=== PATIENT | female | born 1945 | race Caucasian/White ===

== ENCOUNTER → 2017-01-17 | Outpatient (CLI) | payer OTHER ==
[~2017-01-17] MED LIST: ANTICRE6 PO; CEFU500T16 PO; CEPH500C PO; CHOL100040 PO; DILT-115 PO; GLUCTAB7 PO; HYDR-5688 PO; HYDR25TA4 PO; IPRASOL4 INH; MOME200A INH; MONT1TAB3 PO; MULT-506 PO; PREMARIN CREAM PV; PRLSR20 PO; TRMCR515 TOP; VNTHFA/IN INH
--- NOTE | 2017-01-17 14:30 | MAMMOGRAPHY REPORT ---
BILATERAL DIGITAL SCREENING MAMMOGRAM WITH CAD: 01/17/2017 CLINICAL HISTORY: Routine screening examination. TECHNIQUE: Bilateral CC, MLO and repeat right MLO views were obtained. Current study was also evalu ated with a Computer Aided Detection (CAD) system. COMPARISON: Comparison is made to exams dated: 01/15/2016 mammogram, 01/10/2014 mammogram, 01/12/2015 mammogram, 01/07/2013 mammogram, 01/07/2012 mammogram, and 04/25/2011 mammogram - [facility]. BREAST COMPOSITION: There are scattered areas of fibroglandular density in both breasts. FINDINGS: There are multiple bilateral circumscribed masses scattered throughout the breasts, some o f which are fluctuating in size compared to prior exams, most compatible with benign fibrocystic ivanna nges and fluctuating cysts. There are a few scattered benign-appearing microcalcifications bilatera lly. No suspicious spiculated or irregular mass, architectural distortion or cluster of suspicious microcalcifications is seen. IMPRESSION: ACR BI-RADS CATEGORY 1: NEGATIVE There is no mammographic evidence of malignancy. A 1 year screening mammogram is recommended. The p atient will receive written notification of the results. Approximately 10% of breast cancers are not detected with mammography. A negative mammographic repor t should not delay biopsy if a clinically suggestive mass is present. Myrtle Kent M.D. ay/:01/17/2017 10:30:59 [employer]ingle Roofer: Keira VERDUGO(Rodríguez)(Toya), [facility] letter sent: Normal 1/2 BI-RADS Code: ACR BI-RADS Category 1: Negative
== END | disposition home or self-care (01) ==
LOC: C.MAMM 10:06
PROVIDERS: ATTEND Family Medicine
DX: Z12.31 Encounter for screening mammogram for malignant neoplasm of breast (principal)

== ENCOUNTER → 2017-02-03 | Outpatient (CLI) | payer OTHER ==
[2017-02-03 17:15] LABS: BASO % 0.7 %; BASO ABS # 0.04 K/uL (0-0.2); COMPLETE YES; EOS % 2.4 %; HEMATOCRIT 36.7 % (37-47); LYMPH % 28.5 %; LYMPH ABS # 1.57 K/uL (1.2-3.4); MEAN CELL VOLUME 96.1 fL (80-100); MEAN CORPUSCULAR HEMOGLOBIN 31.2 pg (25-34); MEAN CORPUSCULAR HGB CONC 32.4 g/dl (32-36); MEAN PLATELET VOLUME 9.6 fL (7.4-10.4); MONO % 13.1 %; NEUT % 55.3 %; PLATELET COUNT 345 K/uL (130-400); RED BLOOD COUNT 3.82 M/uL (4.2-5.4); WHITE BLOOD COUNT 5.51 K/uL (4.8-10.8)
[2017-02-03 17:17] LABS: URINE APPEARANCE CLEAR (CLEAR); URINE BILIRUBIN NEG (NEG); URINE COLOR YELLOW; URINE NITRITE NEG (NEG); URINE SPECIFIC GRAVITY 1.014 (1.000-1.030); UROBILINOGEN NEG (NEG)
[2017-02-03 17:18] LABS: REVIEW REQ? NO
[2017-02-03 17:19] LABS: MANUAL MICROSCOPIC REQUIRED? NO
[2017-02-03 17:27] LABS: BLOOD UREA NITROGEN 25 mg/dl (7-18); BUN/CREATININE RATIO 20.6 (10-20); CALCIUM 10.5 mg/dl (8.5-10.1); CARBON DIOXIDE 28 mmol/L (21-32); CHLORIDE 101 mmol/L (98-107); GLUCOSE 96 mg/dl (70-99); POTASSIUM 4.1 mmol/L (3.5-5.1); SODIUM 138 mmol/L (136-145)
[2017-02-03 18:01] LABS: RATIO 171.2 mcg/mg (0-30.0)
== END | disposition home or self-care (01) ==
LOC: C.LABPVFM 11:38
PROVIDERS: ATTEND Internal Medicine
DX: I10 Essential (primary) hypertension (principal)

== ENCOUNTER → 2017-05-02 | Outpatient (CLI) | payer OTHER ==
[~2017-05-02] MED LIST changes: -CEPH500C PO
== END | disposition home or self-care (01) ==
LOC: C.LABPVFM 08:40
PROVIDERS: ATTEND Nurse Practitioner
DX: N18.9 Chronic kidney disease, unspecified (principal); N39.0 Urinary tract infection, site not specified

== ENCOUNTER 2017-05-04 21:03 | Emergency (ER) | payer OTHER ==
[~2017-05-04] VITALS: Ht 160 cm; Wt 94.0 kg
[~2017-05-04 21:03] MED LIST changes: -ANTICRE6 PO; -HYDR-5688 PO; -TRMCR515 TOP
[2017-05-04 21:05] VITALS: TEMP 36.5; Ht 160 cm; Wt 94.0 kg
[2017-05-04] MEDS ORDERED: HYDROCODONE/ACETAMOPHEN 5/325MG TAB PO STA (21:55)
[2017-05-04] MEDS ORDERED: NORCO 5/325MG HOME PACK PO ONE (22:00)
--- NOTE | 2017-05-04 22:09 | DIAGNOSTIC IMAGING REPORT ---
LEFT WRIST 6 VIEWS CLINICAL HISTORY: Fall with left wrist pain. FINDINGS: 6 views of the left wrist are obtained. No prior studies are available for comparison at the time of dictation. The skeletal structures are osteopenic. There is an avulsion fracture of the ulnar styloid. There is an impacted and comminuted fracture of the distal radial metaphysis with intra-articular extension, posteriorly distracted fragments, and apex volar angulation. Overlying soft tissue edema is noted. Suspect an age indeterminant and possibly chronic fracture through the distal scaphoid. This appears corticated on the frontal view. No additional fracture is identified. The radiocarpal articulation appears intact. Cystic degenerative change is seen within the lunate and the triquetrum. Arthritic change is noted at the first carpometacarpal articulation. A ring is present on the fourth finger. IMPRESSION: 1. There is an impacted, comminuted, and angulated fracture of the distal radial metaphysis as above with overlying soft tissue edema. 2. There is an avulsion fracture of the ulnar styloid. 3. Suspect an age indeterminant and possibly chronic fracture of the distal scaphoid. Correlate for point tenderness at this site. Consider a dedicated scaphoid view for further assessment. Electronically signed by: Tanmay Zuniga M.D. 05/04/2017 10:07 PM Dictated Date/Time: 05/04/2017 10:03 PM
[2017-05-04] MEDS ORDERED: ANTICRE6 PO (22:36)
[2017-05-05] MEDS ORDERED: HYDR-5688 PO (00:02)
[2017-05-05 00:14] VITALS: BP 125/67; PULSE 66; O2SAT 98
--- NOTE | 2017-05-05 04:03 | EMERGENCY ROOM VISIT NOTE ---
History Report prepared by Sergey: Carla Hall Under the Supervision of: Dr. Acosta Mays M.D. First contact with patient: 21:48 Chief Complaint: WRIST PAIN Stated Complaint: FELL, LT WRIST INJURY/PAIN History of Present Illness The patient is a 72 year old female who presents to the Emergency Room with complaints of an episode of wrist pain occurring a few hours ago. The patient states she was at a picnic and was walking up slanted stairs when she lost her balance and fell. She states that she went down on her hand in an attempt to catch herself. The patient currently rates her pain as a 7/10 in severity and an 8/10 in severity when it first occurred. The patient denies numbness or tingling in her hand. Pt denies LOC, headache, fevers, chills, diaphoresis, visual changes, neck pain, chest pain, breathing difficulties, nausea, vomiting , abdominal pain, back pain, melena, hematochezia, urinary symptoms, weakness, lymphadenopathy, rash, or other complaints. Source of History: patient Onset: few hours ago Position: wrist Symptom Intensity: 7/10 Timing: other (episode) Associated Symptoms: No numbness Note: The patient denies tingling. Review of Systems See HPI for pertinent positives and negatives. A total of ten systems were reviewed and were otherwise negative. Past Medical & Surgical Medical Problems: (1) Asthma (2) Hypertension (3) Kidney disease Family History Hypertension Kidney disease Kidney stones Lung disease Social History Smoking Status: Never Smoker Marital Status: Housing Status: lives with family Occupation Status: retired Current/Historical Medications Scheduled Cholecalciferol (Vitamin D-1000), 1 TAB PO DAILY Diltiazem Hcl Ext Rel (Tiazac), 240 MG PO DAILY Pidzklclbmh-Hskqtppjkre-Gmu C- (Glucosamine Chondroitin), 1 TAB PO DAILY Hydrochlorothiazide (Hctz), 25 MG PO DAILY Ipratropium-Albuterol (Duoneb), 1 TREATMENT INH QID Mometasone Furoate-Formoterol (Dulera 200/5 Mcg), 2 PUFFS INH BID Montelukast Sodium (Singulair), 10 MG PO DAILY Multivitamin (Multivitamin), 1 TAB PO DAILY Omeprazole (Prilosec), 40 MG PO DAILY [Antibiotic], 1 CAP PO BID [Premarin Cream], 1 APPLN PV UD Scheduled PRN Albuterol Hfa (Ventolin Hfa), 1-2 PUFFS INH Q6H PRN for SOB/Wheezing Hydrocodone/Acetaminophen 5MG/325MG (Adkins 5MG/325MG), 1-2 TABS PO Q6H PRN for Pain Allergies Coded Allergies: No Known Allergies (Verified , 05/04/17) Physical Exam Vital Signs Date Time Temp Pulse Resp B/P (MAP) Pulse Ox O2 Delivery O2 Flow Rate FiO2 05/05/17 00:14 66 16 125/67 98 05/04/17 22:46 96 20 185/133 98 Room Air 05/04/17 21:05 36.5 97 22 210/108 100 Room Air Physical Exam GENERAL: Awake, alert, uncomfortable appearing, in no distress HENT: Normocephalic, atraumatic. Oropharynx unremarkable. EYES: Normal conjunctiva. Sclera non-icteric. NECK: Supple. No nuchal rigidity. FROM. No JVD. RESPIRATORY: Clear to auscultation. CARDIAC: Regular rate, normal rhythm. Extremities warm and well perfused. Pulses equal. ABDOMEN: Soft, non-distended. No tenderness to palpation. No rebound or guarding. No masses. RECTAL: Deferred. MUSCULOSKELETAL: Chest examination reveals no tenderness. The back is symmetrical on inspection without obvious abnormality. There is no CVA tenderness to palpation. No joint edema. RUE atraumatic. Left shoulder, left upper arm, and left elbow atraumatic. Swelling and tenderness of left wrist. LUE is NVI. LOWER EXTREMITIES: Atraumatic. NEURO: Normal sensorium. No sensory or motor deficits noted. SKIN: No rash or jaundice noted. Medical Decision & Procedures ER Provider Diagnostic Interpretation: Radiology results as stated below per my review and radiologist interpretation: LEFT WRIST 6 VIEWS CLINICAL HISTORY: Fall with left wrist pain. FINDINGS: 6 views of the left wrist are obtained. No prior studies are available for comparison at the time of dictation. The skeletal structures are osteopenic. There is an avulsion fracture of the ulnar styloid. There is an impacted and comminuted fracture of the distal radial metaphysis with intra-articular extension, posteriorly distracted fragments, and apex volar angulation. Overlying soft tissue edema is noted. Suspect an age indeterminant and possibly chronic fracture through the distal scaphoid. This appears corticated on the frontal view. No additional fracture is identified. The radiocarpal articulation appears intact. Cystic degenerative change is seen within the lunate and the triquetrum. Arthritic change is noted at the first carpometacarpal articulation. A ring is present on the fourth finger. IMPRESSION: 1. There is an impacted, comminuted, and angulated fracture of the distal radial metaphysis as above with overlying soft tissue edema. 2. There is an avulsion fracture of the ulnar styloid. 3. Suspect an age indeterminant and possibly chronic fracture of the distal scaphoid. Correlate for point tenderness at this site. Consider a dedicated scaphoid view for further assessment. Electronically signed by: Tanmay Zuniga M.D. 05/04/2017 10:07 PM Dictated Date/Time: 05/04/2017 10:03 PM Chest x-ray. Findings: A chest x-ray was performed and revealed no pneumothorax , effusion, infiltrate, pulmonary edema, free air under the diaphragm, or wide mediastinum. Medications Administered Medications (Trade) Dose Ordered Sig/Can Route Start Time Stop Time Status Last Admin Dose Admin Acetaminophen/ Hydrocodone Bitart (Adkins 5/325 Tab) 1 tab NOW STAT PO 05/04/17 21:55 05/04/17 21:58 DC 05/04/17 22:17 1 TAB Acetaminophen/ Hydrocodone Bitart (Adkins 5/325mg Home Pack) 1 homepack UD ONCE PO 05/04/17 22:00 05/04/17 22:02 DC 05/04/17 22:17 1 HOMEPACK ED Course 2149: The patient was evaluated in room B9. A complete history and physical exam was performed. 2154: Ordered Adkins 5/325 Tab 1 tab PO. 2199: Ordered Adkins 5/325mg Home Pack 1 homepack PO. 2203: Discussed the patient's case Dr. Quiñones. He agreed to splinting, pain medication, and RICE therapy. He will see the patient at 9 AM in the office tomorrow. 2250: I reevaluated the patient and she now has left rib pain that is tender to palpation. She will have a chest x-ray completed. 0008: I reevaluated the patient. Discussed results and discharge instructions: She verbalized understanding and agreement. The patient is ready for discharge. Medical Decision Medication Reconciliation: I attest that I have personally reviewed the patient' s current medication list Patient was found to have a slightly elevated blood pressure due to circumstances. I do not believe that the patient requires hypertension monitoring. Prior records reviewed and summarized above. Triage Nursing notes reviewed and agree them. Additional history obtained from the patient's . The patient's history was concerning for traumatic injury. Differential diagnosis: Etiologies such as fracture, dislocation, neurovascular compromise, compartment syndrome, soft tissue injury, as well as others were entertained. Physical examination: Left wrist injury noted initially. The patient then was complaining of some left rib tenderness, albeit mild. On examination she did have some left lateral rib tenderness. ER treatment provided: Splinting Adkins Sling Icepack On reassessment the patient felt better. Diagnostics interpreted by me: Imaging studies: Xrays as above. Consultation: A consultation was placed with the orthopedist, Dr Mark. The case was discussed and diagnostics were reviewed. The patient will be seen tomorrow at 9 AM in the office. The patient has a left wrist fracture. This will need orthopedic evaluation. I suspect that she bruised her left ribs as well. Clinically she is doing well and the circumstances and will follow-up with orthopedics tomorrow morning. By the evaluation outlined above emergent etiologies such as open fracture, dislocation, neurovascular compromise, compartment syndrome, infections, pneumothorax, hemothorax, as well as others were deemed relatively unlikely. The patient and were informed about the findings as listed above. All questions were answered and they were pleased with the treatment. Return instructions were outlined and the patient was discharged in stable condition. Prescription management: Adkins Referral: The patient was referred to Dr. Mark of Orthopedics for follow-up care for her fracture. The patient was referred back to her primary physician for blood pressure recheck Consults Time Called: 2201 Consulting Physician: Dr. Quiñones Returned Call: 2203 Discussed the patient's case Dr. Quiñones. He agreed to splinting, pain medication , and RICE therapy. He will see the patient at 9 AM in the office tomorrow. Impression Primary Impression: Left wrist fracture Additional Impression: Hypertension Scribe Attestation The scribe's documentation has been prepared under my direction and personally reviewed by me in its entirety. I confirm that the note above accurately reflects all work, treatment, procedures, and medical decision making performed by me. Departure Information Dispostion Home / Self-Care Prescriptions Hydrocodone/Acetaminophen 5MG/325MG (Adkins 5MG/325MG) Tab 1-2 TABS PO Q6H Y for Pain, #20 TAB Prov: Acosta Mays MD 05/05/17 Referrals Jax Lobo M.D. (PCP) Forms HOME CARE DOCUMENTATION FORM, IMPORTANT VISIT INFORMATION, WORK / SCHOOL INSTRUCTIONS Patient Instructions My [facility] Additional Instructions ORTHOPEDIC INSTRUCTIONS: DO NOT drive, drink alcohol, operate machinery, or perform dangerous activities today. You were given medications in the ER that can affect your ability to safely function or operate a vehicle. Hydrocodone/acetaminophen 5/325mg: Take 1-2 pills every 6 hours as needed for pain. Avoid additional Acetaminophen/Tylenol, alcohol, operating machinery or dangerous equipment, working on ladders or roofs, DRIVING, or situations where being under the influence may be dangerous. It is recommended to use a stool softener such as Colace, 100mg twice daily while taking this medication to avoid constipation. Ibuprofen(Motrin, Advil) may be used for fever or pain. Use 600mg every six hours as needed. Take with food. Avoid using more than 2400mg in a 24 hour period. Do not use 2400mg per day for more than three consecutive days without physician direction. Prolonged inappropriate use can lead to stomach upset or ulcers. Ice compresses for 20 minutes at a time four times daily for 2-3 days. Use the sling as instructed. Remove your arm from the sling 4-6 times a day and move all the joints around to keep them loose. Rest and elevate your injury. Do not get the splint wet. If your splint feels excessively tight, you have worsening pain, develop numbness or tingling, or your digits appear blue, loosen the ariana wrap. Then reapply the ariana wrap gently without removing the splint. If your symptoms are not quickly relieved return to the ER for re- evaluation. Return to the ER immediately for any numbness, tingling, severe pain, chest pain , difficulty breathing, extreme swelling in the extremity or as needed. Follow-up with Dr. Mark at Dr. Fritz's office tomorrow morning at 9 AM. If you have any problems Call [phone]. Follow-up with your primary care physician next week for a recheck of your current condition and blood pressure. Problem Qualifiers
--- NOTE | 2017-05-05 11:10 | DIAGNOSTIC IMAGING REPORT ---
CHEST ONE VIEW PORTABLE CLINICAL HISTORY: 72 years year-old Female presenting with left rib pain, fall. COMPARISON STUDY: 11/30/2015. TECHNIQUE: Single portable upright AP view of the chest was performed. FINDINGS: Cardiomediastinal silhouette with mildly prominent main pulmonary artery, unchanged from prior. Minimal atherosclerosis of the aortic arch. Lungs and pleural spaces are clear. No displaced rib fracture. Upper abdomen normal. IMPRESSION: No acute cardiopulmonary disease or displaced rib fracture. Electronically signed by: Jax Calvert 05/05/2017 7:24 AM Dictated Date/Time: 05/05/2017 7:19 AM
[2017-05-05] MEDS ORDERED: TRMCR515 TOP (14:27)
== END 2017-05-05 00:15 | disposition home or self-care (01) ==
LOC: C.EDB 21:04
DX: S62.102A Fracture of unspecified carpal bone, left wrist, initial encounter for closed fracture (principal); I10 Essential (primary) hypertension; W10.9XXA Fall (on) (from) unspecified stairs and steps, initial encounter; J45.909 Unspecified asthma, uncomplicated; N18.9 Chronic kidney disease, unspecified; Z82.49 Family history of ischemic heart disease and other diseases of the circulatory system

== ENCOUNTER → 2017-05-05 | Outpatient (CLI) | payer OTHER ==
[~2017-05-05] MED LIST changes: +ANTICRE6 PO; +HYDR-5688 PO; +TRMCR515 TOP
--- NOTE | 2017-05-05 13:18 | DIAGNOSTIC IMAGING REPORT ---
CHEST 2 VIEWS ROUTINE CLINICAL HISTORY: PRE OP PAGER [id number], PT TO X-RAY 2ND, PT TO CPL 3RD COMPARISON STUDY: No previous studies for comparison. FINDINGS: The bones soft tissues and hemidiaphragms are normal. The cardiomediastinal silhouette is normal. The lungs are clear. The pulmonary vasculature is normal. IMPRESSION: Negative chest. No change from the prior study. Electronically signed by: Mikhail Hernandez M.D. 05/05/2017 1:17 PM Dictated Date/Time: 05/05/2017 1:16 PM
[2017-05-05 14:36] LABS: BASO % 0.2 %; BASO ABS # 0.01 K/uL (0-0.2); COMPLETE YES; EOS % 0.6 %; HEMATOCRIT 35.2 % (37-47); IG% 0.3 %; LYMPH % 15.9 %; LYMPH ABS # 1.02 K/uL (1.2-3.4); MEAN CELL VOLUME 90.7 fL (80-100); MEAN CORPUSCULAR HEMOGLOBIN 30.7 pg (25-34); MEAN CORPUSCULAR HGB CONC 33.8 g/dl (32-36); MEAN PLATELET VOLUME 9.2 fL (7.4-10.4); MONO % 9.2 %; NEUT % 73.8 %; PLATELET COUNT 353 K/uL (130-400); RED BLOOD COUNT 3.88 M/uL (4.2-5.4); WHITE BLOOD COUNT 6.41 K/uL (4.8-10.8)
[2017-05-05 14:44] LABS: URINE APPEARANCE CLEAR (CLEAR); URINE BILIRUBIN NEG (NEG); URINE COLOR YELLOW; URINE EPITHELIAL CELL AUTO >30 /lpf (0-5); URINE NITRITE NEG (NEG); UROBILINOGEN NEG (NEG)
[2017-05-05 14:46] LABS: BLOOD UREA NITROGEN 29 mg/dl (7-18); BUN/CREATININE RATIO 19.1 (10-20); CALCIUM 10.4 mg/dl (8.5-10.1); CARBON DIOXIDE 24 mmol/L (21-32); CHLORIDE 99 mmol/L (98-107); GLUCOSE 106 mg/dl (70-99); SODIUM 132 mmol/L (136-145)
[2017-05-05 14:47] LABS: MANUAL MICROSCOPIC REQUIRED? NO; REVIEW REQ? NO
[2017-05-05 14:48] LABS: PARTIAL THROMBOPLASTIN RATIO 1.1; PROTHROMBIN TIME (PATIENT) 10.5 SECONDS (9.0-12.0)
== END | disposition home or self-care (01) ==
LOC: C.LAB 12:36
PROVIDERS: ATTEND Orthopaedic Surgery Orthopaedic Surgery of the Spine
DX: Z01.810 Encounter for preprocedural cardiovascular examination (principal); Z01.811 Encounter for preprocedural respiratory examination; Z01.812 Encounter for preprocedural laboratory examination; I44.4 Left anterior fascicular block; R94.31 Abnormal electrocardiogram [ECG] [EKG]

== ENCOUNTER 2017-05-15 13:18 | Day surgery (SDC) | payer OTHER ==
[2017-05-05 14:05] VITALS: BMI 36.0
[2017-05-05 14:30] VITALS: BMI 36.0
[~2017-05-15] VITALS: Ht 160 cm; Wt 94.1 kg
[~2017-05-15 13:18] MED LIST changes: -ANTICRE6 PO; +CEFAZOLIN 2000 MG/60 ML D5W 60 ML IV SCH; -CEFU500T16 PO; +LACTATED RINGER'S 1000ML 1,000 ML IV SCH
[2017-05-15 13:45] VITALS: BP 180/81; PULSE 72; TEMP 36.8; O2SAT 96; Ht 160 cm; Wt 94.1 kg
[2017-05-15 14:31] LABS: BUN/CREATININE RATIO 20.7 (10-20); CALCIUM 10.4 mg/dl (8.5-10.1); CREATININE 1.2 mg/dl (0.60-1.20); POTASSIUM 3.6 mmol/L (3.5-5.1)
[2017-05-15] MEDS ORDERED: LIDOCAINE HCL 2% 2 ML VIAL (20MG/ML) ONE (14:56)
[2017-05-15] MEDS ORDERED: PROPOFOL IV EMULSION 10 MG/ML 20 ML VIAL IV ONE (14:56)
[2017-05-15] MEDS ORDERED: FENTANYL CITRATE INJ 50 MCG/1 ML 2 ML VIAL ONE ×3 (14:56→16:36)
[2017-05-15] MEDS ORDERED: ONDANSETRON INJ 2 MG/ML 2 ML VIAL ONE (14:56)
[2017-05-15] MEDS ORDERED: DEXAMETHASONE SOD INJ 4 MG/ML VIAL ONE (14:56)
[2017-05-15] MEDS ORDERED: MIDAZOLAM HCL 1 MG/ML 2ML VIAL ONE (14:56)
[2017-05-15] MEDS ORDERED: BUPIVACAINE 0.5 % 5 MG/1 ML MPF 30ML VIAL ONE (15:08)
--- NOTE | 2017-05-15 15:10 | History and Physical ---
History & Physical Date May 15, 2017. Chief Complaint Left wrist pain and deformity History of Present Illness The patient is a 72 year old female with complaints of left wrist pain post trauma numbness and tingling paresthesias Past Medical/Surgical History Medical Problems: (1) Asthma (2) Hypertension (3) Kidney disease Additional History Hepatic Disease: No Hypertension: Yes Heart Disease: Yes Allergies Coded Allergies: No Known Allergies (Verified , 05/15/17) Home Medications Scheduled Cholecalciferol (Vitamin D-1000), 1 TAB PO QAM Diltiazem Hcl Ext Rel (Tiazac), 240 MG PO QAM Trgdsknmiyc-Nwwllvjvabo-Tgt C- (Glucosamine Chondroitin), 1 TAB PO BID Hydrochlorothiazide (Hctz), 25 MG PO QAM Mometasone Furoate-Formoterol (Dulera 200/5 Mcg), 2 PUFFS INH BID Montelukast Sodium (Singulair), 10 MG PO QAM Multivitamin (Multivitamin), 1 TAB PO QAM Omeprazole (Prilosec), 40 MG PO QAM Scheduled PRN Albuterol Hfa (Ventolin Hfa), 1-2 PUFFS INH Q6H PRN for SOB/Wheezing Hydrocodone/Acetaminophen 5MG/325MG (Brea 5MG/325MG), 1-2 TABS PO Q6H PRN for Pain Ipratropium-Albuterol (Duoneb), 1 TREATMENT INH QID PRN for Shortness of Breath Triamcinolone Acet (Triamcinolone Acetonide), 1 APPLN TOP BID PRN for Itching [Premarin Cream], 1 APPLN PV UD PRN for DRYNESS Physical Examination Skin: warm/dry, no rash Eyes: normal inspection ENT: normal ENT inspection Head: normocephalic, atraumatic Neck: supple, trachea midline Respiratory/Chest: lungs clear Cardiovascular: regular rate, rhythm Abdomen / GI: normal bowel sounds Back: normal inspection Extremities: + pertinent finding (deformity left wrist with shortening) Diagnosis Comminuted interarticular fracture left wrist ASA Classification: ASA Class III Plan of Treatment Patient be taken to the operating room for a general anesthetic reduction will be performed application of external fixator left wrist
[2017-05-15] MEDS ORDERED: BUPIVACAINE/EPINEPHRINE 0.5% MPF 1:200,000 10 ML VIAL ONE (15:31)
[2017-05-15] MEDS ORDERED: SODIUM CHLORIDE 0.9% 1000ML 1,000 ML IV SCH (16:21)
[2017-05-15] MEDS ORDERED: HYDR-5688 PO (16:23)
[2017-05-15] MEDS ORDERED: LABETALOL HCL IV 5 MG/ML 20ML IV ONE ×2 (16:25→16:45)
--- NOTE | 2017-05-15 16:26 | Discharge Instructions ---
Discharge Instructions Date of Service May 15, 2017. Admission Reason for Admission: Left Wrist Fracture Discharge Discharge Diagnosis / Problem: left wrist fracture Discharge Goals Goal(s): Improve function, Therapeutic intervention Activity Recommendations Activity Limitations: per Instructions/Follow-up section Limited use of left arm. May do gentle range of motion of fingers. Instructions / Follow-Up Instructions / Follow-Up MEDICATIONS: * Resume previous medications unless instructed otherwise by your surgeon. * Always take pain medication on a full stomach or with food to avoid upset stomach. * Do not drink alcohol or drive while taking narcotics. * Ibuprofen or Tylenol may be taken if narcotic not needed. SPECIAL CARE INSTRUCTIONS: __ None _x_ Keep extremity elevated and iced x 48 hours; apply ice 20-30 minutes 8-10 times/day. May remove at night. _x_ Sling __24 hrs/day __ Remove at night __ Shoulder Immobilizer __ 24 hrs/day __ Remove at night _x_ Dressing _x_ Maintain until seen in office, may shower with plastic over site __ Remove dressings in 24-48 hours and then may shower __ Cover incisions with band-aids after showering __ Do not remove steri-strips Call physician if chills or temperature rises above 102 degrees or pain unrelieved by prescribed pain medications at . . Follow up in office with Dr. Jas Richards. 05/21. Call to schedule appointment if needed. Current Hospital Diet Patient's current hospital diet: Discharge Diet Recommended Diet: Regular Diet Procedures Procedures Performed: Closed reduction and application of external fixator left wrist. Pending Studies Studies pending at discharge: no Medical Emergencies . Who to Call and When: Medical Emergencies: If at any time you feel your situation is an emergency, please call 911 immediately. . Non-Emergent Contact Non-Emergency issues call your: Surgeon . "Provider Documentation" section prepared by [place]. . VTE Core Measure Inpt VTE Proph given/why not?: Treatment not indicated
--- NOTE | 2017-05-15 16:27 | [facility] Operative Report ---
Operative Report Operative Date May 15, 2017. Pre-Operative Diagnosis Comminuted interarticular fracture, left wrist. Post-Operative Diagnosis Same as preop. Procedure(s) Performed Closed reduction and application of external fixator left wrist. Surgeon Dr. Mark Assembled [employer] Repairer Surgeon(s) Jose Manuel Bernard, PAC Estimated Blood Loss 2 ml Findings Comminuted left wrist fracture Specimens None. Complication(s) None Disposition Recovery Room / PACU Indications Comminuted displaced left wrist fracture Description of Procedure Patient was taken to the operating room where an LMA anesthetic provided to the patient. Tourniquet was applied to her left upper extremity scrubbed with Betadine prep with ChloraPrep. Draped her sterile. We then exsanguinated the upper extremity to 250 mmHg. Mention with the surgery. We made a skin incision over the index metacarpal and the distal midportion of the radius. Soft tissue was divided is able to engage the index metacarpal with 2 Steinmann pins along with the radius as well to reduce the distal left radius in near anatomic position. We restored length the volar tilt to the wrist. External fixator tightened down on the left wrist closed the wounds with 4-0 nylon suture. Dressings applied. Tourniquet was deflated. Margin needle count correct at the close of procedure there is no apparent interoperative complications patient was safely brought to recovery room satisfactory and stable. Thank you I attest to the content of the Intraoperative Record and any orders documented therein. Any exceptions are noted below.
[2017-05-15] MEDS ORDERED: HYDROmorphone INJ 1 MG/ML SYR IV PRN (16:30)
[2017-05-15] MEDS ORDERED: ATROPINE SULFATE 0.1 MG/ML 5ML SYR IV PRN (16:30)
[2017-05-15] MEDS ORDERED: EpHEDrine SULFATE INJ 50 MG/ML AMP IV PRN (16:30)
[2017-05-15] MEDS ORDERED: FENTANYL CITRATE INJ 50 MCG/1 ML 2 ML VIAL IV PRN (16:30)
[2017-05-15] MEDS ORDERED: LABETALOL HCL IV 5 MG/ML 20ML IV PRN (16:30)
[2017-05-15] MEDS ORDERED: MEPERIDINE HCL 25 MG/ML CARP IV PRN (16:30)
[2017-05-15] MEDS ORDERED: HYDROCODONE/ACETAMOPHEN 5/325MG TAB PO PRN ×2 (16:30)
[2017-05-15] MEDS ORDERED: ONDANSETRON INJ 2 MG/ML 2 ML VIAL IV PRN (16:30)
--- NOTE | 2017-05-15 16:31 | DIAGNOSTIC IMAGING REPORT ---
FLUOROSCOPIC IMAGES OF THE LEFT WRIST CLINICAL HISTORY: External fixation. COMPARISON STUDY: Left wrist radiograph May 04, 2017. Fluoroscopy time: 11 seconds. FINDINGS: 2 fluoroscopic images from external fixation are noted. These images demonstrate the distal left radial and ulnar fractures. Alignment of the distal left radial fracture appears improved since prior exam. IMPRESSION: Fluoroscopic images from left wrist external fixation. Improved alignment of distal left radial fracture since prior exam. Electronically signed by: Franky Luciano M.D. 05/15/2017 4:29 PM Dictated Date/Time: 05/15/2017 4:28 PM
--- NOTE | 2017-05-15 17:27 | Anesthesiology Progress Note ---
Anesthesia Post Op Note Date & Time May 15, 2017 at 17:27 Vital Signs Pain Intensity: 4 Vital Signs Past 12 Hours Date Time Temp Pulse Resp B/P (MAP) Pulse Ox O2 Delivery O2 Flow Rate FiO2 05/15/17 17:24 36.9 05/15/17 17:18 73 16 96 05/15/17 17:18 72 16 05/15/17 17:16 172/82 05/15/17 17:13 73 17 05/15/17 17:13 72 17 90 05/15/17 17:11 183/70 05/15/17 17:08 74 16 95 05/15/17 17:08 74 16 05/15/17 17:06 180/95 05/15/17 17:03 72 17 05/15/17 17:03 72 17 94 05/15/17 17:02 173/72 05/15/17 16:59 71 14 05/15/17 16:59 71 14 94 05/15/17 16:56 182/83 05/15/17 16:54 72 17 05/15/17 16:54 71 17 97 05/15/17 16:52 173/88 05/15/17 16:49 69 16 97 05/15/17 16:49 69 16 05/15/17 16:48 60 13 98 05/15/17 16:48 61 13 05/15/17 16:47 198/81 05/15/17 16:43 69 16 05/15/17 16:43 71 16 100 05/15/17 16:42 197/102 05/15/17 16:38 74 23 05/15/17 16:38 75 23 100 05/15/17 16:37 200/93 05/15/17 16:33 72 20 05/15/17 16:33 72 20 100 05/15/17 16:32 195/105 05/15/17 16:30 76 12 05/15/17 16:30 75 12 100 05/15/17 16:27 197/82 05/15/17 16:25 80 16 05/15/17 16:25 80 16 99 05/15/17 16:23 190/90 05/15/17 16:21 197/80 05/15/17 16:20 79 18 05/15/17 16:20 79 18 97 05/15/17 16:20 36.7 79 16 197/80 97 Mask 10 05/15/17 13:45 36.8 72 18 180/81 (114) 96 Room Air Notes Mental Status: alert / awake / arousable, participated in evaluation Pt Amnestic to Procedure: Yes Nausea / Vomiting: adequately controlled Pain: adequately controlled Airway Patency, RR, SpO2: stable & adequate BP & HR: stable & adequate Hydration State: stable & adequate Anesthetic Complications: no major complications apparent The patient is doing well. She is at her baseline.
[2017-05-15] MEDS ORDERED: NURSING VERBAL MED ORDER ONE (18:30)
[2017-05-15] MEDS ORDERED: NORCO 5/325MG HOME PACK PO PRN (18:30)
[2017-05-15 18:40] VITALS: BP 167/74; PULSE 85; TEMP 36.7; O2SAT 95
== END 2017-05-15 18:53 | disposition home or self-care (01) ==
LOC: C.ACU 13:18
PROVIDERS: ATTEND Orthopaedic Surgery Orthopaedic Surgery of the Spine
DX: S52.572A Other intraarticular fracture of lower end of left radius, initial encounter for closed fracture (principal); X58.XXXA Exposure to other specified factors, initial encounter; N18.9 Chronic kidney disease, unspecified; I12.9 Hypertensive chronic kidney disease with stage 1 through stage 4 chronic kidney disease, or unspecified chronic kidney disease

== ENCOUNTER → 2017-06-24 | Outpatient (CLI) | payer OTHER ==
[~2017-06-24] MED LIST changes: -CEFAZOLIN 2000 MG/60 ML D5W 60 ML IV SCH; -LACTATED RINGER'S 1000ML 1,000 ML IV SCH
[2017-06-24 12:35] LABS: BLOOD UREA NITROGEN 19 mg/dl (7-18); BUN/CREATININE RATIO 15.9 (10-20); CARBON DIOXIDE 28 mmol/L (21-32); CHLORIDE 99 mmol/L (98-107); GLUCOSE 93 mg/dl (70-99); POTASSIUM 3.9 mmol/L (3.5-5.1); SODIUM 135 mmol/L (136-145)
[2017-06-24 12:47] LABS: URINE APPEARANCE CLOUDY (CLEAR); URINE BILIRUBIN NEG (NEG); URINE COLOR YELLOW; URINE EPITHELIAL CELL AUTO >30 /lpf (0-5); URINE NITRITE NEG (NEG); URINE PH 6.5 (4.5-7.5); URINE PROTIEN/CREAT RATIO 0.2 (0-0.2); URINE SPECIFIC GRAVITY 1.015 (1.000-1.030); URINE TOTAL PROTEIN 17.1 mg/dl (0-11.9); UROBILINOGEN NEG (NEG)
[2017-06-24 12:55] LABS: MANUAL MICROSCOPIC REQUIRED? NO; REVIEW REQ? NO
== END | disposition home or self-care (01) ==
LOC: C.LABPVFM 09:17
PROVIDERS: ATTEND Internal Medicine
DX: I10 Essential (primary) hypertension (principal)

== ENCOUNTER → 2017-09-19 | Outpatient (CLI) | payer OTHER ==
[2017-09-19 12:54] LABS: ALT/SGPT 22 U/L (12-78); AST/SGOT 15 U/L (15-37); BLOOD UREA NITROGEN 26 mg/dl (7-18); BUN/CREATININE RATIO 19.1 (10-20); CALCIUM 10.3 mg/dl (8.5-10.1); CARBON DIOXIDE 27 mmol/L (21-32); CHLORIDE 102 mmol/L (98-107); CREATININE 1.35 mg/dl (0.60-1.20); GLUCOSE 88 mg/dl (70-99); SODIUM 137 mmol/L (136-145)
[2017-09-19 12:57] LABS: ALB/GLOB RATIO 0.8 (0.9-2); ALKALINE PHOSPHATASE 113 U/L (45-117); CHOLESTEROL 189 mg/dl (0-200); CHOLESTEROL/HDL RATIO 3.8; HDL CHOLESTEROL 50 mg/dl; LDL CHOLESTEROL CALCULATED 118 mg/dl; TRIGLYCERIDES 103 mg/dl (0-150); VERY LOW DENSITY LIPOPROT CALC 21 mg/dl
== END | disposition home or self-care (01) ==
LOC: C.LABPVFM 08:30
PROVIDERS: ATTEND Family Medicine
DX: I10 Essential (primary) hypertension (principal); N18.9 Chronic kidney disease, unspecified

== ENCOUNTER → 2017-11-15 | Outpatient (CLI) | payer OTHER | END | disposition home or self-care (01) | LOC: C.LABSPEC 10:48 | PROVIDERS: ATTEND Internal Medicine | DX: J47.9 Bronchiectasis, uncomplicated (principal) ==

== ENCOUNTER → 2018-01-16 | Outpatient (CLI) | payer OTHER | END | disposition home or self-care (01) | LOC: C.LABPVFM 11:53 | PROVIDERS: ATTEND Family Medicine | DX: R39.9 Unspecified symptoms and signs involving the genitourinary system (principal) ==

== ENCOUNTER → 2018-01-19 | Outpatient (CLI) | payer OTHER ==
--- NOTE | 2018-01-20 14:56 | MAMMOGRAPHY REPORT ---
BILATERAL DIGITAL SCREENING MAMMOGRAM TOMOSYNTHESIS WITH CAD: 01/19/2018 CLINICAL HISTORY: Routine screening. Patient has no complaints. TECHNIQUE: Breast tomosynthesis in addition to standard 2D mammography was performed. Current study was also evaluated with a Computer Aided Detection (CAD) system. COMPARISON: Comparison is made to exams dated: 01/17/2017 mammogram, 01/15/2016 mammogram, 01/12/2015 m ammogram, 01/10/2014 mammogram, 01/07/2013 mammogram, and 01/07/2012 mammogram - [facility]. BREAST COMPOSITION: There are scattered areas of fibroglandular density in both breasts. FINDINGS: No suspicious masses, calcifications, or areas of architectural distortion are noted in ei ther breast. There has been no significant interval change compared to prior exams. Again noted are circumscribed benign-appearing masses scattered in bilateral breasts, which are not significantly ivanna nged. IMPRESSION: ACR BI-RADS CATEGORY 2: BENIGN There is no mammographic evidence of malignancy. A 1 year screening mammogram is recommended. The pa tient will receive written notification of the results. Approximately 10% of breast cancers are not detected with mammography. A negative mammographic report should not delay biopsy if a clinically suggestive mass is present. Cecy Sidhu M.D. /:01/19/2018 13:46:13 Rip Tailer: Evita POWELL)(), [facility] letter sent: Normal 1/2 BI-RADS Code: ACR BI-RADS Category 2: Benign
== END | disposition home or self-care (01) ==
LOC: C.MAMM 10:33
PROVIDERS: ATTEND Family Medicine
DX: Z12.31 Encounter for screening mammogram for malignant neoplasm of breast (principal)

== ENCOUNTER → 2018-01-22 | Outpatient (CLI) | payer OTHER | END | disposition home or self-care (01) | LOC: C.MAMM 09:03 | PROVIDERS: ATTEND Family Medicine | DX: Z13.820 Encounter for screening for osteoporosis (principal); M85.89 Other specified disorders of bone density and structure, multiple sites ==

== ENCOUNTER → 2018-02-06 | Outpatient (CLI) | payer OTHER ==
--- NOTE | 2018-02-06 13:35 | DIAGNOSTIC IMAGING REPORT ---
RIGHT SHOULDER 3 VIEWS CLINICAL HISTORY: Right shoulder pain. FINDINGS: 3 views of the right shoulder are obtained. No prior studies are available for comparison at the time of dictation. The skeletal structures are osteopenic. No fracture or dislocation is identified. There is concavity along the medial aspect of the humeral head with associated bony sclerosis, likely resenting a reverse Hill-Sachs lesion. The glenohumeral articulation is preserved head. The acromioclavicular joint shows mild productive change. The overlying soft tissues are normal as visualized. Imaged right upper lobe lung parenchyma appears clear. There is atherosclerotic calcification of the thoracic aorta. IMPRESSION: 1. No acute fracture or dislocation is identified in the right shoulder. 2. Osteopenia with a chronic-appearing reverse Hill-Sachs lesion identified Electronically signed by: Tanmay Zuniga M.D. 02/06/2018 1:33 PM Dictated Date/Time: 02/06/2018 1:28 PM
== END | disposition home or self-care (01) ==
LOC: C.RADPV 13:13
PROVIDERS: ATTEND Nurse Practitioner Family
DX: M25.511 Pain in right shoulder (principal); S42.201A Unspecified fracture of upper end of right humerus, initial encounter for closed fracture; X58.XXXA Exposure to other specified factors, initial encounter; M85.811 Other specified disorders of bone density and structure, right shoulder

== ENCOUNTER 2019-01-08 10:40 | Inpatient (IN) ==
--- NOTE | 2018-12-07 13:12 | PAT Medication Instructions ---
Medication Instructions Date of Service December 07, 2018 Home Medications albuterol sulfate 2 puff INHALATION Q6H PRN calcium carbonate [Calcium 600] 600 mg PO QAM cholecalciferol (vitamin D3) 1,000 unit PO QAM diltiazem HCl 240 mg PO QAM jgxyfrucsei-usw-hoahyegqa-vitC 2 tab PO BID hydrochlorothiazide 25 mg PO QAM ipratropium-albuterol 3 ml INHALATION Q8H PRN mometasone-formoterol [Dulera] 2 puff INHALATION BID montelukast 10 mg PO QAM multivitamin 1 cap PO QAM omeprazole 40 mg PO QAM STOP taking 2 weeks before surgery (or as soon as possible if surgery is within 2 weeks) bjhlpxnqdpa-zre-nbxxndfrb-vitC 2 tab PO BID DO NOT take the morning of surgery calcium carbonate [Calcium 600] 600 mg PO QAM cholecalciferol (vitamin D3) 1,000 unit PO QAM hydrochlorothiazide 25 mg PO QAM montelukast 10 mg PO QAM multivitamin 1 cap PO QAM Take morning of surgery With a small sip of water, OTHERWISE NOTHING TO EAT OR DRINK AFTER MIDNIGHT: albuterol sulfate 2 puff INHALATION Q6H PRN (use if needed; please bring with you to hospital day of surgery if possible) diltiazem HCl 240 mg PO QAM ipratropium-albuterol 3 ml INHALATION Q8H PRN (if needed) mometasone-formoterol [Dulera] 2 puff INHALATION BID omeprazole 40 mg PO QAM Other Notes If you have any questions please call us at [phone] or [phone] or [phone] or [phone]
--- NOTE | 2018-12-08 10:52 | Anesthesiology Consultation ---
Date of Service December 08, 2018 Assessment & Plan (1) Encounter for pre-operative examination: Plan: Nephrology contacted re: Na of 129. "Would not be concerned." CHECK SODIUM STAT AM DOS. Chart Review Chart Review: Acceptable Risk for Surgery and Patient seen in Pre Admission Testing Teaching & Discussion Instructed NPO after midnight before surgery, except medications with 15 cc of water. Medication instructions provided according to the PAT guidelines. History Surgery Operation Date: 01/08/19 10:45 Proposed Procedures p Right Total Knee Replacement - Lev Tracey DO Height/Weight Height: 5 ft 3 in Weight: 92.4 kg Allergies Allergy/AdvReac Type Severity Reaction Status Date / Time oxycodone [From OxyContin] AdvReac Mild itchy Verified 12/01/18 10:30 Medications Home Medications Medication Instructions Recorded Confirmed Last Taken albuterol sulfate 2 puff INHALATION Q6H PRN 12/01/18 12/01/18 Unknown calcium carbonate [Calcium 600] 600 mg PO QAM 12/01/18 12/01/18 Unknown cholecalciferol (vitamin D3) 1,000 unit PO QAM 12/01/18 12/01/18 Unknown [Vitamin D3] diltiazem HCl 240 mg PO QAM 12/01/18 12/01/18 Unknown buhropvfvnm-hsi-bsgnqnubd-vitC 2 tab PO BID 12/01/18 12/01/18 Unknown [Glucosamine Complex-MSM] hydrochlorothiazide 25 mg PO QAM 12/01/18 12/01/18 Unknown ipratropium-albuterol 3 ml INHALATION Q8H PRN 12/01/18 12/01/18 Unknown mometasone-formoterol [Dulera] 2 puff INHALATION BID 12/01/18 12/01/18 Unknown montelukast 10 mg PO QAM 12/01/18 12/01/18 Unknown multivitamin 1 cap PO QAM 12/01/18 12/01/18 Unknown omeprazole 40 mg PO QAM 12/01/18 12/01/18 Unknown Past Medical History Medical History Hypertension Asthma Dulera, uses neb at least a few times per week. Rarely uses albuterol HFA. CKD (chronic kidney disease) Follows with Dr Mackenzie GERD (gastroesophageal reflux disease) Obesity Past Surgical History Surgical History H/O tubal ligation History of colonoscopy History of open reduction and internal fixation (ORIF) procedure LEFT WRIST History of total shoulder replacement RIGHT 05/2018 Past Anesthesia History No Hx of Anesthesia Complications and No Family Hx of Anesthesia Complications History of PONV No Motion Sickness Screening History of Motion Sickness: No Social History Smoking Status: Never smoker Do You Dip or Chew Tobacco: No Hx Alcohol Use: Yes Alcohol type: wine alcohol intake frequency: holidays/special occasions only Hx Substance Use: No substance use type: does not use Exercise / Class Metabolic Activity III < 4 Walking/Shop/Light housework (Occ SOB with ambulation, denies CP, most activity is grocery shopping) Review of Systems Pt denies any recent chest pain, shortness of breath abve baseline, palpitations , cough above baseline, fever or URI. Physical Exam Vital Signs BP: 138/79 P: 78bpm SPO2: 96% RA T: 97.8 F R: 18 ENMT Mouth: + dentures and + edentulous Thyromental Distance: < 3.5 Finger Breadths (3) Mallampati Class: II Neck normal visual inspection; neck extension not limited Respiratory Auscultation: lungs clear to auscultation bilaterally and + bronchovesicular breath sounds Cardiovascular Rate/Rhythm: regular rate and regular rhythm Heart Sounds: + murmur (I/ systolic RSB) Vessels: no carotid bruit Extremities: no edema Testing Electrocardiogram Date: 12/08/18 Findings: + NSR @ (67) left axis deviation. Chest X-Ray Date: 12/08/18 Findings: + NAD Laboratory Results 12/08/18 11:06 12/08/18 11:06 Blood Type A Positive 12/08/18 11:06 Antibody Screen NEGATIVE 12/08/18 11:06 PT 10.3 Seconds (9.0-12.0) 12/08/18 11:06 INR 1.0 (0.9-1.1) 12/08/18 11:06 APTT 30.1 Seconds (21.0-31.0) 12/08/18 11:06
--- NOTE | 2018-12-08 11:28 | XRay Report ---
XR chest Pre-admission PA/Lat CLINICAL HISTORY: Preoperative evaluation. COMPARISON STUDY: Chest radiograph May 04, 2017. FINDINGS: Right shoulder arthroplasty is incidentally noted. There is no pneumothorax or pleural effu libia. There is no consolidation or evidence for pulmonary edema. Cardiomediastinal silhouette is stab le. The appearance of the chest is unchanged. IMPRESSION: No acute cardiopulmonary findings. Electronically signed by: Franky Luciano M.D. 12/08/2018 11:27 AM
[2018-12-08 12:13] LABS: Basophils # (auto) 0.03 K/uL (0-0.2); Basophils % (auto) 0.6 %; Eosinophils # (auto) 0.03 K/uL (0-0.5); Eosinophils % (auto) 0.6 %; Hematocrit (blood only) 34.6 % (37-47); Hemoglobin 11.9 g/dL (12.0-16.0); Immature Granulocytes # (auto) 0.02 K/uL (0.00-0.02); Immature Granulocytes % (auto) 0.4 %; Lymphocytes # (auto) 1.18 K/uL (1.2-3.4); Mean Corpuscular Hgb Conc 34.4 g/dL (32-36); Mean Corpuscular Volume 91.3 fL (80-100); Mean Platelet Volume 9.4 fL (7.4-10.4); Monocytes # (auto) 0.63 K/uL (0.11-0.59); Monocytes % (auto) 11.8 %; Neutrophils # (auto) 3.47 K/uL (1.4-6.5); Neutrophils % (auto) 64.6 %; Platelet Count 384 K/uL (130-400); RDW Coefficient of Variation 13.5 % (11.5-14.5); RDW Standard Deviation 44.8 fL (36.4-46.3); Red Blood Count 3.79 M/uL (4.2-5.4); White Blood Count 5.36 K/uL (4.8-10.8)
[2018-12-08 12:21] LABS: BUN Creatinine Ratio 16.5 (10-20); Creatinine Clr Calc Pharmacy 49.8 ml/min; Est GFR (African American) 59.2; Est GFR (Non-African American) 51.1; Partial Thromboplastin Ratio 1.2; Partial Thromboplastin Time 30.1 Seconds (21.0-31.0); Potassium 4.3 mmol/L (3.5-5.1); Prothrombin Time 10.3 Seconds (9.0-12.0)
--- NOTE | 2019-01-06 20:27 | History & Physical Report ---
Date of Service January 06, 2019 Assessment & Plan (1) Osteoarthritis of right knee: We will proceed with a right total knee arthroplasty. Postoperatively she will be started on aspirin for DVT prophylaxis. She will be kept overnight in the hospital for postop medical management. She plans to use [employer] upon discharge. Present on Admission?: Yes History of Present Illness Chief Complaint: Primary osteoarthritis of the right knee Primary Care Provider: Sherley Jeffrey MD Brandee is a pleasant 73-year-old female who is been dealing with chronic increasing right knee pain. X-rays and clinical examination have been diagnostic for primary osteoarthritis of the right knee. After failing conservative treatment, she has elected proceed with a right total knee arthroplasty. Allergies Allergy/AdvReac Type Severity Reaction Status Date / Time oxycodone [From OxyContin] Allergy Mild itchy Verified 01/04/19 13:55 Home Medications Home Medications Medication Instructions Recorded Confirmed Type albuterol sulfate 2 puff INHALATION Q6H PRN 12/01/18 12/01/18 History calcium carbonate [Calcium 600] 600 mg PO QAM 12/01/18 12/01/18 History cholecalciferol (vitamin D3) 1,000 unit PO QAM 12/01/18 12/01/18 History [Vitamin D3] diltiazem HCl 240 mg PO QAM 12/01/18 12/01/18 History foxxxfewtbc-ose-podnzlfmt-vitC 2 tab PO BID 12/01/18 12/01/18 History [Glucosamine Complex-MSM] hydrochlorothiazide 25 mg PO QAM 12/01/18 12/01/18 History ipratropium-albuterol 3 ml INHALATION Q8H PRN 12/01/18 12/01/18 History mometasone-formoterol [Dulera] 2 puff INHALATION BID 12/01/18 12/01/18 History montelukast 10 mg PO QAM 12/01/18 12/01/18 History multivitamin 1 cap PO QAM 12/01/18 12/01/18 History omeprazole 40 mg PO QAM 12/01/18 12/01/18 History Past Med/Surg History Medical History Hypertension Asthma Dulera, uses neb at least a few times per week. Rarely uses albuterol HFA. CKD (chronic kidney disease) Follows with Dr Dranov GERD (gastroesophageal reflux disease) Obesity Surgical History H/O tubal ligation History of colonoscopy History of open reduction and internal fixation (ORIF) procedure LEFT WRIST History of total shoulder replacement RIGHT 05/2018 Social History Preferred Language: [place] Communication Ability: Effective Beliefs That Will Affect Care: None Current Living Situation: Spouse Feels Safe at Home: Yes Smoking Status: Never smoker Hx Alcohol Use: Yes Hx Substance Use: No Review of Systems All systems reviewed & are unremarkable except as noted in HPI & below Physical Exam Constitutional: WD/WN, vitals as above Eyes: PERRL, conjunctivae normal, anicteric sclerae ENMT: external ear and nose normal, oropharynx normal Neck: trachea midline, no thyromegaly Respiratory: normal respiratory effort Cardiovascular: RRR, no murmur, no edema Gastrointestinal (Abdomen): normal bowel sounds, soft, nontender, no hepatosplenomegaly Musculoskeletal: On physical examination of the right knee there is a trace effusion. There is near full range of motion and no evidence of instability. There is significant tenderness palpation along the medial and lateral joint lines and over the distal femoral condyles. Psychiatric: A+Ox3, euthymic affect Results & Data Diagnostic Findings Radiographs of the right knee demonstrate advanced osteoarthritis with joint space narrowing osteophyte formation and gnnf-yg-emhd articulation.
[~2019-01-08 10:40] MED LIST changes: +ACETAMINOPHEN 500 MG TAB PO SCH; +BUPIVACAINE 0.5 % 5 MG/1 ML PF 10ML VIAL ONE; +CEFAZOLIN 2000MG 2,000 MG/15 ML SYR IV SCH; -CHOL100040 PO; -DILT-115 PO; +FAMOTIDINE 20 MG TAB PO SCH; +GABAPENTIN 300 MG PO SCH; -GLUCTAB7 PO; -HYDR-5688 PO; -HYDR25TA4 PO; -IPRASOL4 INH; +LR 500ML BOLUS, THEN 15ML/HR IV SCH; +LR 60ML/HR IV SCH; -MOME200A INH; -MONT1TAB3 PO; -MULT-506 PO; -PREMARIN CREAM PV; -PRLSR20 PO; +ROPIVACAINE 0.5% 5 MG/ML 30 ML VIAL ONE; +ROPIVACAINE 0.5% HCL/PF 150 MG, BUPIVACAINE 0.5% MPF 30 ML, EPINEPHrine 30MG/30ML (OR U... INFIL SCH; +TRANEXAMIC ACID 1,000 MG **IV Intra-op IV SCH; +TRANEXAMIC ACID 1,000 MG **IV Pre-op IV SCH; -TRMCR515 TOP; -VNTHFA/IN INH
--- NOTE | 2019-01-08 11:23 | History & Physical Bridge Note ---
Date of Service January 08, 2019 History & Physical Bridge Note I have examined the patient, reviewed the History & Physical and in the interval since the performance of the History & Physical I have noted the following changes of clinical significance: no changes noted
[2019-01-08] MEDS ORDERED: ORTHO JOINT ANESTHETIC ONE (11:42)
[2019-01-08] MEDS ORDERED: POVIDONE-IODINE OP SOLN 30 ML BTL ONE (11:42)
[2019-01-08] MEDS ORDERED: PROPOFOL IV EMULSION 10 MG/ML 20 ML VIAL IV ONE (11:44)
[2019-01-08] MEDS ORDERED: MIDAZOLAM HCL 1 MG/ML 2ML VIAL ONE ×2 (11:44→13:18)
[2019-01-08] MEDS ORDERED: fentaNYL citrate 100 MCG/2 ML VIAL ONE (11:44)
[2019-01-08] MEDS ORDERED: ONDANSETRON INJ 2 MG/ML 2 ML VIAL ONE (11:44)
[2019-01-08] MEDS ORDERED: ONDANSETRON INJ 2 MG/ML 2 ML VIAL IV PRN ×2 (13:08→15:47)
[2019-01-08] MEDS ORDERED: HYDROmorphone INJ 1 MG/ML SYRINGE IV PRN (13:08)
[2019-01-08] MEDS ORDERED: PHENYLEPHRINE 100MCG/ML 5ML SYR IV PRN (13:08)
[2019-01-08] MEDS ORDERED: ATROPINE SULFATE 0.1 MG/ML 10ML SYR IV PRN (13:08)
[2019-01-08] MEDS ORDERED: ePHEDrine sulfate 50 MG/ML AMP IV PRN (13:08)
--- NOTE | 2019-01-08 14:25 | Operative Report ---
Post Operative Report Pre & Post Diagnosis Operation Date: 01/08/19 12:50 Pre-Op Diagnosis: Right Knee Degenerative Joint Disease Post-Op Diagnosis: Right Knee Degenerative Joint Disease Procedure Operation Date: 01/08/19 12:50 Actual Procedures p Right Total Knee Arthroplasty, Cemented(Right) - Lev Tracey DO Surgeon Lev Tracey DO Rockboard Lather Lev Ponce PAC Estimated Blood Loss 10 Findings Consistent with Post-Op Diagnosis Specimens Right femoral and tibial bone Complications none Disposition Disposition: Recovery Room Indications Brandee is a pleasant 73-year-old female who presented my office with chronic increasing right knee pain. X-rays and clinical examination were diagnostic for primary osteoarthritis of the right knee. After failing conservative treatment, she elected proceed with a right total knee arthroplasty. Description of Procedure Implants used: I used a [employer] Vanguard total knee arthroplasty system with a size 67.5 femur, 67 tibia, 28 patella, and a size 10 PS polyethylene bearing. All components were cemented in place with Palacos G cement. The patient arrived [facility] for the above procedure. There were seen in the preoperative holding area and the operative extremity was identified and signed. There were given a preoperative antibiotic, a spinal anesthetic and an adductor nerve block. There were taken back to the operating room and laid on the table in supine position. There were given basic sedation. The operative knee was then prepped and draped in sterile fashion. A timeout was done, and the patient and the operative extremity was properly identified. A midline incision was made directly over the patella. Dissection was taken down to the extensor mechanism. A subvastus arthrotomy was used. The medial retinaculum was released and the fat pad was mostly left intact. The knee was flexed and the ACL, PCL, and meniscus were removed. A drill was sent down the center of the femoral canal followed by an intramedullary cathy. Off that cathy a distal femoral cutting block was placed. 9 mm was resected off the distal femur at 5� of valgus. A posterior referencing AP sizing guide was then placed on the distal femur. The femur measured to be a size 67.5. 2 drill holes were placed in 3� of external rotation. A 4-in-1 cutting block was then impacted into place. Anterior posterior and chamfer cuts were then made. The posterior stabilizing box guide was then impacted into place and the box was resected for the posterior stabilizing component. The proximal tibia was then exposed. A drill was sent down the center of the tibial canal followed by an intramedullary cathy. Off that cathy a proximal tibial resection guide was placed. The proximal tibia was then resected. The tibia measured to be a size 67. The tibial plate was then placed in the appropriate rotation and the tibia was punched. The posterior aspect of the knee was then opened up and any additional meniscus fragments and osteophytes were removed. Trial components were then placed. I used a size 10 PS polyethylene insert. The knee was brought through a full range of motion and felt to be stable. The patella was then everted and 8 mm was resected off the posterior aspect of the patella. The patella measured to be a size 28. 3 peg holes were then drilled. A trial patella was placed. The knee was once again brought through a full ran ge of motion and felt to be stable. Trial components were then removed. The surrounding soft tissues were injected with 100 cc of an orthopedic pain control cocktail. All components were then cemented into place with Palacos G cement. The final polyethylene insert was then snapped into place and the anterior bar was locked. Once cement was dry the tourniquet was deflated. Hemostasis was obtained. A dilute betadyne lavage was then done for 3 minutes. The joint was then irrigated with normal saline solution. The subvastus arthrotomy was then closed with #1 Vicryl suture. The skin was closed with 2-0 Vicryl, 3-0V lock suture, and carolyn. A soft compressive dressing was placed. The patient was then transferred to a hospital bed and taken to the postanesthesia care unit in stable condition. They tolerated the procedure well. I attest to the content of the Intraoperative Record and any orders documented therein. Any exceptions are noted below.
--- NOTE | 2019-01-08 15:19 | XRay Report ---
RIGHT KNEE 2 VIEWS History: Right total knee arthroplasty. Degenerative arthritis. Postop. FINDINGS: The patient is status post a right total knee arthroplasty. The hardware is intact. No frac ture or dislocation. Skin carolyn are in place. IMPRESSION: Right total knee arthroplasty. No evidence for hardware complication. Electronically signed by: Juan Martinez M.D. 01/08/2019 3:17 PM
--- NOTE | 2019-01-08 15:27 | Anesthesiology Progress Note ---
Date of Service January 08, 2019 Anesthesia Post Procedure Vital Signs Vital Signs: Temp Pulse Pulse Resp BP BP Pulse Ox 01/08/19 15:15 61 15 144/67 H 100 01/08/19 15:05 63 20 154/66 H 100 01/08/19 14:55 65 20 151/69 H 100 01/08/19 14:47 36.4 C L 74 21 152/74 H 100 01/08/19 11:15 36.8 C 85 20 154/95 H 98 Pain Intensity Right Knee: Pain Intensity: 0 Notes Mental Status: alert / awake / arousable Patient Amnestic to Procedure: Yes Nausea / Vomiting: adequately controlled Pain: adequately controlled Airway Patency, RR, SpO2: stable & adequate BP & HR: stable & adequate Hydration State: stable & adequate Neuraxial Anesthesia: was administered and sensory block is resolving Anesthetic Complications: no major complications apparent
[2019-01-08] MEDS ORDERED: SODIUM CHLORIDE 0.9% 1000ML 1,000 ML IV SCH (15:47)
[2019-01-08] MEDS ORDERED: ALBUT/IPRATROP 3MG/0.5MG NEB 3 ML VIAL INH PRN (15:47)
[2019-01-08] MEDS ORDERED: NALOXONE HCL 0.4 MG/1 ML VIAL/CARP IV PRN (15:47)
[2019-01-08] MEDS ORDERED: MAGNESIUM HYDROXIDE SUSP 30 ML UDC PO PRN (15:47)
[2019-01-08] MEDS ORDERED: BISACODYL 10 MG SUPP PR PRN (15:47)
[2019-01-08] MEDS ORDERED: HYDROmorphone INJ 0.5 MG/0.5 ML SYR IV PRN (15:47)
[2019-01-08] MEDS ORDERED: METOCLOPRAMIDE HCL INJ 5 MG/ML 2 ML VIAL IV PRN (15:47)
[2019-01-08] MEDS ORDERED: ALBUTEROL HFA 8 GM INHALER INH PRN (15:47)
[2019-01-08] MEDS: KETOROLAC TROMETHAMINE 15 MG/ML VIAL IV SCH (17:13)
[2019-01-08] MEDS: DOCUSATE SODIUM 100 MG CAP PO SCH (20:56)
[2019-01-08] MEDS: ASPIRIN 81 MG ECTAB PO SCH (20:56)
[2019-01-08] MEDS ORDERED: SENNA 8.6 MG TAB PO SCH (21:00)
[2019-01-08] MEDS: CEFAZOLIN 2000MG 2,000 MG/15 ML SYR IV SCH (21:52)
[2019-01-08] MEDS: HYDROCODONE/ACETAMOPHEN 5/325MG TAB PO PRN (21:52)
[2019-01-09] MEDS: KETOROLAC TROMETHAMINE 15 MG/ML VIAL IV SCH ×3 (01:10→06:16)
[2019-01-09] MEDS: CEFAZOLIN 2000MG 2,000 MG/15 ML SYR IV SCH ×2 (05:54→06:15)
[2019-01-09 06:13] LABS: Hematocrit (blood only) 31.7 % (37-47); Hemoglobin 10.3 g/dL (12.0-16.0); Mean Corpuscular Hgb Conc 32.5 g/dL (32-36); Mean Corpuscular Volume 93.2 fL (80-100); Mean Platelet Volume 9.1 fL (7.4-10.4); Platelet Count 309 K/uL (130-400); RDW Coefficient of Variation 12.9 % (11.5-14.5); RDW Standard Deviation 43.6 fL (36.4-46.3); White Blood Count 9.99 K/uL (4.8-10.8)
[2019-01-09 06:45] LABS: BUN Creatinine Ratio 16.3 (10-20); Calcium 9.6 mg/dl (8.5-10.1); Creatinine Clr Calc Pharmacy 41.3 ml/min; Est GFR (African American) 48.1; Est GFR (Non-African American) 41.5; Potassium 4.4 mmol/L (3.5-5.1)
[2019-01-09] MEDS: HYDROCODONE/ACETAMOPHEN 5/325MG TAB PO PRN ×2 (08:04→10:57)
[2019-01-09] MEDS ORDERED: dilTIAZem HCL 240 MG CAPCR PO SCH (09:00)
[2019-01-09] MEDS ORDERED: hydroCHLOROthiazide 25 MG TAB PO SCH (09:00)
[2019-01-09] MEDS ORDERED: PANTOprazole 40 MG TAB PO SCH (09:00)
[2019-01-09] MEDS ORDERED: MULTIVITAMIN TAB PO SCH (09:00)
[2019-01-09] MEDS ORDERED: MONTELUKAST SODIUM 10 MG TABLET PO SCH (09:00)
--- NOTE | 2019-01-09 09:11 | Orthopedic Progress Note ---
Date of Service January 09, 2019 Assessment & Plan (1) Osteoarthritis of right knee: Overall she is doing fairly well. She is not having much pain in the right knee. She is happy with her progress. She will be seen by physical therapy this morning to do ambulation and range of motion exercises. She can be discharged home later today with [facility]. She will follow-up with orthopedics in 2 weeks. Present on Admission?: Yes Carli Irvin was seen and examined at bedside this morning. Overall she is doing very well. She is not having much pain in the right knee. She is been up and ambulating around her room. She has no complaints. Physical Exam Vital Signs (Past 24 Hours): Last Vital Signs Temp 36.6 C 01/09/19 07:20 Pulse 78 01/09/19 07:20 Resp 18 01/09/19 07:20 BP 163/78 H 01/09/19 07:20 Pulse Ox 96 01/09/19 07:20 Musculoskeletal: On physical examination of the right knee, the dressing is clean and dry. She is sitting in a chair comfortably. She is active dorsiflexion and plantarflexion of her right ankle. Sensation is intact. Results & Data Laboratory Results H & H 12/08/18 12/08/18 12/08/18 Range/Units 11:06 11:06 11:06 WBC 5.36 (4.8-10.8) K/uL RBC 3.79 L (4.2-5.4) M/uL Hgb 11.9 L (12.0-16.0) g/dL Hct 34.6 L (37-47) % MCV 91.3 (80-100) fL MCH 31.4 (25-34) pg MCHC 34.4 (32-36) g/dL RDW Std Deviation 44.8 (36.4-46.3) fL RDW Coeff of Giorgi 13.5 (11.5-14.5) % Plt Count 384 (130-400) K/uL MPV 9.4 (7.4-10.4) fL Immature Gran % (Auto) 0.4 % Neut % (Auto) 64.6 % Lymph % (Auto) 22.0 % [place] % (Auto) 11.8 % Eos % (Auto) 0.6 % Baso % (Auto) 0.6 % Immature Gran # (Auto) 0.02 (0.00-0.02) K/uL Neut # (Auto) 3.47 (1.4-6.5) K/uL Lymph # (Auto) 1.18 L (1.2-3.4) K/uL [place] # (Auto) 0.63 H (0.11-0.59) K/uL Eos # (Auto) 0.03 (0-0.5) K/uL Baso # (Auto) 0.03 (0-0.2) K/uL PT 10.3 (9.0-12.0) Seconds INR 1.0 (0.9-1.1) APTT 30.1 (21.0-31.0) Seconds PTT Ratio 1.2 Sodium 129 L (136-145) mmol/L Potassium 4.3 (3.5-5.1) mmol/L Chloride 94 L (98-107) mmol/L Carbon Dioxide 28 (21-32) mmol/L Anion Gap 7.0 (3-11) BUN 18 (7-18) mg/dl Creatinine 1.07 (0.6-1.2) mg/dl Est Cr Clr Drug Dosing 49.8 ml/min Est GFR ( Amer) 59.2 Est GFR (Non-Af Amer) 51.1 BUN/Creatinine Ratio 16.5 (10-20) Glucose 93 (70-99) mg/dl Calcium 10.0 (8.5-10.1) mg/dl Blood Type Antibody Screen 12/08/18 01/08/19 01/09/19 Range/Units 11:06 11:07 05:53 WBC 9.99 (4.8-10.8) K/uL RBC 3.40 L (4.2-5.4) M/uL Hgb 10.3 L (12.0-16.0) g/dL Hct 31.7 L (37-47) % MCV 93.2 (80-100) fL MCH 30.3 (25-34) pg MCHC 32.5 (32-36) g/dL RDW Std Deviation 43.6 (36.4-46.3) fL RDW Coeff of Giorgi 12.9 (11.5-14.5) % Plt Count 309 (130-400) K/uL MPV 9.1 (7.4-10.4) fL Immature Gran % (Auto) % Neut % (Auto) % Lymph % (Auto) % [place] % (Auto) % Eos % (Auto) % Baso % (Auto) % Immature Gran # (Auto) (0.00-0.02) K/uL Neut # (Auto) (1.4-6.5) K/uL Lymph # (Auto) (1.2-3.4) K/uL [place] # (Auto) (0.11-0.59) K/uL Eos # (Auto) (0-0.5) K/uL Baso # (Auto) (0-0.2) K/uL PT (9.0-12.0) Seconds INR (0.9-1.1) APTT (21.0-31.0) Seconds PTT Ratio Sodium 134 L (136-145) mmol/L Potassium (3.5-5.1) mmol/L Chloride (98-107) mmol/L Carbon Dioxide (21-32) mmol/L Anion Gap (3-11) BUN (7-18) mg/dl Creatinine (0.6-1.2) mg/dl Est Cr Clr Drug Dosing ml/min Est GFR ( Amer) Est GFR (Non-Af Amer) BUN/Creatinine Ratio (10-20) Glucose (70-99) mg/dl Calcium (8.5-10.1) mg/dl Blood Type A Positive Antibody Screen NEGATIVE 01/09/19 Range/Units 05:53 WBC (4.8-10.8) K/uL RBC (4.2-5.4) M/uL Hgb (12.0-16.0) g/dL Hct (37-47) % MCV (80-100) fL MCH (25-34) pg MCHC (32-36) g/dL RDW Std Deviation (36.4-46.3) fL RDW Coeff of Giorgi (11.5-14.5) % Plt Count (130-400) K/uL MPV (7.4-10.4) fL Immature Gran % (Auto) % Neut % (Auto) % Lymph % (Auto) % [place] % (Auto) % Eos % (Auto) % Baso % (Auto) % Immature Gran # (Auto) (0.00-0.02) K/uL Neut # (Auto) (1.4-6.5) K/uL Lymph # (Auto) (1.2-3.4) K/uL [place] # (Auto) (0.11-0.59) K/uL Eos # (Auto) (0-0.5) K/uL Baso # (Auto) (0-0.2) K/uL PT (9.0-12.0) Seconds INR (0.9-1.1) APTT (21.0-31.0) Seconds PTT Ratio Sodium 134 L (136-145) mmol/L Potassium 4.4 (3.5-5.1) mmol/L Chloride 102 (98-107) mmol/L Carbon Dioxide 25 (21-32) mmol/L Anion Gap 7.0 (3-11) BUN 21 H (7-18) mg/dl Creatinine 1.27 H (0.6-1.2) mg/dl Est Cr Clr Drug Dosing 41.3 ml/min Est GFR ( Amer) 48.1 Est GFR (Non-Af Amer) 41.5 BUN/Creatinine Ratio 16.3 (10-20) Glucose 107 H (70-99) mg/dl Calcium 9.6 (8.5-10.1) mg/dl Blood Type Antibody Screen Coagulation 12/08/18 Range/Units 11:06 INR 1.0 (0.9-1.1) Diagnostic Findings Postoperative x-rays of the right knee show the prosthesis to be in anatomic alignment without any evidence of fracture, dislocation, or loosening.
--- NOTE | 2019-01-09 09:13 | Discharge Summary ---
Date of Service January 09, 2019 Admission HPI Per Admitting Provider Brandee is a pleasant 73-year-old female who is been dealing with chronic increasing right knee pain. X-rays and clinical examination have been diagnostic for primary osteoarthritis of the right knee. After failing con servative treatment, she has elected proceed with a right total knee arthroplasty. Specialty Data Orthopedic H & H 12/08/18 01/09/19 Range/Units 11:06 05:53 Hgb 11.9 L 10.3 L (12.0-16.0) g/dL Hct 34.6 L 31.7 L (37-47) % Coagulation 12/08/18 Range/Units 11:06 INR 1.0 (0.9-1.1) Discharge Data Consultations 01/08/19 15:47 Consult Case Management - Discharge Planning Routine Procedures Performed Operation Date: 01/08/19 12:50 Actual Procedures p Right Total Knee Arthroplasty, Cemented(Right) - Lev Tracey DO Hospital Course (1) Osteoarthritis of right knee: On January 08, 2019 Brandee arrived at [facility] and underwent a right total knee arthritis without complication. She had a spinal anesthetic and a right adductor nerve block. Postoperatively she was started on aspirin for DVT prophylaxis and discharged to general orthopedic floors. Her hospital course was uneventful. On postop day #1 her H&H was stable and her pain was well controlled. Her creatinine was a little bit high and she has known renal disease but given the risk benefit ratio I still feel that an aspirin 81 mg twice a day is best for DVT prophylaxis. She was seen by physical therapy. She was able to ambulate well around the room and her pain was well controlled. She was then discharged to home with [facility]. She will follow-up with orthopedics in 2 weeks. Discharge Instructions Home Medications Medication Instructions Recorded Confirmed albuterol sulfate 2 puff INHALATION Q6H PRN 12/01/18 12/01/18 calcium carbonate [Calcium 600] 600 mg PO QAM 12/01/18 01/08/19 cholecalciferol (vitamin D3) 1,000 unit PO QAM 12/01/18 01/08/19 [Vitamin D3] diltiazem HCl 240 mg PO QAM 12/01/18 01/08/19 eqklbhwcnhy-fuo-nhepnrfno-vitC 2 tab PO BID 12/01/18 12/01/18 [Glucosamine Complex-MSM] hydrochlorothiazide 25 mg PO QAM 12/01/18 01/08/19 ipratropium-albuterol 3 ml INHALATION Q8H PRN 12/01/18 12/01/18 mometasone-formoterol [Dulera] 2 puff INHALATION BID 12/01/18 01/08/19 montelukast 10 mg PO QAM 12/01/18 01/08/19 multivitamin 1 cap PO QAM 12/01/18 01/08/19 omeprazole 40 mg PO QAM 12/01/18 01/08/19 Previous Rx's Medication Instructions Recorded aspirin [Ecotrin Low Strength] 81 mg PO BID #84 tab 01/09/19 hydrocodone-acetaminophen [[place]] 1 - 2 tab PO Q4H PRN #30 tab 01/09/19
[2019-01-09] MEDS: DOCUSATE SODIUM 100 MG CAP PO SCH (10:56)
[2019-01-09] MEDS: ASPIRIN 81 MG ECTAB PO SCH (10:56)
== END 2019-01-09 11:00 | disposition home health service (06) | DRG 470 ==
LOC: ASU 10:40 → 3E 14:28

== ENCOUNTER 2019-07-23 06:21 | Inpatient (IN) ==
--- NOTE | 2019-06-22 17:13 | PAT Medication Instructions ---
Medication Instructions Date of Service June 23, 2019 Home Medications Dulera 2 puff INHALATION BID Glucosamine Complex-MSM 2 tab PO BID albuterol sulfate 2 puff INHALATION Q6H NEEDED calcium carbonate [Calcium 600] 600 mg PO QAM diltiazem HCl 240 mg PO QAM hydrochlorothiazide 25 mg PO QAM ipratropium-albuterol 3 ml INHALATION Q8H NEEDED montelukast 10 mg PO QAM multivitamin 1 cap PO QAM omeprazole 40 mg PO QAM cholecalciferol (vitamin D3) [Vitamin D3] 2,000 unit PO QAM STOP taking 2 weeks before surgery Glucosamine Complex-MSM 2 tab PO BID DO NOT take the morning of surgery calcium carbonate [Calcium 600] 600 mg PO QAM hydrochlorothiazide 25 mg PO QAM montelukast 10 mg PO QAM multivitamin 1 cap PO QAM cholecalciferol (vitamin D3) [Vitamin D3] 2,000 unit PO QAM Take morning of surgery With a small sip of water, OTHERWISE NOTHING TO EAT OR DRINK AFTER MIDNIGHT: Dulera 2 puff INHALATION BID diltiazem HCl 240 mg PO QAM omeprazole 40 mg PO QAM ipratropium-albuterol 3 ml INHALATION Q8H NEEDED (if needed) albuterol sulfate 2 puff INHALATION Q6H NEEDED (if needed; bring to hospital) Take evening before surgery Dulera 2 puff INHALATION BID albuterol sulfate 2 puff INHALATION Q6H NEEDED (if needed) ipratropium-albuterol 3 ml INHALATION Q8H NEEDED (if needed) Other Notes If you have any questions please call us at [phone] or [phone] or [phone] or [phone]
--- NOTE | 2019-06-23 10:41 | Anesthesiology Consultation ---
Date of Service June 23, 2019 Assessment & Plan (1) Encounter for pre-operative examination: Chart Review Chart Review: Acceptable Risk for Surgery and Patient seen in Pre Admission Testing Consults Requested none Teaching & Discussion Pre-Anesthesia Teaching/Discussion Notes: Instructed NPO after midnight before surgery, except medications with 15 cc of water. Medication instructions provided according to the PAT guidelines. History Surgery Operation Date: 07/23/19 10:25 Proposed Procedures p Left Total Knee Arthroplasty - Lev Tracey DO Height/Weight Height: 5 ft 3 in Weight: 82.5 kg Allergies Allergy/AdvReac Type Severity Reaction Status Date / Time oxycodone [From OxyContin] Allergy Mild itchy Verified 06/18/19 10:43 Medications Home Medications Medication Instructions Recorded Confirmed Last Taken Dulera 2 puff INHALATION BID 12/01/18 06/18/19 05/25/19 Glucosamine Complex-MSM 2 tab PO BID 12/01/18 06/18/19 05/24/19 albuterol sulfate 2 puff INHALATION Q6H PRN 12/01/18 06/18/19 05/23/19 calcium carbonate [Calcium 600] 600 mg PO QAM 12/01/18 06/18/19 05/24/19 diltiazem HCl 240 mg PO QAM 12/01/18 06/18/19 05/25/19 hydrochlorothiazide 25 mg PO QAM 12/01/18 06/18/19 05/24/19 montelukast 10 mg PO QAM 12/01/18 06/18/19 05/24/19 multivitamin 1 cap PO QAM 12/01/18 06/18/19 05/24/19 omeprazole 40 mg PO QAM 12/01/18 06/18/19 05/24/19 cholecalciferol (vitamin D3) 2,000 unit PO QAM 05/11/19 06/18/19 05/24/19 [Vitamin D3] ipratropium-albuterol 0.5 mg-3 3 ml INHALATION QID ml 06/23/19 06/23/19 Unknown mg(2.5 mg base)/3 mL nebulization soln Past Medical History Medical History Interstitial nephritis Varicose veins of lower extremity with inflammation Osteoarthritis Lymphedema Lumbar radiculopathy Hypertension Asthma Dulera, uses neb at least a few times per week. Rarely uses albuterol HFA. Cellulitis of left lower leg (Resolved) CKD (chronic kidney disease) Follows with Dr Mackenzie Chronic cough Diverticular disease GERD (gastroesophageal reflux disease) Obesity Exercise / Class Metabolic Activity III < 4 Walking/Shop/Light housework (Limited due to knee pain. Did walk around [place] though. Able to climb stairs. Denies CP with activity. Does get some SOB on humid days, attributes to asthma. Relieved with inhaler/nebulizer. ) Past Family History Family History Other Family history not known due to adoption Past Surgical History Surgical History H/O tubal ligation History of colonoscopy History of esophagogastroduodenoscopy (EGD) History of open reduction and internal fixation (ORIF) procedure LEFT WRIST--hardware in place History of tooth extraction all teeth History of total right knee replacement (TKR) 01/2019 [facility] History of total shoulder replacement RIGHT 05/08/18: Gonzalez #2, ETT #7.5, Grade 1 View Past Anesthesia History No Hx of Anesthesia Complications and No Family Hx of Anesthesia Complications History of PONV No Hx of PONV and Hx of Motion Sickness Social History Smoking Status: Never smoker Do You Dip or Chew Tobacco: No Hx Alcohol Use: Yes Alcohol type: wine alcohol intake frequency: holidays/special occasions only Hx Substance Use: No substance use type: does not use Review of Systems Patient denies chest pain, dyspnea on exertion, palpitations. +Joint Pain (Knee, Back) +Acid Reflux (Controlled on current medications) +Chronic cough (has been worked up, suspect due to asthma?) +Wheeze/SOB (occasionally due to asthma, relieved with inhaler/nebulizer) Physical Exam Vital Signs BP: 143/81 P: 63 R: 18 T: 97.6 SPO2: 99% on RA Constitutional + obese ENMT Mouth: + dentures (Upper and lower dentures) and + edentulous Thyromental Distance: > or= 3.5 Finger Breadths (4) Mallampati Class: I Neck normal visual inspection; neck extension not limited Respiratory normal respiratory effort Auscultation: lungs clear to auscultation bilaterally Cardiovascular Rate/Rhythm: regular rate and regular rhythm Heart Sounds: + murmur (1/6 systolic) Vessels: no carotid bruit Neurologic moves all extremities Psychiatric Orientation: alert and oriented x 3 Testing Laboratory Results 06/23/19 10:51 06/23/19 10:51 PT 10.3 Seconds (9.0-12.0) 06/23/19 10:51 INR 1.0 (0.9-1.1) 06/23/19 10:51 APTT 25.9 Seconds (21.0-31.0) 06/23/19 10:51 Blood Type A Positive 06/23/19 10:51 Antibody Screen NEGATIVE 06/23/19 10:51 Electrocardiogram Date: 12/08/18 Findings: + NSR @ (67) and + no change from (04/01/18) Left axis deviation Chest X-Ray Date: 12/08/18 Findings: + NAD
[2019-06-23 11:15] LABS: Basophils # (auto) 0.02 K/uL (0-0.2); Basophils % (auto) 0.5 %; Eosinophils # (auto) 0.09 K/uL (0-0.5); Eosinophils % (auto) 2.2 %; Hematocrit (blood only) 34.1 % (37-47); Hemoglobin 11.5 g/dL (12.0-16.0); Lymphocytes # (auto) 1.23 K/uL (1.2-3.4); Lymphocytes % (auto) 30.1 %; Mean Corpuscular Hemoglobin 31.2 pg (25-34); Mean Corpuscular Hgb Conc 33.7 g/dL (32-36); Mean Corpuscular Volume 92.4 fL (80-100); Mean Platelet Volume 9.4 fL (7.4-10.4); Monocytes # (auto) 0.55 K/uL (0.11-0.59); Monocytes % (auto) 13.4 %; Neutrophils % (auto) 53.8 %; Platelet Count 276 K/uL (130-400); RDW Coefficient of Variation 12.7 % (11.5-14.5); RDW Standard Deviation 43.2 fL (36.4-46.3); Red Blood Count 3.69 M/uL (4.2-5.4); White Blood Count 4.09 K/uL (4.8-10.8)
[2019-06-23 11:26] LABS: Partial Thromboplastin Time 25.9 Seconds (21.0-31.0); Prothrombin Time 10.3 Seconds (9.0-12.0)
[2019-06-23 14:18] LABS: BUN Creatinine Ratio 22.6 (10-20); Calcium 10.1 mg/dl (8.5-10.1); Est GFR (African American) 56.9; Est GFR (Non-African American) 49.1; Potassium 3.7 mmol/L (3.5-5.1)
--- NOTE | 2019-07-22 15:05 | History & Physical Report ---
Date of Service July 22, 2019 Assessment & Plan (1) Osteoarthritis of left knee: We will proceed with a left total knee arthroplasty. Postoperatively she will be placed on aspirin for DVT prophylaxis and kept overnight for postoperative medical management. She plans to use [employer] upon discharge. Present on Admission?: Yes History of Present Illness Chief Complaint: Primary osteoarthritis of the left knee Primary Care Provider: Sherley Jeffrey MD Brandee is a pleasant 74-year-old female who underwent a right total knee arthroplasty in January 2019. She had done very well with that. Unfortunately she was still having a lot of pain in her left knee. X-rays and clinical examin ation have been diagnostic for primary osteoarthritis of the left knee. After failing conservative treatment, she has elected to proceed with a left total knee arthroplasty. Allergies Allergy/AdvReac Type Severity Reaction Status Date / Time oxycodone [From OxyContin] Allergy Mild itchy Verified 06/30/19 09:07 Home Medications Home Medications Medication Instructions Recorded Confirmed Type Dulera 2 puff INHALATION BID 12/01/18 06/30/19 History Glucosamine Complex-MSM 2 tab PO BID 12/01/18 06/30/19 History albuterol sulfate 2 puff INHALATION Q6H PRN 12/01/18 06/30/19 History calcium carbonate [Calcium 600] 600 mg PO QAM 12/01/18 06/30/19 History montelukast 10 mg PO QAM 12/01/18 06/30/19 History multivitamin 1 cap PO QAM 12/01/18 06/30/19 History omeprazole 40 mg PO QAM 12/01/18 06/30/19 History cholecalciferol (vitamin D3) 2,000 unit PO QAM 05/11/19 06/30/19 History [Vitamin D3] ipratropium-albuterol 0.5 mg-3 3 ml INHALATION QID ml 06/23/19 06/23/19 History mg(2.5 mg base)/3 mL nebulization soln ciprofloxacin 500 mg tablet 500 mg PO BID #14 tab 06/30/19 06/30/19 Rx diltiazem ER 240 mg capsule,24 See Rx Instructions .ROUTE 07/06/19 Rx hr,extended release .COMPLEX #90 capsule hydrochlorothiazide 25 mg tablet See Rx Instructions .ROUTE 07/19/19 Rx .COMPLEX #90 tablet Past Med/Surg History Medical History Interstitial nephritis Varicose veins of lower extremity with inflammation Osteoarthritis Lymphedema Lumbar radiculopathy Hypertension Asthma Dulera, uses neb at least a few times per week. Rarely uses albuterol HFA. Cellulitis of left lower leg (Resolved) CKD (chronic kidney disease) Follows with Dr Mackenzie Chronic cough Diverticular disease GERD (gastroesophageal reflux disease) Obesity Surgical History H/O tubal ligation History of colonoscopy History of esophagogastroduodenoscopy (EGD) History of open reduction and internal fixation (ORIF) procedure LEFT WRIST--hardware in place History of tooth extraction all teeth History of total right knee replacement (TKR) 01/2019 [facility] History of total shoulder replacement RIGHT 05/08/18: Gonzalez #2, ETT #7.5, Grade 1 View Family History Other Family history not known due to adoption Social History Preferred Language: Pashto Communication Ability: Effective 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 Required: No Beliefs That Will Affect Care: None marital status: Current Living Situation: Spouse Feels Safe at Home: Yes Smoking Status: Never smoker Second Hand Exposure: Yes (FATHER SMOKED) ; Hx Alcohol Use: Yes Alcohol type: wine Hx Substance Use: No Seatbelt Use: always Review of Systems All systems reviewed & are unremarkable except as noted in HPI & below Physical Exam Constitutional: WD/WN, vitals as above Eyes: PERRL, conjunctivae normal, anicteric sclerae ENMT: external ear and nose normal, oropharynx normal Neck: trachea midline, no thyromegaly Respiratory: normal respiratory effort Cardiovascular: RRR, no murmur, no edema Gastrointestinal (Abdomen): normal bowel sounds, soft, nontender, no hepatosplenomegaly Musculoskeletal: On physical examination of the left knee there is a trace effusion. There is near full range of motion and no evidence of instability. There is significant tenderness palpation along the medial and lateral joint lines and over the distal femoral condyles. Psychiatric: A+Ox3, euthymic affect Results & Data Diagnostic Findings Radiographs of the left knee demonstrate advanced osteoarthritis with joint space narrowing osteophyte formation and [id number] articulation.
[~2019-07-23 06:21] MED LIST changes: -BUPIVACAINE 0.5 % 5 MG/1 ML PF 10ML VIAL ONE; +GABAPENTIN 300 MG CAP PO SCH; -GABAPENTIN 300 MG PO SCH; -ROPIVACAINE 0.5% 5 MG/ML 30 ML VIAL ONE; -TRANEXAMIC ACID 1,000 MG **IV Intra-op IV SCH
[2019-07-23] MEDS ORDERED: BUPIVACAINE 0.5 % 5 MG/1 ML PF 10ML VIAL ONE (06:27)
[2019-07-23] MEDS ORDERED: TRANEXAMIC ACID 1,000 MG **IV Intra-op IV SCH (06:30)
[2019-07-23] MEDS ORDERED: DEXAMETHASONE SOD INJ 4 MG/ML VIAL ONE (06:32)
[2019-07-23] MEDS ORDERED: ONDANSETRON INJ 2 MG/ML 2 ML VIAL ONE (06:32)
[2019-07-23] MEDS ORDERED: PROPOFOL IV EMULSION 10 MG/ML 20 ML VIAL IV ONE (06:32)
[2019-07-23] MEDS ORDERED: LIDOCAINE HCL 2% 2 ML VIAL/AMP(20MG/ML) INFIL ONE (06:32)
[2019-07-23] MEDS ORDERED: GLYCOPYRROLATE 0.2 MG/ML VIAL ONE (06:32)
[2019-07-23] MEDS ORDERED: fentaNYL citrate 100 MCG/2 ML VIAL ONE (06:33)
[2019-07-23] MEDS ORDERED: MIDAZOLAM HCL 1 MG/ML 2ML VIAL ONE (06:33)
[2019-07-23] MEDS ORDERED: KETAMINE HCL INJ 50 MG/ML 10 ML VIAL ONE (06:33)
--- NOTE | 2019-07-23 06:50 | History & Physical Bridge Note ---
Date of Service July 23, 2019 History & Physical Bridge Note I have examined the patient, reviewed the History & Physical and in the interval since the performance of the History & Physical I have noted the following changes of clinical significance: no changes noted
[2019-07-23] MEDS ORDERED: ORTHO JOINT ANESTHETIC ONE ×2 (07:03→07:09)
[2019-07-23] MEDS ORDERED: fentaNYL citrate 100 MCG/2 ML VIAL IV PRN (07:56)
[2019-07-23] MEDS ORDERED: ONDANSETRON INJ 2 MG/ML 2 ML VIAL IV PRN ×2 (07:56→11:58)
[2019-07-23] MEDS ORDERED: ATROPINE SULFATE 0.1 MG/ML 10ML SYR IV PRN (07:56)
[2019-07-23] MEDS ORDERED: ePHEDrine sulfate 50 MG/ML AMP IV PRN (07:56)
--- NOTE | 2019-07-23 09:44 | Operative Report ---
Post Operative Report Pre & Post Diagnosis Operation Date: 07/23/19 08:50 Pre-Op Diagnosis: Left Knee Degenerative Joint Disease Post-Op Diagnosis: Left Knee Degenerative Joint Disease Procedure Operation Date: 07/23/19 08:50 Actual Procedures p Left Total Knee Arthroplasty(Left) - Lev Tracey DO Surgeon Lev Tracey DO Regulatory Law Specialist Lev Ponce PAC Estimated Blood Loss 150 Findings Consistent with Post-Op Diagnosis Specimens Left femoral and tibial bone Complications none Disposition Disposition: Recovery Room Indications Brandee is a pleasant 74-year-old female who presented my office with chronic increasing left knee pain. X-rays and clinical examination have been diagnostic for primary osteoarthritis of the left knee. She had a right total knee arthroplasty done in January and did well with that. She has elected to proceed with a left total knee arthroplasty. Description of Procedure Implants used: I used a [employer] Vanguard total knee arthroplasty system with a size 62.5 femur, 67 tibia, 28 patella, and a size 10 PS polyethylene bearing. All components were cemented in place with Palacos G cement. The patient arrived [facility] for the above procedure. There were seen in the preoperative holding area and the operative extremity was identified and signed. There were given a preoperative antibiotic, a spinal anesthetic and an adductor nerve block. There were taken back to the operating room and laid on the table in supine position. There were given basic sedation. The operative knee was then prepped and draped in sterile fashion. A timeout was done, and the patient and the operative extremity was properly identified. A midline incision was made directly over the patella. Dissection was taken down to the extensor mechanism. A subvastus arthrotomy was used. The medial retinaculum was released and the fat pad was mostly left intact. The knee was flexed and the ACL, PCL, and meniscus were removed. A drill was sent down the center of the femoral canal followed by an intramedullary cathy. Off that cathy a distal femoral cutting block was placed. 9 mm was resected off the distal femur at 5 of valgus. A posterior referencing AP sizing guide was then placed on the distal femur. The femur measured to be a size 62.5. 2 drill holes were placed in 3 of external rotation. A 4-in-1 cutting block was then impacted into place. Anterior posterior and chamfer cuts were then made. The posterior stabilizing box guide was then impacted into place and the box was resected for the posterior stabilizing component. The proximal tibia was then exposed. A drill was sent down the center of the tibial canal followed by an intramedullary cathy. Off that cathy a proximal tibial resection guide was placed. The proximal tibia was then resected. The tibia measured to be a size 67. The tibial plate was then placed in the appropriate rotation and the tibia was punched. The posterior aspect of the knee was then opened up and any additional meniscus fragments and osteophytes were removed. Trial components were then placed. I used a size 10 PS polyethylene insert. The knee was brought through a full range of motion and felt to be stable. The patella was then everted and 8 mm was resected off the posterior aspect of the patella. The patella measured to be a size 28. 3 peg holes were then drilled. A trial patella was placed. The knee was once again brought through a full range of motion and felt to be stable. Trial components were then removed. The surrounding soft tissues were injected with 100 cc of an orthopedic pain control cocktail. All components were then cemented into place with Palacos G cement. The final polyethylene insert was then snapped into place and the anterior bar was locked. Once cement was dry the tourniquet was deflated. Hemostasis was obtained. A dilute betadyne lavage was then done for 3 minutes. The joint was then irrigated with normal saline solution. The subvastus arthrotomy was then closed with #1 Vicryl suture. The skin was closed with 2-0 Vicryl, 3-0V lock suture, and carolyn. A soft compressive dressing was placed. The patient was then transferred to a hospital bed and taken to the postanesthesia care unit in stable condition. They tolerated the procedure well. I attest to the content of the Intraoperative Record and any orders documented therein. Any exceptions are noted below.
--- NOTE | 2019-07-23 10:31 | XRay Report ---
XR knee LT 2V routine CLINICAL HISTORY: Surgical Post Op COMPARISON: None. DISCUSSION: Anatomic alignment posttotal left knee arthroplasty. Could contact between prosthetic and underlying bone. Expected postoperative soft tissue changes IMPRESSION: Anatomic alignment posttotal left knee arthroplasty. The above report was generated using voice recognition software. It may contain grammatical, syntax or spelling errors. Electronically signed by: Mikhail Hernandez M.D. 07/23/2019 10:30 AM
--- NOTE | 2019-07-23 10:33 | Anesthesiology Progress Note ---
Date of Service July 23, 2019 Anesthesia Post Procedure Vital Signs Vital Signs: Temp Pulse Pulse Resp BP Pulse Ox 07/23/19 10:25 58 L 17 136/69 100 07/23/19 10:15 60 18 130/71 100 07/23/19 10:05 97.2 F L 70 23 130/59 L 100 07/23/19 07:03 97.7 F 75 20 179/75 H 98 Transfer of Care Handoff Completed per policy Notes Mental Status: alert / awake / arousable and participated in evaluation Patient Amnestic to Procedure: Yes Nausea / Vomiting: adequately controlled Pain: adequately controlled Airway Patency, RR, SpO2: stable & adequate BP & HR: stable & adequate Hydration State: stable & adequate Neuraxial Anesthesia: was administered and sensory block is resolving Anesthetic Complications: no major complications apparent and Pt Satisfied with anesthetic care
[2019-07-23] MEDS ORDERED: NALOXONE HCL 0.4 MG/1 ML VIAL/CARP IV PRN (11:58)
[2019-07-23] MEDS ORDERED: METOCLOPRAMIDE HCL INJ 5 MG/ML 2 ML VIAL IV PRN (11:58)
[2019-07-23] MEDS ORDERED: BISACODYL 10 MG SUPP PR PRN (11:58)
[2019-07-23] MEDS ORDERED: ALBUTEROL HFA 8 GM INHALER INH PRN (11:58)
[2019-07-23] MEDS ORDERED: HYDROmorphone INJ 0.5 MG/0.5 ML SYR IV PRN (11:58)
[2019-07-23] MEDS ORDERED: SODIUM CHLORIDE 0.9% 1000ML 1,000 ML IV SCH (11:58)
[2019-07-23] MEDS ORDERED: MAGNESIUM HYDROXIDE SUSP 30 ML UDC PO PRN (11:58)
[2019-07-23] MEDS ORDERED: hydroCHLOROthiazide 25 MG TAB PO SCH (13:00)
[2019-07-23] MEDS: CIPROFLOXACIN 500 MG TAB PO SCH ×2 (14:08→22:13)
[2019-07-23] MEDS: ACETAMINOPHEN 500 MG TAB PO SCH ×2 (14:08→21:08)
[2019-07-23] MEDS: ALBUT/IPRATROP 3MG/0.5MG NEB 3 ML VIAL INH SCH ×2 (15:09→19:39)
[2019-07-23] MEDS: CEFAZOLIN 2000MG 2,000 MG/15 ML SYR IV SCH ×2 (16:32→23:51)
[2019-07-23] MEDS ORDERED: SENNA 8.6 MG TAB PO SCH (21:00)
[2019-07-23] MEDS: ASPIRIN 81 MG ECTAB PO SCH (21:07)
[2019-07-23] MEDS: DOCUSATE SODIUM 100 MG CAP PO SCH (21:07)
[2019-07-24] MEDS: TRAMADOL HCL 50 MG TABLET PO PRN ×2 (05:03→09:28)
[2019-07-24] MEDS: ACETAMINOPHEN 500 MG TAB PO SCH (05:04)
[2019-07-24 05:56] LABS: Hematocrit (blood only) 28.4 % (37-47); Hemoglobin 9.4 g/dL (12.0-16.0); Mean Corpuscular Hemoglobin 31.3 pg (25-34); Mean Corpuscular Hgb Conc 33.1 g/dL (32-36); Mean Corpuscular Volume 94.7 fL (80-100); Mean Platelet Volume 9.4 fL (7.4-10.4); Platelet Count 264 K/uL (130-400); RDW Coefficient of Variation 13.1 % (11.5-14.5); RDW Standard Deviation 45.7 fL (36.4-46.3); White Blood Count 12.35 K/uL (4.8-10.8)
[2019-07-24 06:32] LABS: BUN Creatinine Ratio 15.6 (10-20); Calcium 9.5 mg/dl (8.5-10.1); Creatinine Clr Calc Pharmacy 33.6 ml/min; Est GFR (African American) 39.7; Est GFR (Non-African American) 34.3; Potassium 4.3 mmol/L (3.5-5.1)
[2019-07-24] MEDS: ALBUT/IPRATROP 3MG/0.5MG NEB 3 ML VIAL INH SCH ×2 (07:25→11:37)
--- NOTE | 2019-07-24 08:05 | Orthopedic Progress Note ---
Date of Service July 24, 2019 Assessment & Plan (1) Osteoarthritis of left knee: Overall she is doing very well. She is not having much pain in the left knee. She will be seen by physical therapy this morning for range of motion and ambulation exercises. She can be discharged home later today if she feels comfortable. She is on aspirin twice a day for DVT prophylaxis. She plans to use [employer] upon discharge. She will follow-up with orthopedics in 2 weeks. Present on Admission?: Yes Carli Irvin was seen and examined at bedside this morning. Overall she is doing very well. She is not having much pain in the left knee. She has already been up and ambulating. She has no complaints. Physical Exam Musculoskeletal: On physical examination of the left knee, the dressing is clean and dry. She was up and ambulating while was talking to her. She was going to the bathroom. Her leg lengths are equal. She is active dorsiflexion and plantarflexion of the left ankle. Results & Data Vital Signs (Past 12 Hours) Vital Signs Temp Pulse Pulse Resp BP Pulse Ox 07/24/19 07:27 65 18 97 07/24/19 07:00 36.8 C 87 18 172/75 H 97 07/24/19 04:03 36.7 C 77 16 158/83 H 94 07/23/19 23:20 36.6 C 67 18 152/84 H 96 07/23/19 20:20 36.5 C 68 16 136/71 98 Laboratory Results H & H 06/23/19 07/24/19 Range/Units 10:51 05:34 Hgb 11.5 L 9.4 L (12.0-16.0) g/dL Hct 34.1 L 28.4 L (37-47) % Coagulation 06/23/19 Range/Units 10:51 INR 1.0 (0.9-1.1) Diagnostic Findings Postoperative x-rays of the left knee show the prosthesis to be in anatomic alignment without any evidence of fracture, dislocation, or loosening. PG Care Time/CCT Total # of Minutes Spent Total Time Spent with Patient: Total time spent is greater than 50% in coordination of care (as documented) at patient's floor/unit and/or counseling patient:
--- NOTE | 2019-07-24 08:08 | Discharge Summary ---
Date of Service July 24, 2019 Admission HPI Per Admitting Provider Brandee is a pleasant 74-year-old female who underwent a right total knee arthroplasty in January 2019. She had done very well with that. Unfortunately she was still having a lot of pain in her left knee. X-rays and clinical examination have been diagnostic for primary osteoarthritis of the left knee. After failing conservative treatment, she has elected to proceed with a left total knee arthroplasty. Principal Diagnosis Left total knee arthroplasty Discharge Data Allergies Allergy/AdvReac Type Severity Reaction Status Date / Time oxycodone [From OxyContin] Allergy Mild itchy Verified 07/23/19 06:56 Consultations 07/23/19 11:58 Consult Case Management - Discharge Planning Routine Procedures Performed Operation Date: 07/23/19 08:50 Actual Procedures p Left Total Knee Arthroplasty(Left) - Lev Tracey DO Ordered Studies 07/23/19 05:00 US - OR guided needle placemen Routine Hospital Course (1) Osteoarthritis of left knee: On July 23, 2000 Derian arrived at [facility] and underwent a left total knee arthroplasty without complication. She had a spinal anesthetic and a left adductor nerve block. Postoperatively she was started on aspirin for DVT prophylaxis and discharged to general orthopedic floors. Her hospital course was uneventful. On postop day #1 her H&H was stable and her pain was well controlled. She was able to ambulate well with physical therapy. She was then discharged home with [employer]. She will follow-up with orthopedics in 2 weeks. Total Time Total Time Spent Total Time Spent (In Minutes): 20 Discharge Plan Discharge Items Patient Disposition: Home - Home Health Services Reason For Visit: Left Knee Degenerative Joint Disease Discharge Diagnosis: Left total knee arthroplasty Activity: As commented below Non-emergency contact: Surgeon Call non-emergency contact if: your wound has increased redness and your wound has increased drainage Follow-up/Referrals: Sherley Jeffrey MD [Primary Care Provider] - Diet: Regular Addtl Attending Provider Instructions: Activity and Therapy Recommendations: * If you are using [facility] then therapy will be provided at your home until they feel you have accomplished all of your goals. * If you are using [facility] then Physical Therapy will be provided until they feel you are ready to start Outpatient Physical Therapy. * If you are not using home therapy then Outpatient Physical Therapy should start about 3-5 days from your day of surgery. Therapy will last about 6-10 weeks * It is important not to put a pillow under your knee when you are relaxing or sleeping. It is just as important to make sure you are getting your knee perfectly straight as it is to regain your knee bend. * You were shown a series of exercises in the hospital. Do these exercises three times each day including the exercises you were shown in physical therapy. * Get up and walk several times each day. For the first four weeks, try not to stand or walk for more than one hour at a time. If you do stand or walk for more than one hour, you will not hurt anything, but your leg will likely swell. * As you feel comfortable, you may change from the walker or crutches to a cane and then to independent walking. Medications: * Narcotic You will likely be sent home from the hospital with a prescription for the narcotic pain medication that worked best throughout your stay. * Aspirin Most patients will be required to take Aspirin 81mg twice a day for 6 weeks after surgery. This is obtained [id number] and a prescription is not necessary. * Other medications may be prescribed for specific circumstances. If you have any questions, please call the office at . * Resume previous home medications unless otherwise instructed TEDs/Elastic Stockings: The white elastic stockings help limit swelling and prevent blood clots from forming in your legs.~ The more you wear them, the more they work. Wear them for six weeks. Dressing Care: If the incision is not draining then you may leave the carolyn open to air. If there is a little bit of drainage or if the carolyn are getting stuck on your clothing then cover the incision with a dry dressing. The carolyn will be removed at your 2 week follow-up appointment. Showering: You may shower 5 days from the day of surgery. Let the soapy shower water run over the carolyn and pat them dry. Do not scrub or soak the incision. Things To Watch For: * Drainage from the incision site that occurs more than one week after your surgery. * Increased redness at the incision site. * Fever above 102 degrees Fahrenheit. * Unusual chest pain or shortness of breath. * Call [facility] at with any of the above problems Follow-Up Visit: Follow-up with Dr. Tracey 2-3 weeks after your day of surgery. An appointment was probably scheduled when you signed-up for surgery in the office. If you have any questions call Office Instructions: More detailed instructions as well as Frequently Asked Questions were provided in a folder by our office when you signed-up for surgery. Please review these instructions when you get home. If you have any further questions or concerns, please feel free to call the off ice at [phone] Pending Studies at Discharge: No Stand-Alone Forms: My [facility] Medications and DC Order Prescriptions: New aspirin [Ecotrin Low Strength] 81 mg Tablet,Delayed Release (Dr/Ec) 81 mg PO BID Qty: 84 RF: 0 tramadol 50 mg Tablet 50 mg PO Q4H PRN (Reason: pain) Qty: 30 RF: 0 Continued diltiazem HCl 240 mg capsule,extended release 24 hr See Rx Instructions .ROUTE .COMPLEX Qty: 90 RF: 0 hydrochlorothiazide 25 mg tablet See Rx Instructions .ROUTE .COMPLEX Qty: 90 RF: 0 ciprofloxacin HCl [Cipro] 500 mg tablet 500 mg PO BID Qty: 14 RF: 0 calcium carbonate [Calcium 600] 600 mg calcium (1,500 mg) Tablet 600 mg PO QAM RF: 0 montelukast 10 mg Tablet 10 mg PO QAM RF: 0 albuterol sulfate 90 mcg/actuation Hfa Aerosol Inhaler 2 puff INHALATION Q6H PRN (Reason: sob) RF: 0 multivitamin Capsule 1 cap PO QAM RF: 0 Glucosamine Complex-MSM Capsule 2 tab PO BID RF: 0 omeprazole 20 mg Tablet,Delayed Release (Dr/Ec) 40 mg PO QAM RF: 0 Dulera 200-5 mcg/actuation Hfa Aerosol Inhaler 2 puff INHALATION BID RF: 0 ipratropium-albuterol 0.5 mg-3 mg(2.5 mg base)/3 mL solution for nebulization 3 ml INHALATION QID RF: 0 cholecalciferol (vitamin D3) [Vitamin D3] 2,000 unit Tablet 2,000 unit PO QAM RF: 0 Discharge Orders: Discharge Order (Routine); Ordered 07/24/19 Ordered By: Lev Tracey Admission Data Admit Date/Time: 07/23/19 10:10 Attending Provider: Lev Tracey Admit Provider: Lev Tracey Primary Care Provider: Sherley Jeffrey
[2019-07-24] MEDS: ASPIRIN 81 MG ECTAB PO SCH (08:45)
[2019-07-24] MEDS: CIPROFLOXACIN 500 MG TAB PO SCH (08:45)
[2019-07-24] MEDS: DOCUSATE SODIUM 100 MG CAP PO SCH (08:45)
[2019-07-24] MEDS ORDERED: hydroCHLOROthiazide 25 MG TAB PO SCH (09:00)
[2019-07-24] MEDS ORDERED: MULTIVITAMIN TAB PO SCH (09:00)
[2019-07-24] MEDS ORDERED: dilTIAZem HCL 240 MG CAPCR PO SCH (09:00)
[2019-07-24] MEDS ORDERED: PANTOprazole 40 MG TAB PO SCH (09:00)
[2019-07-24] MEDS ORDERED: MONTELUKAST SODIUM 10 MG TABLET PO SCH (09:00)
== END 2019-07-24 13:18 | disposition home health service (06) | DRG 470 ==
LOC: ASU 06:21 → 3E 10:10

== ENCOUNTER 2021-02-21 09:25 | Inpatient (IN) ==
[2021-02-21] MEDS ORDERED: methylPREDNISolone 125 MG/2 ML VIAL IV STA (09:39)
[2021-02-21] MEDS ORDERED: SODIUM CHLORIDE 0.9% 500 ML IV STA (09:39)
[2021-02-21] MEDS ORDERED: ALBUTEROL 0.083% NEBU SOLN 3 ML VIAL NEB STA (09:39)
--- NOTE | 2021-02-21 09:45 | Emergency Department Note ---
Impression & Plan CHF (congestive heart failure), Hypertension, A-fib ED Provider Note NAME: JADE MILLER AGE: 76 SEX: F : 1945 ARRIVES VIA: Walk-In INFORMANT: Patient ED PROVIDER(S): Charles Cervantes DO CHIEF COMPLAINT: Shortness of breath with cough HPI: Patient is a 76-year-old female with a past medical history asthma, anemia, hypercalcemia, cellulitis who presents to the ER for cough and shortness of breath. Symptoms started over the past 24 hours. She admits to persistent cough. Shortness of breath is present with exertion. She has had some mild swelling in her bilateral legs for the past week. No shortness of breath with lying flat. She gets short of breath with exertion or with bed coughing fits. She denies any chest pain. No belly pain, nausea vomiting or diarrhea. No dysuria urgency or frequency. She has used her inhaler with minimal relief. She received her second dose of Covid vaccine at the end of January. ROS: See above HPI for pertinent positives & negatives. A total of 10 systems reviewed and were otherwise negative. PAST MEDICAL HISTORY:See Below PAST SURGICAL HISTORY:See Below FAMILY HISTORY:See Below SOCIAL HISTORY:See Below HOME MEDICATIONS:See Below ALLERGIES:See Below VITALS:See Below PHYSICAL EXAMINATION: GENERAL: Sitting up in bed, alert, disheveled with a persistent cough EYE EXAM: normal conjunctiva. OROPHARYNX: no exudate, no erythema, lips, buccal mucosa, and tongue normal and mucous membranes are moist NECK: supple, no nuchal rigidity, no adenopathy, non-tender LUNGS: Poor air movement with mild wheeze at the bilateral bases. Normal chest wall mechanics HEART: no murmurs, S1 normal and S2 normal ABDOMEN: abdomen soft, non-tender, normo-active bowel sounds, no masses, no rebound or guarding. UPPER EXTREMITIES: upper extremities are grossly normal. LOWER EXTREMITIES: Mild edema bilaterally. Calves are equal bilateral. NEURO EXAM: Normal sensorium, cranial nerves II-XII grossly intact, normal speech, no gross weakness of arms, no gross weakness of legs. MEDICAL DECISION MAKING: Patient is a 76-year-old female who presents to the ER for shortness of breath and swelling in the legs which is been getting worse over the past week. IV was established blood work was obtained. Labs show no significant leukocytosis and mild anemia at 10.9 thousand. BMP with creatinine 1.2. Troponin was negative. proBNP was elevated at 2600. Lipase was normal. Covid was negative. Chest x- ray with congestive changes. She was given IV Lasix. She was significantly winded with any exertion. Discussed with hospitalist admitted for new onset A. fib with CHF. Triage Nursing notes reviewed. Limited review of prior medical records performed Vital Signs: reviewed and remarkable for HTN and tachypneic Differential diagnosis: Differential diagnoses includes but is not limited to pneumonia, bronchitis, COPD/Asthma exacerbation, pneumothorax, pulmonary embolism, congestive heart failure, acute coronary syndrome ER treatment provided: See below Diagnostics interpreted by me: ECG: A. fib rate 80 Left axis No PVCs Peak T waves V4 through V6 Cardiac Monitoring: An order was placed for continuous cardiac monitoring. The m onitor shows a rate of 78 with sinus rhythm. Laboratory studies: As stated above and show below. Imaging studies: Portable AP upright 1 view of the chest shows congestive changes Consultation(s): Discussed with the hospitalist for further evaluation Procedures: none Critical Care: None Past Med/Surg History Medical History Asthma Cellulitis of left lower leg Chronic cough CKD (chronic kidney disease) Diverticular disease GERD (gastroesophageal reflux disease) Hypertension Interstitial nephritis Lumbar radiculopathy Lymphedema Obesity Osteoarthritis Varicose veins of lower extremity with inflammation Surgical History H/O tubal ligation History of colonoscopy History of esophagogastroduodenoscopy (EGD) History of open reduction and internal fixation (ORIF) procedure History of tooth extraction History of total right knee replacement (TKR) History of total shoulder replacement S/P total knee arthroplasty Family History Sister Breast cancer Other Family history not known due to adoption Denies family history of Ovarian cancer Prostate cancer Myocardial infarction Colorectal cancer Social History Smoking Status: Never smoker Second Hand Exposure: Yes (FATHER SMOKED); Hx Alcohol Use: Yes Alcohol type: wine Alcohol Intake Frequency: Monthly or Less Hx Substance Use: No Preferred Language: Italian Communication Ability: Effective Visual Impairment: No Limitations Linking Machine 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 Required: No Beliefs That Will Affect Care: None marital status: Current Living Situation: Spouse current occupational status: retired Feels Safe at Home: Yes caffeine: Yes Dental Care, Regularly: No Physical Activity Frequency: Other Physical Activity Frequency Comment: Occasional exercise Seatbelt Use: always Sunscreen Use: Yes Assistive Devices: Denture - Upper, Denture - Lower, Glasses and Walker Allergies Allergies Allergy/AdvReac Type Severity Reaction Status Date / Time oxycodone [From OxyContin] Allergy Mild itchy Verified 02/21/21 11:30 Home Meds Home Medications Medication Instructions Recorded Confirmed Glucosamine Complex-MSM 2 tab PO BID 12/01/18 02/21/21 cholecalciferol (vitamin D3) 2,000 unit PO QAM 05/11/19 02/21/21 [Vitamin D3] diltiazem HCl 240 mg PO QAM 02/21/21 02/21/21 hydrochlorothiazide 25 mg PO QAM 02/21/21 02/21/21 montelukast 10 mg PO QAM 02/21/21 02/21/21 multivitamin 1 tab PO QAM 02/21/21 02/21/21 Previous Rx's Medication Instructions Recorded albuterol sulfate 90 mcg/actuation 2 puff INHALATION Q6H PRN #6.7 gm 01/03/20 aerosol inhaler diclofenac sodium 1 % topical gel 2 g TOPICAL QID #100 g 07/31/20 mometasone-formoterol HFA 200 2 puff INHALATION Q12H #13 gm 11/23/20 mcg-5 mcg/actuation aerosol inhaler ipratropium 0.5 mg-albuterol 3 mg See Rx Instructions .ROUTE 12/01/20 (2.5 mg base)/3 mL nebulization .COMPLEX #360 milliliter soln simvastatin 20 mg tablet 20 mg PO QPM #90 tab 01/04/21 omeprazole 20 mg capsule,delayed See Rx Instructions .ROUTE 02/12/21 release .COMPLEX #180 capsule Results & Data (ED) Vital Signs Vital Signs - 24 hr 02/21/21 09:28 02/21/21 09:32 02/21/21 10:00 Temperature 36.2 C L Temperature Source Temporal Artery Scan Pulse Rate 89 83 Pulse Rate [Left Finger] Pulse Rate from SpO2 Sensor 84 Pulse Rhythm Regular Pulse Rhythm [Left Finger] Pulse Strength Normal Pulse Strength [Left Finger] Respiratory Rate 26 H 19 Respiratory Effort / Characteristics Labored Short of Breath Non-Labored Respiratory Depth Normal Normal Respiratory Pattern Tachypnea Regular Blood Pressure 209/183 H 176/118 H Blood Pressure [Right Arm] Blood Pressure Mean 191 137 Blood Pressure Mean [Right Arm] Blood Pressure Position Sitting Pulse Oximetry 96 100 Oxygen Delivery Method Room Air Room Air Sepsis Recent Fever Within 48 Hours No Sepsis New/Unexplained Change in Mental Status No Sepsis Action Taken by Nursing No Action Required 02/21/21 10:03 02/21/21 10:09 02/21/21 10:14 Temperature Temperature Source Pulse Rate 80 Pulse Rate [Left Finger] 81 Pulse Rate from SpO2 Sensor 82 Pulse Rhythm Regular Pulse Rhythm [Left Finger] Pulse Strength Pulse Strength [Left Finger] Respiratory Rate 18 16 21 Respiratory Effort / Characteristics Non-Labored Spontaneous Respiratory Depth Respiratory Pattern Blood Pressure Blood Pressure [Right Arm] Blood Pressure Mean Blood Pressure Mean [Right Arm] Blood Pressure Position Pulse Oximetry 97 100 Oxygen Delivery Method Room Air Room Air Sepsis Recent Fever Within 48 Hours Sepsis New/Unexplained Change in Mental Status Sepsis Action Taken by Nursing 02/21/21 10:20 02/21/21 10:30 02/21/21 10:32 Temperature Temperature Source Pulse Rate 77 84 79 Pulse Rate [Left Finger] Pulse Rate from SpO2 Sensor 78 76 83 Pulse Rhythm Pulse Rhythm [Left Finger] Pulse Strength Pulse Strength [Left Finger] Respiratory Rate 24 20 19 Respiratory Effort / Characteristics Respiratory Depth Respiratory Pattern Blood Pressure 189/135 H Blood Pressure [Right Arm] Blood Pressure Mean 153 Blood Pressure Mean [Right Arm] Blood Pressure Position Pulse Oximetry 100 100 100 Oxygen Delivery Method Sepsis Recent Fever Within 48 Hours Sepsis New/Unexplained Change in Mental Status Sepsis Action Taken by Nursing 02/21/21 10:39 02/21/21 10:40 02/21/21 10:50 Temperature Temperature Source Pulse Rate 82 82 Pulse Rate [Left Finger] 85 Pulse Rate from SpO2 Sensor 80 82 Pulse Rhythm Pulse Rhythm [Left Finger] Regular Pulse Strength Pulse Strength [Left Finger] Normal Respiratory Rate 18 24 18 Respiratory Effort / Characteristics Non-Labored Respiratory Depth Normal Respiratory Pattern Blood Pressure Blood Pressure [Right Arm] 189/135 H Blood Pressure Mean Blood Pressure Mean [Right Arm] 153 Blood Pressure Position Pulse Oximetry 100 99 98 Oxygen Delivery Method Room Air Sepsis Recent Fever Within 48 Hours Sepsis New/Unexplained Change in Mental Status Sepsis Action Taken by Nursing 02/21/21 11:00 02/21/21 11:01 02/21/21 11:10 Temperature Temperature Source Pulse Rate 83 83 83 Pulse Rate [Left Finger] Pulse Rate from SpO2 Sensor 85 88 80 Pulse Rhythm Pulse Rhythm [Left Finger] Pulse Strength Pulse Strength [Left Finger] Respiratory Rate 27 H 26 H 24 Respiratory Effort / Characteristics Respiratory Depth Respiratory Pattern Blood Pressure Blood Pressure [Right Arm] Blood Pressure Mean 179 Blood Pressure Mean [Right Arm] Blood Pressure Position Pulse Oximetry 96 97 97 Oxygen Delivery Method Sepsis Recent Fever Within 48 Hours Sepsis New/Unexplained Change in Mental Status Sepsis Action Taken by Nursing 02/21/21 11:15 02/21/21 11:20 02/21/21 11:32 Temperature Temperature Source Pulse Rate 81 89 82 Pulse Rate [Left Finger] Pulse Rate from SpO2 Sensor 88 87 84 Pulse Rhythm Pulse Rhythm [Left Finger] Pulse Strength Pulse Strength [Left Finger] Respiratory Rate 22 24 33 H Respiratory Effort / Characteristics Respiratory Depth Respiratory Pattern Blood Pressure 169/99 H Blood Pressure [Right Arm] Blood Pressure Mean 238 122 Blood Pressure Mean [Right Arm] Blood Pressure Position Pulse Oximetry 93 96 97 Oxygen Delivery Method Sepsis Recent Fever Within 48 Hours Sepsis New/Unexplained Change in Mental Status Sepsis Action Taken by Nursing 02/21/21 12:00 Temperature Temperature Source Pulse Rate 83 Pulse Rate [Left Finger] Pulse Rate from SpO2 Sensor 82 Pulse Rhythm Pulse Rhythm [Left Finger] Pulse Strength Pulse Strength [Left Finger] Respiratory Rate 17 Respiratory Effort / Characteristics Respiratory Depth Respiratory Pattern Blood Pressure 172/93 H Blood Pressure [Right Arm] Blood Pressure Mean 119 Blood Pressure Mean [Right Arm] Blood Pressure Position Pulse Oximetry 95 Oxygen Delivery Method Sepsis Recent Fever Within 48 Hours Sepsis New/Unexplained Change in Mental Status Sepsis Action Taken by Nursing Laboratory Data Result diagrams: 02/21/21 09:55 02/21/21 09:55 Lab Results 02/21/21 02/21/21 02/21/21 Range/Units 09:55 09:55 09:55 WBC 5.04 (4.8-10.8) K/uL RBC 3.60 L (4.2-5.4) M/uL Hgb 10.9 L (12.0-16.0) g/dL Hct 33.1 L (37-47) % MCV 91.9 (80-100) fL MCH 30.3 (25-34) pg MCHC 32.9 (32-36) g/dL RDW Std Deviation 44.7 (36.4-46.3) fL RDW Coeff of Giorgi 13.2 (11.5-14.5) % Plt Count 285 (130-400) K/uL MPV 8.9 (7.4-10.4) fL Immature Gran % (Auto) 0.2 % Neut % (Auto) 64.3 % Lymph % (Auto) 19.6 % [place] % (Auto) 12.5 % Eos % (Auto) 3.0 % Baso % (Auto) 0.4 % Neut # (Auto) 3.24 (1.4-6.5) K/uL Lymph # (Auto) 0.99 L (1.2-3.4) K/uL [place] # (Auto) 0.63 H (0.11-0.59) K/uL Eos # (Auto) 0.15 (0-0.5) K/uL Baso # (Auto) 0.02 (0-0.2) K/uL Immature Gran # (Auto) 0.01 (0.00-0.02) K/uL Sodium 135 L (136-145) mmol/L Potassium 4.0 (3.5-5.1) mmol/L Chloride 103 (98-107) mmol/L Carbon Dioxide 26 (21-32) mmol/L Anion Gap 6.0 (3-11) BUN 21 H (7-18) mg/dl Creatinine 1.23 H (0.6-1.2) mg/dl Est Cr Clr Drug Dosing Not Reportable Est GFR ( Amer) 49.0 Est GFR (Non-Af Amer) 42.3 BUN/Creatinine Ratio 17.0 (10-20) Glucose 97 (70-99) mg/dl Calcium 9.9 (8.5-10.1) mg/dl Total Bilirubin 0.4 (0.2-1) mg/dl AST 14 L (15-37) U/L ALT 21 (12-78) U/L Alkaline Phosphatase 105 (45-117) U/L Troponin I < 0.015 (0-0.045) ng/ml NT-Pro-B Natriuret Pep (0-1800) pg/ml Total Protein 7.8 (6.4-8.2) gm/dl Albumin 3.4 (3.4-5.0) gm/dl Globulin 4.4 H (2.5-4.0) gm/dl Albumin/Globulin Ratio 0.8 L (0.9-2) Lipase 88 (73-393) U/L COVID-19 Eval Order CovFluRsv at [facility] SARS-CoV-2 (PCR) (Negative) Influenza Type A (PCR) (Neg) Influenza Type B (PCR) (Neg) RSV (RT-PCR) (Neg) 02/21/21 02/21/21 Range/Units 09:55 09:55 WBC (4.8-10.8) K/uL RBC (4.2-5.4) M/uL Hgb (12.0-16.0) g/dL Hct (37-47) % MCV (80-100) fL MCH (25-34) pg MCHC (32-36) g/dL RDW Std Deviation (36.4-46.3) fL RDW Coeff of Giorgi (11.5-14.5) % Plt Count (130-400) K/uL MPV (7.4-10.4) fL Immature Gran % (Auto) % Neut % (Auto) % Lymph % (Auto) % [place] % (Auto) % Eos % (Auto) % Baso % (Auto) % Neut # (Auto) (1.4-6.5) K/uL Lymph # (Auto) (1.2-3.4) K/uL [place] # (Auto) (0.11-0.59) K/uL Eos # (Auto) (0-0.5) K/uL Baso # (Auto) (0-0.2) K/uL Immature Gran # (Auto) (0.00-0.02) K/uL Sodium (136-145) mmol/L Potassium (3.5-5.1) mmol/L Chloride (98-107) mmol/L Carbon Dioxide (21-32) mmol/L Anion Gap (3-11) BUN (7-18) mg/dl Creatinine (0.6-1.2) mg/dl Est Cr Clr Drug Dosing Est GFR ( Amer) Est GFR (Non-Af Amer) BUN/Creatinine Ratio (10-20) Glucose (70-99) mg/dl Calcium (8.5-10.1) mg/dl Total Bilirubin (0.2-1) mg/dl AST (15-37) U/L ALT (12-78) U/L Alkaline Phosphatase (45-117) U/L Troponin I (0-0.045) ng/ml NT-Pro-B Natriuret Pep 2665 H (0-1800) pg/ml Total Protein (6.4-8.2) gm/dl Albumin (3.4-5.0) gm/dl Globulin (2.5-4.0) gm/dl Albumin/Globulin Ratio (0.9-2) Lipase (73-393) U/L COVID-19 Eval Order SARS-CoV-2 (PCR) NEGATIVE (Negative) Influenza Type A (PCR) Negative (Neg) Influenza Type B (PCR) Negative (Neg) RSV (RT-PCR) Negative (Neg) Administered Medications Discontinued Medications Albuterol (Albuterol 0.083% Nebu Soln 3 Ml Vial) 7.5 mg NEB NOW STA Stop: 02/21/21 09:40 Last Admin: 02/21/21 10:09 Dose: 7.5 mg Documented by: [id number] Furosemide (Furosemide 40 Mg/4 Ml Vial) 40 mg IV NOW STA Stop: 02/21/21 11:09 Last Admin: 02/21/21 11:17 Dose: 40 mg Documented by: [id number] Sodium Chloride (Nss) 500 mls @ 999 mls/hr IV .Q31M STA Stop: 02/21/21 10:09 Last Infusion: 02/21/21 10:41 Dose: 999 mls/hr Documented by: [id number] Admin: 02/21/21 09:56 Dose: 999 mls/hr Documented by: [id number] Methylprednisolone (Methylprednisolone 125 Mg/2 Ml Vial) 60 mg IV NOW STA Stop: 02/21/21 09:40 Last Admin: 02/21/21 09:55 Dose: 60 mg Documented by: [id number] Imaging Data Radiologist's Impression: Chest X-Ray 02/21/21 09:39 XR chest 1V portable HISTORY: Atypical chest pain. Cough. COMPARISON: Chest 2 cm 5 cm 19. FINDINGS: Cardiac silhouette is mildly enlarged. This has progressed. There is perihilar interstitial/vascular thickening suggestive of pulmonary edema. Hazy perihilar airspace opacities likely represent a component of congestive change. A superimposed pneumonia cannot be excluded. No pleural effusions. No pneumothorax. A right shoulder prosthesis is again noted. IMPRESSION: Cardiomegaly with mild to moderate interstitial pulmonary edema which has progressed in the interval. Hazy perihilar airspace opacities likely representing a component of the congestive change. A superimposed pneumonia cannot be excluded. ACT 112: Negative or not required by law. Electronically signed by: Juan Martinez M.D. 02/21/2021 10:34 AM Discharge Plan Visit Data Chief Complaint: Asthma Stated Complaint: ASTHMA EXACERBATION ED Provider: Charles Cervantes Discharge Problem: CHF (congestive heart failure), Hypertension, A-fib Patient Disposition: Admitted As Inpatient Discharge Instructions Interventions: ED Discharge Assessment Last Done: 02/21/21 14:04 Discharge Problem: CHF (congestive heart failure) Qualifiers: Heart failure type: unspecified Heart failure chronicity: unspecified Qualified Code(s): I50.9 - Heart failure, unspecified Hypertension Qualifiers: Hypertension type: unspecified Qualified Code(s): I10 - Essential (primary) hypertension A-fib Qualifiers: Atrial fibrillation type: unspecified Qualified Code(s): I48.91 - Unspecified atrial fibrillation
[2021-02-21 10:08] LABS: Basophils # (auto) 0.02 K/uL (0-0.2); Basophils % (auto) 0.4 %; Eosinophils # (auto) 0.15 K/uL (0-0.5); Hematocrit (blood only) 33.1 % (37-47); Hemoglobin 10.9 g/dL (12.0-16.0); Immature Granulocytes # (auto) 0.01 K/uL (0.00-0.02); Immature Granulocytes % (auto) 0.2 %; Lymphocytes # (auto) 0.99 K/uL (1.2-3.4); Lymphocytes % (auto) 19.6 %; Mean Corpuscular Hemoglobin 30.3 pg (25-34); Mean Corpuscular Hgb Conc 32.9 g/dL (32-36); Mean Corpuscular Volume 91.9 fL (80-100); Mean Platelet Volume 8.9 fL (7.4-10.4); Monocytes # (auto) 0.63 K/uL (0.11-0.59); Monocytes % (auto) 12.5 %; Neutrophils # (auto) 3.24 K/uL (1.4-6.5); Neutrophils % (auto) 64.3 %; Platelet Count 285 K/uL (130-400); RDW Coefficient of Variation 13.2 % (11.5-14.5); RDW Standard Deviation 44.7 fL (36.4-46.3); White Blood Count 5.04 K/uL (4.8-10.8)
[2021-02-21 10:27] LABS: Albumin Level 3.4 gm/dl (3.4-5.0); Aspartate Aminotransferase 14 U/L (15-37); Blood Urea Nitrogen 21 mg/dl (7-18); Calcium 9.9 mg/dl (8.5-10.1); Carbon Dioxide 26 mmol/L (21-32); Chloride 103 mmol/L (98-107); Est GFR (Non-African American) 42.3; Glucose 97 mg/dl (70-99); Lipase 88 U/L (73-393); Sodium 135 mmol/L (136-145)
[2021-02-21 10:31] LABS: Alanine Aminotransferase 21 U/L (12-78); Albumin Globulin Ratio 0.8 (0.9-2); Alkaline Phosphatase 105 U/L (45-117); Bilirubin,Total 0.4 mg/dl (0.2-1); Globulin 4.4 gm/dl (2.5-4.0); Total Protein 7.8 gm/dl (6.4-8.2); Troponin I < 0.015 ng/ml (0-0.045)
--- NOTE | 2021-02-21 10:35 | XRay Report ---
XR chest 1V portable HISTORY: Atypical chest pain. Cough. COMPARISON: Chest 2 cm 5 cm 19. FINDINGS: Cardiac silhouette is mildly enlarged. This has progressed. There is perihilar interstitial /vascular thickening suggestive of pulmonary edema. Hazy perihilar airspace opacities likely represen t a component of congestive change. A superimposed pneumonia cannot be excluded. No pleural effusions . No pneumothorax. A right shoulder prosthesis is again noted. IMPRESSION: Cardiomegaly with mild to moderate interstitial pulmonary edema which has progressed in the interval. Hazy perihilar airspace opacities likely representing a component of the congestive change. A superi mposed pneumonia cannot be excluded. ACT 112: Negative or not required by law. Electronically signed by: Juan Martinez M.D. 02/21/2021 10:34 AM
[2021-02-21 11:00] LABS: Influenza A virus by PCR Negative (Neg); Influenza B virus by PCR Negative (Neg); RSV by PCR Negative (Neg); SARS CoV2 RNA(COVID-19) InHosp NEGATIVE (Negative)
[2021-02-21] MEDS ORDERED: FUROSEMIDE 40 MG/4 ML VIAL IV STA (11:08)
[2021-02-21] MEDS ORDERED: POLYETHYLENE (MIRALAX) 17 GM PACK PO PRN (11:59)
[2021-02-21] MEDS ORDERED: ACETAMINOPHEN 325 MG TAB PO PRN (11:59)
--- NOTE | 2021-02-21 15:24 | Electrocardiogram Report ---
Test Reason : Blood Pressure : / mmHG Vent. Rate : 080 BPM Atrial Rate : 098 BPM P-R Int : 000 ms QRS Dur : 086 ms QT Int : 386 ms P-R-T Axes : 000 -49 014 degrees QTc Int : 445 ms Poor data quality, interpretation may be adversely affected Atrial fibrillation Left axis deviation Low voltage QRS Abnormal ECG When compared with ECG of 08-DEC-2018 11:03, Atrial fibrillation has replaced Sinus rhythm Confirmed by Clement Kellogg ([id number]) on 02/21/2021 3:24:12 PM Referred By: REFERRED SELF Confirmed By:Momo Kellogg
[2021-02-21] MEDS: FUROSEMIDE 40 MG in SYRINGE 0 ML IV SCH (17:05)
[2021-02-21] MEDS: POTASSIUM CHLORIDE CRTAB 20 MEQ TABCR PO SCH (17:05)
--- NOTE | 2021-02-21 17:18 | Cardiology Consultation ---
Date of Consultation February 21, 2021 Assessment & Plan (1) CHF (congestive heart failure): She appears to have an element of pulmonary vascular congestion. This could be multifactorial. She has an element of chronic renal insufficiency. Dyspnea could also be exacerbated by her chronic anemia. We do not have an assessment of her overall LV systolic function. However, it would be reasonable to attempt a diuresis. She was administered Lasix in the emergency room with CC of another dose here in the ICU. We can monitor her clinical response, electrolytes and renal function. Will obtain an echocardiogram tomorrow. She has been advised to follow a low-sodium diet. No evidence of recent infarct. She does have a sense of chest heaviness at times. However, this is common with pulmonary vascular congestion and a primary lung disease. (2) A-fib: Not previously documented. Unclear duration. However, since her symptoms of dyspnea seemed to worsen over the past few days the suspect she transition to atrial fibrillation around that time. This may be the precipitant for her sudden decline. Overall rate control appears adequate likely reflects some underlying conduction disease as well as baseline use of diltiazem. She has significant risk factors for stroke and will be advised to initiate systemic anticoagulation. I think she would be best suited to Eliquis 5 mg twice daily. (3) Anemia: (4) Hypertension: She reports controlled blood pressures at home. However, here in the hospital her blood pressure has been significantly elevated. It is possible that more elevated blood pressures recently have triggered some pulmonary congestion as well. Again, she does not seem to follow a low-sodium diet but will be advised to. She may be better served with a loop diuretic rather than hydrochlorothiazide given her presentation. Periodic administration of hydralazine our institution of alpha blockade if her blood pressures remain high may be required. History of Present Illness Reason for Consultation: Dyspnea, atrial fibrillation Requesting Physician: Ciera Attending Physician: Gaudencio Vang History of Present Illness Patient is a 76-year-old woman without a known history of cardiac disease who presented to the emergency room for symptoms of worsening dyspnea. Seems that the patient has an element of chronic lung disease and dyspnea. This appears to wax and wane in severity. However, since Friday she appears to have had progressive worsening in her typical dyspnea to the point that last night she had difficulty sleeping if she was awakening quite frequently with breathing trouble. She has used her inhalers more than usual. She states that this provides only transient relief from her breathing difficulty. At rest she seems relatively comfortable, but he states that with any activity she becomes severely short of breath. She does have a sense of chest heaviness. This appears to be relatively infrequent and fairly chronic in nature. Not worse recently. She denies dizziness or lightheadedness. She has not had any symptoms of palpitations. She does have a cough that seems to be worse when lying down at nighttime, but no associated fevers or chills. She seems to think that her legs legs are somewhat swollen. She did not notice edema at other sites. She takes her blood pressure at home fairly frequently. She has not been aware of any heart rate readings at home. She weighs herself infrequently but states that generally she is 200 lb. She does not follow low-sodium diet. Allergies Allergy/AdvReac Type Severity Reaction Status Date / Time oxycodone [From OxyContin] Allergy Mild itchy Verified 02/21/21 11:30 Home Medications Medication Instructions Recorded Confirmed Type Glucosamine Complex-MSM 2 tab PO BID 12/01/18 02/21/21 History cholecalciferol (vitamin D3) 2,000 unit PO QAM 05/11/19 02/21/21 History [Vitamin D3] albuterol sulfate 90 mcg/actuation 2 puff INHALATION Q6H PRN #6.7 gm 01/03/20 02/21/21 Rx aerosol inhaler diclofenac sodium 1 % topical gel 2 g TOPICAL QID #100 g 07/31/20 02/21/21 Rx mometasone-formoterol HFA 200 2 puff INHALATION Q12H #13 gm 11/23/20 02/21/21 Rx mcg-5 mcg/actuation aerosol inhaler ipratropium 0.5 mg-albuterol 3 mg See Rx Instructions .ROUTE 12/01/20 02/21/21 Rx (2.5 mg base)/3 mL nebulization .COMPLEX #360 milliliter soln simvastatin 20 mg tablet 20 mg PO QPM #90 tab 01/04/21 02/21/21 Rx omeprazole 20 mg capsule,delayed See Rx Instructions .ROUTE 02/12/21 02/21/21 Rx release .COMPLEX #180 capsule diltiazem HCl 240 mg PO QAM 02/21/21 02/21/21 History hydrochlorothiazide 25 mg PO QAM 02/21/21 02/21/21 History montelukast 10 mg PO QAM 02/21/21 02/21/21 History multivitamin 1 tab PO QAM 02/21/21 02/21/21 History Patient History Medical History Asthma Dulera, uses neb at least a few times per week. Rarely uses albuterol HFA. Cellulitis of left lower leg Chronic cough CKD (chronic kidney disease) Follows with Dr Mackenzie Diverticular disease GERD (gastroesophageal reflux disease) Hypertension Interstitial nephritis Lumbar radiculopathy Lymphedema Obesity Osteoarthritis Varicose veins of lower extremity with inflammation Surgical History H/O tubal ligation History of colonoscopy History of esophagogastroduodenoscopy (EGD) History of open reduction and internal fixation (ORIF) procedure LEFT WRIST--hardware in place History of tooth extraction all teeth History of total right knee replacement (TKR) 01/2019 [facility] History of total shoulder replacement RIGHT 05/08/18: Gonzalez #2, ETT #7.5, Grade 1 View S/P total knee arthroplasty Left- done 07/23/[address] Tracey Family History Sister Breast cancer Other Family history not known due to adoption Denies family history of Ovarian cancer Prostate cancer Myocardial infarction Colorectal cancer Social History Smoking Status: Never smoker Second Hand Exposure: Yes (FATHER SMOKED); Hx Alcohol Use: Yes Alcohol type: wine Alcohol Intake Frequency: Monthly or Less Hx Substance Use: No Preferred Language: Maori Communication Ability: Effective Visual Impairment: No Limitations Ship Purser Required: No Beliefs That Will Affect Care: None marital status: Current Living Situation: Spouse current occupational status: retired Other Information That Helps Us Care for You: No Feels Safe at Home: Yes caffeine: Yes Dental Care, Regularly: No Physical Activity Frequency: Other Physical Activity Frequency Comment: Occasional exercise Seatbelt Use: always Sunscreen Use: Yes Assistive Devices: Glasses Review of Systems Review of Systems: All systems reviewed & are unremarkable except as noted in HPI & below Physical Exam Physical Exam: She is alert and oriented x3. Mood affect appear normal. She answered all questions appropriately. Obese HEENT: Sclerae are anicteric. Pupils are equal and reactive to light and accommodation. Extraocular movements were intact. Neuro: Cranial nerves intact Neck: Examination of the submandibular region did not reveal any significant lymphadenopathy. Carotids are palpable bilaterally and free of bruits on auscultation. There was no evidence of jugular venous distention. The thyroid was not enlarged. Lungs: Some congestion bilaterally. No expiratory wheezing. Somewhat prolonged expiratory phase but normal respiratory effort. Cardiac: The rhythm was irregular. S1 and S2 were normal. There are no murmurs on examination. The PMI was not markedly displaced on palpation. Abdomen: The abdomen was soft and nontender. Extremities: Patient has bilateral radial pulses that are equal in intensity. There is no evidence cyanosis or clubbing. Mild lower extremity edema bilaterally. Skin: There are no rashes noted on examination today. Results & Data ([facility]) Vital Signs (Past 12 Hours) Vital Signs Temp Pulse Pulse Resp BP BP BP 02/21/21 16:20 36.6 C 76 22 182/69 H 02/21/21 16:00 02/21/21 15:11 36.6 C 80 24 172/78 H 02/21/21 14:00 73 25 H 176/88 H 02/21/21 13:30 72 25 H 156/78 H 02/21/21 13:00 171/65 H 02/21/21 12:30 83 26 H 178/77 H 02/21/21 12:00 83 17 172/93 H 02/21/21 11:32 82 33 H 169/99 H 02/21/21 11:20 89 24 02/21/21 11:15 81 22 02/21/21 11:10 83 24 02/21/21 11:01 83 26 H 02/21/21 11:00 83 27 H 02/21/21 10:50 82 18 02/21/21 10:40 82 24 02/21/21 10:39 85 18 189/135 H 02/21/21 10:32 79 19 189/135 H 02/21/21 10:30 84 20 02/21/21 10:20 77 24 02/21/21 10:14 80 21 02/21/21 10:09 81 16 02/21/21 10:03 18 02/21/21 10:00 83 19 176/118 H 02/21/21 09:28 36.2 C L 89 26 H 209/183 H Pulse Ox Pulse Ox 02/21/21 16:20 96 02/21/21 16:00 96 02/21/21 15:11 97 02/21/21 14:00 91 02/21/21 13:30 02/21/21 13:00 93 02/21/21 12:30 87 L 02/21/21 12:00 95 02/21/21 11:32 97 02/21/21 11:20 96 02/21/21 11:15 93 02/21/21 11:10 97 02/21/21 11:01 97 02/21/21 11:00 96 02/21/21 10:50 98 02/21/21 10:40 99 02/21/21 10:39 100 02/21/21 10:32 100 02/21/21 10:30 100 02/21/21 10:20 100 02/21/21 10:14 100 02/21/21 10:09 97 02/21/21 10:03 02/21/21 10:00 100 02/21/21 09:28 96 Laboratory Results Abnormal Lab Results 02/21/21 02/21/21 02/21/21 09:55 09:55 09:55 WBC 5.04 RBC 3.60 L Hgb 10.9 L Hct 33.1 L MCV 91.9 MCH 30.3 MCHC 32.9 RDW Std Deviation 44.7 RDW Coeff of Giorgi 13.2 Plt Count 285 MPV 8.9 Immature Gran % (Auto) 0.2 Neut % (Auto) 64.3 Lymph % (Auto) 19.6 Dickenson % (Auto) 12.5 Eos % (Auto) 3.0 Baso % (Auto) 0.4 Neut # (Auto) 3.24 Lymph # (Auto) 0.99 L Dickenson # (Auto) 0.63 H Eos # (Auto) 0.15 Baso # (Auto) 0.02 Immature Gran # (Auto) 0.01 Sodium 135 L Potassium 4.0 Chloride 103 Carbon Dioxide 26 Anion Gap 6.0 BUN 21 H Creatinine 1.23 H Est Cr Clr Drug Dosing Not Reportable Est GFR ( Amer) 49.0 Est GFR (Non-Af Amer) 42.3 BUN/Creatinine Ratio 17.0 Glucose 97 Calcium 9.9 Total Bilirubin 0.4 AST 14 L ALT 21 Alkaline Phosphatase 105 Troponin I < 0.015 NT-Pro-B Natriuret Pep Total Protein 7.8 Albumin 3.4 Globulin 4.4 H Albumin/Globulin Ratio 0.8 L Lipase 88 COVID-19 Eval Order CovFluRsv at [facility] SARS-CoV-2 (PCR) Influenza Type A (PCR) Influenza Type B (PCR) RSV (RT-PCR) 02/21/21 02/21/21 09:55 09:55 WBC RBC Hgb Hct MCV MCH MCHC RDW Std Deviation RDW Coeff of Giorgi Plt Count MPV Immature Gran % (Auto) Neut % (Auto) Lymph % (Auto) Dickenson % (Auto) Eos % (Auto) Baso % (Auto) Neut # (Auto) Lymph # (Auto) Dickenson # (Auto) Eos # (Auto) Baso # (Auto) Immature Gran # (Auto) Sodium Potassium Chloride Carbon Dioxide Anion Gap BUN Creatinine Est Cr Clr Drug Dosing Est GFR ( Amer) Est GFR (Non-Af Amer) BUN/Creatinine Ratio Glucose Calcium Total Bilirubin AST ALT Alkaline Phosphatase Troponin I NT-Pro-B Natriuret Pep 2665 H Total Protein Albumin Globulin Albumin/Globulin Ratio Lipase COVID-19 Eval Order SARS-CoV-2 (PCR) NEGATIVE Influenza Type A (PCR) Negative Influenza Type B (PCR) Negative RSV (RT-PCR) Negative Diagnostic Findings Chest x-ray obtained at the time of admission revealed pulmonary vascular congestion PG Care Time/CCT Total # of Minutes Spent Total Time Spent with Patient: Total time spent is greater than 50% in coordination of care (as documented) at patient's floor/unit and/or counseling patient: Coding Level of Care Code 86910 Initial Inpt Care Lvl 3 Diagnoses CHF (congestive heart failure) I50.9 Heart failure chronicity: unspecified Heart failure type: unspecified A-fib I48.91 Atrial fibrillation type: unspecified Anemia D64.9 Hypertension I10 Hypertension type: unspecified (1) CHF (congestive heart failure) Heart failure chronicity: unspecified Heart failure type: unspecified Qualified Code(s): I50.9 - Heart failure, unspecified (2) A-fib Atrial fibrillation type: unspecified Qualified Code(s): I48.91 - Unspecified atrial fibrillation (3) Hypertension Hypertension type: unspecified Qualified Code(s): I10 - Essential (primary) hypertension
[2021-02-21] MEDS: SIMVASTATIN 20 MG TAB PO SCH (20:27)
[2021-02-21] MEDS ORDERED: BENZONATATE 100 MG CAPSULE PO PRN (22:47)
[2021-02-22 05:38] LABS: BUN Creatinine Ratio 19.1 (10-20); Creatinine Clr Calc Pharmacy 40.5 ml/min; Est GFR (Non-African American) 38.8; Potassium 4.2 mmol/L (3.5-5.1)
[2021-02-22 05:49] LABS: Thyroid Stimulating Hormone 0.655 uIu/ml (0.300-4.500)
--- NOTE | 2021-02-22 06:24 | History & Physical Report ---
Date of Service February 21, 2021 Assessment & Plan (1) CHF (congestive heart failure): Will admit for possible CHF vs lung disease /CKD BNP is elevated will continue to diurese today , obtain ECHO and re-eval (2) A-fib: currently rate controlled. will monitor likely will need anticoagulation (3) Tremor: stable will monitor (4) Hypertension: B/P elevated, likely playing a role. continue to diurese. (5) Asthma: will continue home meds will monitor (6) CKD (chronic kidney disease): CKD stage III is 1.22 will monitor Admission and Anticipated Discharge Date Admission Date: February 21, 2021 History of Present Illness Chief Complaint: SOB on exertion Primary Care Provider: Sherley Jeffrey MD This is a pleasant 76 yo woman who comes into the hospital with worsening SOB on exertion. Patient reports feeling well Friday, but on Friday, patient was having difficulty ambulating. This SOB gradually worsened to the point where patient was SOB at rest. Difficult to evaluate if she has orthopnea as she has used multiple pillows to sleep prior to dyspnea. She denies dizziness or lightheadedness. She has not had any symptoms of palpitations. Her legs are more swollen. Allergies Allergy/AdvReac Type Severity Reaction Status Date / Time oxycodone [From OxyContin] Allergy Mild itchy Verified 02/21/21 11:30 Home Medications Medication Instructions Recorded Confirmed Type Glucosamine Complex-MSM 2 tab PO BID 12/01/18 02/21/21 History cholecalciferol (vitamin D3) 2,000 unit PO QAM 05/11/19 02/21/21 History [Vitamin D3] albuterol sulfate 90 mcg/actuation 2 puff INHALATION Q6H PRN #6.7 gm 01/03/20 02/21/21 Rx aerosol inhaler diclofenac sodium 1 % topical gel 2 g TOPICAL QID #100 g 07/31/20 02/21/21 Rx mometasone-formoterol HFA 200 2 puff INHALATION Q12H #13 gm 11/23/20 02/21/21 Rx mcg-5 mcg/actuation aerosol inhaler ipratropium 0.5 mg-albuterol 3 mg See Rx Instructions .ROUTE 12/01/20 02/21/21 Rx (2.5 mg base)/3 mL nebulization .COMPLEX #360 milliliter soln simvastatin 20 mg tablet 20 mg PO QPM #90 tab 01/04/21 02/21/21 Rx omeprazole 20 mg capsule,delayed See Rx Instructions .ROUTE 02/12/21 02/21/21 Rx release .COMPLEX #180 capsule diltiazem HCl 240 mg PO QAM 02/21/21 02/21/21 History hydrochlorothiazide 25 mg PO QAM 02/21/21 02/21/21 History montelukast 10 mg PO QAM 02/21/21 02/21/21 History multivitamin 1 tab PO QAM 02/21/21 02/21/21 History Past Med/Surg History Medical History Asthma Dulera, uses neb at least a few times per week. Rarely uses albuterol HFA. Cellulitis of left lower leg Chronic cough CKD (chronic kidney disease) Follows with Dr Mackenzie Diverticular disease GERD (gastroesophageal reflux disease) Hypertension Interstitial nephritis Lumbar radiculopathy Lymphedema Obesity Osteoarthritis Varicose veins of lower extremity with inflammation Surgical History H/O tubal ligation History of colonoscopy History of esophagogastroduodenoscopy (EGD) History of open reduction and internal fixation (ORIF) procedure LEFT WRIST--hardware in place History of tooth extraction all teeth History of total right knee replacement (TKR) 01/2019 [facility] History of total shoulder replacement RIGHT 05/08/18: Gonzalez #2, ETT #7.5, Grade 1 View S/P total knee arthroplasty Left- done 07/23/[address] Tracey Family History Sister Breast cancer Other Family history not known due to adoption Denies family history of Ovarian cancer Prostate cancer Myocardial infarction Colorectal cancer Social History Smoking Status: Never smoker Second Hand Exposure: Yes (FATHER SMOKED); Hx Alcohol Use: Yes Alcohol type: wine Alcohol Intake Frequency: Monthly or Less Hx Substance Use: No Preferred Language: Kinyarwanda Communication Ability: Effective Visual Impairment: No Limitations Collaborating Supervising Physician Required: No Beliefs That Will Affect Care: None marital status: Current Living Situation: Spouse current occupational status: retired Other Information That Helps Us Care for You: No Feels Safe at Home: Yes caffeine: Yes Dental Care, Regularly: No Physical Activity Frequency: Other Physical Activity Frequency Comment: Occasional exercise Seatbelt Use: always Sunscreen Use: Yes Assistive Devices: Glasses Review of Systems Review of Systems: All systems reviewed & are unremarkable except as noted in HPI & below Physical Exam Constitutional: WD/WN, vitals as above Eyes: PERRL, conjunctivae normal, anicteric sclerae ENMT: external ear and nose normal, oropharynx normal Neck: trachea midline, no thyromegaly due to obesity, unable to eval JVD Respiratory: bibasilar rales Cardiovascular: Rate/Rhythm: + irregularly irregular Extremities: + pedal edema Skin: no rashes, warm and dry Psychiatric: A+Ox3, euthymic affect Lymphatic: no cervical or axillary lymphadenopathy Results & Data Results & Data ([facility]) Vital Signs (Past 12 Hours) Vital Signs Temp Pulse Resp BP Pulse Ox Pulse Ox 02/22/21 03:38 36.7 C 02/22/21 03:37 78 15 138/79 94 02/21/21 23:24 73 21 153/82 H 96 02/21/21 23:20 93 02/21/21 23:16 36.7 C 02/21/21 20:00 36.5 C 02/21/21 19:13 73 20 139/94 95 PG Care Time/CCT Total # of Minutes Spent Total Time Spent with Patient: Total time spent is greater than 50% in coordination of care (as documented) at patient's floor/unit and/or counseling patient: Coding Level of Care Code 51244 Initial Inpt Care Lvl 2 Diagnoses CHF (congestive heart failure) I50.9 Heart failure chronicity: unspecified Heart failure type: unspecified A-fib I48.91 Atrial fibrillation type: unspecified Tremor R25.1 Hypertension I10 Hypertension type: unspecified Asthma J45.909 CKD (chronic kidney disease) N18.9 (1) CHF (congestive heart failure) Heart failure chronicity: unspecified Heart failure type: unspecified Qualified Code(s): I50.9 - Heart failure, unspecified (2) A-fib Atrial fibrillation type: unspecified Qualified Code(s): I48.91 - Unspecified atrial fibrillation (3) Hypertension Hypertension type: unspecified Qualified Code(s): I10 - Essential (primary) hypertension
--- NOTE | 2021-02-22 07:56 | Hospitalist Progress Note ---
Date of Service February 22, 2021 Assessment & Plan (1) CHF (congestive heart failure): Will admit for possible CHF cardiology has seen and feels reasonable to diurese, echo shows preserved ejection fraction likely acute on chronic diastolic heart failure or heart failure preserved ejection fraction BNP is elevated (2) A-fib: currently rate controlled. apixiban for AC rate controlled with diltiazem diltiazem dose increased on 02/22/2021 for blood pressure control (3) Tremor: stable will monitor (4) Hypertension: B/P elevated, likely playing a role. Currently poorly controlled cardiology increasing diltiazem on 02/22/2021 continue to diurese. Transition from hydrochlorothiazide to Lasix at time of discharge (5) Asthma: will continue home meds will monitor (6) CKD (chronic kidney disease): CKD stage III is 1.22 will monitor Admission and Anticipated Discharge Date Admission Date: February 21, 2021 Subjective This morning patient states she is feeling somewhat better, she is laying flat, heart rate is controlled. She states that her breathing is improved. No sense of palpitations or arrhythmia. She was able ambulate in the room Review of Systems Review of Systems: Mild distress and fatigue no headache, blurry or double vision no speech or swallowing issues no chest pain, pressure or palpitations no shortness of breath, cough or wheezes no abdominal pain, nausea or vomiting, diarrhea or constipation no dysuria, hematuria or frequency no focal joint pain or swelling no back pain, CVA tenderness or radicular pain no bruising, bleeding or rashes no focal signs of weakness or numbness or altered sensation no complaints of anxiety or depression.. Physical Exam Physical Exam: The patient appeared well nourished and normally developed. Vital signs as documented. Head exam is normocephalic atraumatic no scleral icterus Neck is without JVD, thyromegaly, or carotid bruits. Lungs are clear to auscultation, no focal loss of breath sounds Cardiac exam, irregularly irregular. No murmurs, rubs or gallops. Abdominal exam reveals normal bowel sounds, soft non tender, no masses Extremities are nonedematous and both pedal pulses are present Neurologic exam is alert and oriented, no focal loss of strength or sensation Skin is without bruises or rashes Psychologically is without concerns for anxiety or depression Results & Data Results & Data ([facility]) Vital Signs (Past 12 Hours) Vital Signs Temp Pulse Resp BP Pulse Ox Pulse Ox 02/22/21 03:38 98.1 F 02/22/21 03:37 78 15 138/79 94 02/21/21 23:24 73 21 153/82 H 96 02/21/21 23:20 93 02/21/21 23:16 98.1 F 02/21/21 20:00 97.7 F PG Care Time/CCT Total # of Minutes Spent Total Time Spent with Patient: Total time spent is greater than 50% in coordination of care (as documented) at patient's floor/unit and/or counseling patient: Coding Level of Care Code 93081 Subseq Hosp Care Lvl 2 Diagnoses CHF (congestive heart failure) I50.9 Heart failure chronicity: unspecified Heart failure type: unspecified A-fib I48.91 Atrial fibrillation type: unspecified Tremor R25.1 Hypertension I10 Hypertension type: unspecified Asthma J45.909 CKD (chronic kidney disease) N18.9 (1) CHF (congestive heart failure) Heart failure chronicity: unspecified Heart failure type: unspecified Qualified Code(s): I50.9 - Heart failure, unspecified (2) A-fib Atrial fibrillation type: unspecified Qualified Code(s): I48.91 - Unspecified atrial fibrillation (3) Hypertension Hypertension type: unspecified Qualified Code(s): I10 - Essential (primary) hypertension
[2021-02-22] MEDS: MULTIVITAMIN TAB PO SCH (08:22)
[2021-02-22] MEDS: MONTELUKAST SODIUM 10 MG TABLET PO SCH (08:22)
[2021-02-22] MEDS: FUROSEMIDE 40 MG in SYRINGE 0 ML IV SCH ×2 (08:22→15:36)
[2021-02-22] MEDS: FLUTICASONE/VILANTEROL 200/25MCG 14 PUFFS/INHALER INH SCH (08:22)
[2021-02-22] MEDS: POTASSIUM CHLORIDE CRTAB 20 MEQ TABCR PO SCH ×2 (08:22→15:36)
[2021-02-22] MEDS: CHOLECALCIFEROL 1,000 UNITS 25 MCG TAB PO SCH (08:22)
[2021-02-22] MEDS: APIXABAN 5 MG TABLET PO SCH ×2 (08:22→21:02)
[2021-02-22] MEDS ORDERED: dilTIAZem ER 120 MG CAPCR PO SCH (09:00)
[2021-02-22] MEDS ORDERED: ASPIRIN 81 MG ECTAB PO SCH (09:00)
--- NOTE | 2021-02-22 09:40 | XCELERA ---
[id number]
--- NOTE | 2021-02-22 11:36 | Cardiology Progress Note ---
Date of Service February 22, 2021 Assessment & Plan (1) CHF (congestive heart failure): Symptoms are improved. She had a nice diuresis yesterday. Renal function appears relatively stable. I think continuing her current dose of Lasix is reasonable. We will need to monitor her electrolytes and renal function. The etiology of her pulmonary congestion is likely an element of diastolic dysfunction with a transition to atrial fibrillation recently. She also appears to follow a fairly high sodium diet. I think at the time of discharge we can discontinue her hydrochlorothiazide and perhaps substitute Lasix 20 mg daily. (2) A-fib: No symptoms. Adequate rate control. Started on apixaban. I think we can stop her aspirin. (3) Anemia: (4) Hypertension: She reports controlled blood pressures at home. However, her blood pressures been elevated here in the hospital. If they have been less well controlled recently could have contributed to her decompensation. I ordered her an extra dose of short-acting diltiazem. If she continues to have high blood pressures we could increase her diltiazem at the time of discharge. Admission and Anticipated Discharge Date Admission Date: February 21, 2021 Subjective This morning patient claims to be feeling somewhat better. She states that her breathing is improved. No sense of palpitations or arrhythmia. She was able ambulate to the commode and back. Review of Systems Review of Systems: Per HPI Physical Exam Physical Exam: She is alert and oriented x3. Mood affect appear normal. She answered all questions appropriately. HEENT: Sclerae are anicteric. Pupils are equal and reactive to light and accommodation. Extraocular movements were intact. Neuro: Cranial nerves intact Lungs: Some mild pulmonary congestion on examination. Normal respiratory effort. No expiratory wheezing. Cardiac: The rhythm was irregular. S1 and S2 were normal. There are no murmurs on examination. The PMI was not markedly displaced on palpation. Abdomen: The abdomen was soft and nontender. Extremities: Patient has bilateral radial pulses that are equal in intensity. There is no evidence cyanosis or clubbing. There was no evidence of significant peripheral edema bilaterally. Skin: There are no rashes noted on examination today. Results & Data ([facility]) Vital Signs (Past 12 Hours) Vital Signs Temp Pulse Resp BP Pulse Ox 02/22/21 10:02 81 18 02/22/21 09:00 79 20 02/22/21 08:24 36.7 C 85 30 H 183/92 H 96 02/22/21 08:00 82 18 02/22/21 07:00 78 19 02/22/21 06:45 80 27 H 02/22/21 03:38 36.7 C 02/22/21 03:37 78 15 138/79 94 Laboratory Results Abnormal Lab Results 02/21/21 02/22/21 19:18 05:00 Sodium 135 L Potassium 4.2 Chloride 102 Carbon Dioxide 25 Anion Gap 8.0 BUN 25 H Creatinine 1.32 H Est Cr Clr Drug Dosing 40.5 Est GFR ( Amer) 45.0 Est GFR (Non-Af Amer) 38.8 BUN/Creatinine Ratio 19.1 Glucose 114 H Calcium 10.0 Triglycerides 53 Cholesterol 113 LDL Cholesterol, Calc 54 VLDL Cholesterol, Calc 11 HDL Cholesterol 48 Cholesterol/HDL Ratio 2 TSH 0.655 Nasal Screen MRSA (PCR) Negative Diagnostic Findings Echocardiogram performed this morning revealed preserved LV systolic function. Severe left atrial dilation. Mild to moderate mitral regurgitation. PG Care Time/CCT Total # of Minutes Spent Total Time Spent with Patient: Total time spent is greater than 50% in coordination of care (as documented) at patient's floor/unit and/or counseling patient: Coding Level of Care Code 05394 Subseq Hosp Care Lvl 2 Diagnoses CHF (congestive heart failure) I50.9 Heart failure chronicity: unspecified Heart failure type: unspecified A-fib I48.91 Atrial fibrillation type: unspecified Anemia D64.9 Hypertension I10 Hypertension type: unspecified (1) CHF (congestive heart failure) Heart failure chronicity: unspecified Heart failure type: unspecified Qualified Code(s): I50.9 - Heart failure, unspecified (2) A-fib Atrial fibrillation type: unspecified Qualified Code(s): I48.91 - Unspecified atrial fibrillation (3) Hypertension Hypertension type: unspecified Qualified Code(s): I10 - Essential (primary) hypertension
[2021-02-22] MEDS ORDERED: dilTIAZem HCL 30 MG TAB PO ONE (12:15)
[2021-02-22] MEDS: SIMVASTATIN 20 MG TAB PO SCH (21:02)
[2021-02-23 05:37] LABS: BUN Creatinine Ratio 26.5 (10-20); Calcium 10.1 mg/dl (8.5-10.1); Creatinine Clr Calc Pharmacy 35.2 ml/min; Est GFR (African American) 38.9; Est GFR (Non-African American) 33.5; Potassium 3.6 mmol/L (3.5-5.1)
[2021-02-23] MEDS: POTASSIUM CHLORIDE CRTAB 20 MEQ TABCR PO SCH (08:37)
[2021-02-23] MEDS: FLUTICASONE/VILANTEROL 200/25MCG 14 PUFFS/INHALER INH SCH (08:38)
[2021-02-23] MEDS: MONTELUKAST SODIUM 10 MG TABLET PO SCH (08:38)
[2021-02-23] MEDS: MULTIVITAMIN TAB PO SCH (08:38)
[2021-02-23] MEDS: APIXABAN 5 MG TABLET PO SCH (08:39)
[2021-02-23] MEDS: CHOLECALCIFEROL 1,000 UNITS 25 MCG TAB PO SCH (08:39)
[2021-02-23] MEDS ORDERED: dilTIAZem ER 120 MG CAPCR PO SCH (09:00)
[2021-02-23] MEDS ORDERED: dilTIAZem ER 180 MG CAPCR PO SCH (09:00)
--- NOTE | 2021-02-23 16:51 | Discharge Summary ---
Date of Service February 23, 2021 Admission HPI Per Admitting Provider This is a pleasant 76 yo woman who comes into the hospital with worsening SOB on exertion. Patient reports feeling well Friday, but on Friday, patient was having difficulty ambulating. This SOB gradually worsened to the point where patient was SOB at rest. Difficult to evaluate if she has orthopnea as she has used multiple pillows to sleep prior to dyspnea. She denies dizziness or lightheadedness. She has not had any symptoms of palpitations. Her legs are more swollen. Principal Diagnosis atrial fibrillation acute on chronic diastolic heart failure Discharge Exam The patient appeared well Vital signs as documented. Lungs are clear to auscultation and appear unlabored Cardiac exam, irregular but rate controlled systolic ejection murmur is heard Abdominal exam reveals normal bowel sounds, soft non tender, no masses Extremities are trace edematous bilaterally and both pedal pulses are normal. Neurologic exam is alert and oriented, no focal loss of strength or sensation Skin is without bruises or rashes Psychologically is without concerns for anxiety or depression. Discharge Data Allergies Allergy/AdvReac Type Severity Reaction Status Date / Time oxycodone [From OxyContin] Allergy Mild itchy Verified 02/21/21 11:30 Consultations 02/21/21 11:08 ED Decision to Admit Stat 02/21/21 12:19 Consult Cardiology Routine 02/21/21 12:23 [facility] [place] Routine Hospital Course (1) CHF (congestive heart failure): Acute on chronic diastolic heart failure exacerbated by atrial fibrillation. Echo shows preserved ejection fraction likely acute on chronic diastolic heart failure or heart failure preserved ejection fraction (2) A-fib: currently rate controlled. apixiban for AC rate controlled with diltiazem diltiazem dose increased to 300 mg a day on 02/22/2021 for blood pressure control Short-term follow-up with her family doctor with consideration of increasing to 360 (3) Tremor: stable will monitor (4) Hypertension: B/P elevated, likely playing a role. Currently poorly controlled cardiology increasing diltiazem on 02/22/2021 continue to diurese. Will send home on Lasix 20 mg a day and continue to hold her home hydrochlorothiazide (5) Asthma: will continue home meds (6) CKD (chronic kidney disease): CKD stage III is 1.22 Patient did a minor elevation of threatening subsequently diuresis was held on the day of 02/23 resuming with oral Lasix and 02/24 outpatient blood work will be checked next week Total Time Total Time Spent Total Time Spent (In Minutes): It required greater than 30 minutes to prepare this patient for discharge Discharge Plan Discharge Items Patient Disposition: Home - Self-Care Reason For Visit: CHF Discharge Diagnosis: atrial fibrillation, medication adjusted fluid retention , change of fluid medicine Activity: Per Instructions section Non-emergency contact: Primary Care Provider Call non-emergency contact if: your symptoms worsen and you have a fever Follow-up/Referrals: Mustapha Betancur MD [Physician] - Sherley Jeffrey MD [Primary Care Provider] - 03/01/21 10:30 am (Please follow up with Dr. Jeffrey on 03/01/21 at 10:30 am. Please arrive to the office at 10:15 am for your appointment. If you are unable to keep this appointment, please call the office to reschedule at [phone].) Diet: Low Sodium (2gm) Addtl Attending Provider Instructions: Please be sure to have a follow up with your family doctor next week Call 911 and go to the Emergency Room if: * You have tightness or pain in your chest that does not go away with rest or Nitroglycerin * You are very short of breath even with rest Call your doctor if any of the following symptoms or problems start or get worse: * Shortness of breath or difficulty breathing * Wake up at night short of breath * Chest pain * Cough * Swelling of your hands, fee, or legs * More fatigued or tired with your normal activity * Palpitations - sudden fast heart beats WEIGHT * Weigh yourself every morning after using the bathroom. * Use the same scale. * Wear the same amount of clothing. * Write your weight down on your chart. * Call your doctor if you gain more than 2-3 pounds in 1-2 days. MEDICATIONS * Use this discharge instruction sheet for instructions. * Take your medications at the time your doctor ordered. * Do not skip a dose of your medicines. * If you miss a dose of medicine, take as soon as possible, but DO NOT DOUBLE A DOSE. * Read your medicine information when you get home. * Know all of the side effects of your medicine. * Call your doctor's office if you have any side effects. * Be sure all of your doctors know what medicine and herbs you take (including cold, flu, and herbal medicine). * Pain Medicine: If you do not get relief from your pain, please call your doctor for help. Take the following with you to your follow-up doctor appointments: * Weight Chart * Medication List * List of questions Do not drink excessive alcohol, beer or wine. Pending Studies at Discharge: No Stand-Alone Forms: My [facility], Smoking Cessation Medications and DC Order Prescriptions: New Eliquis 5 mg Tablet 5 mg PO BID Qty: 60 RF: 5 diltiazem HCl 300 mg capsule,extended release 24hr 300 mg PO DAILY Qty: 30 RF: 5 furosemide [Lasix] 20 mg tablet 20 mg PO DAILY Qty: 30 RF: 5 Continued Dulera 200-5 mcg/actuation HFA aerosol inhaler 2 puff inhalation Q12H Qty: 13 RF: 5 ipratropium-albuterol 0.5 mg-3 mg(2.5 mg base)/3 mL solution for nebulization See Rx Instructions .ROUTE .COMPLEX Qty: 360 RF: 0 simvastatin 20 mg tablet 20 mg PO QPM Qty: 90 RF: 1 omeprazole 20 mg capsule,delayed release(DR/EC) See Rx Instructions .ROUTE .COMPLEX Qty: 180 RF: 1 albuterol sulfate 90 mcg/actuation HFA aerosol inhaler 2 puff INHALATION Q6H PRN (Reason: sob) Qty: 6.7 RF: 5 diclofenac sodium 1 % gel 2 g topical QID Qty: 100 RF: 5 Glucosamine Complex-MSM Capsule 2 tab PO BID RF: 0 cholecalciferol (vitamin D3) [Vitamin D3] 2,000 unit Tablet 2,000 unit PO QAM RF: 0 multivitamin Tablet 1 tab PO QAM RF: 0 montelukast 10 mg tablet 10 mg PO QAM RF: 0 Discontinued diltiazem HCl 240 mg capsule,extended release 24 hr 240 mg PO QAM RF: 0 hydrochlorothiazide 25 mg tablet 25 mg PO QAM RF: 0 Discharge Orders: Discharge Order (Routine); Ordered 02/23/21 Ordered By: Roberto Prince/Other Patient Handouts: Eating Heart-Healthy Foods Admission Data Admit Date/Time: 02/21/21 12:16 Attending Provider: Roberto Pavon Admit Provider: Gaudencio Vang Primary Care Provider: Sherley Jeffrey Other Providers: Gaudencio Vang ; Mustapha Betancur ; Gilda Lindsey Other Interventions: Discharge Summary Assessment (RN) Last Done: 02/23/21 10:36 Coding Level of Care Code D/C Day Management >30 mins Diagnoses CHF (congestive heart failure) I50.9 Heart failure chronicity: unspecified Heart failure type: unspecified A-fib I48.91 Atrial fibrillation type: unspecified Tremor R25.1 Hypertension I10 Hypertension type: unspecified Asthma J45.909 CKD (chronic kidney disease) N18.9
== END 2021-02-23 11:22 | disposition home or self-care (01) | DRG 291 ==
LOC: ED 09:25 → 2S 12:16 → SUATTDRO 12:16 → 2S 14:04 → 1E 15:57

== ENCOUNTER 2024-05-25 09:06 | Observation (INO) ==
--- NOTE | 2024-04-21 11:29 | PAT Medication Instructions ---
Medication Instructions Date of Service April 21, 2024 Home Medications Medication Instructions Recorded albuterol sulfate 90 mcg/actuation 2 puff inhalation Q6H PRN sob #6.7 01/03/20 aerosol inhaler grams diclofenac sodium 1 % topical gel 2 g topical QID PRN pain #100 grams 04/12/22 zoledronic acid 5 mg/100 mL in 5 ea IV ONCE #100 mL 04/12/22 mannitol 5 %-water intravenous piggybck (Reclast) cyclobenzaprine 10 mg tablet 10 mg PO HS PRN spasms #30 tabs 02/27/23 furosemide 40 mg tablet 40 mg PO BID #180 tabs 04/17/23 apixaban 5 mg tablet (Eliquis) 5 mg PO BID #180 tabs 11/25/23 simvastatin 20 mg tablet 20 mg PO QPM #90 tabs 12/24/23 metoprolol tartrate 25 mg tablet 25 mg PO BID #180 tabs 02/12/24 montelukast 10 mg tablet 10 mg PO QAM #90 tabs 02/12/24 gabapentin 300 mg capsule 300 mg PO BID 90 days #180 caps 03/09/24 mometasone-formoterol HFA 200 2 puff inhalation Q12H #39 grams 03/30/24 mcg-5 mcg/actuation aerosol inhaler (Dulera) prednisone 20 mg tablet See Rx Instructions PO .COMPLEX 04/02/24 #30 tabs amoxicillin 875 mg-potassium 1 tab PO Q12H #20 tabs 04/07/24 clavulanate 125 mg tablet [id number]-vitC capsule (Glucosamine Complex-MSM capsule) 1 tab PO QAM albuterol sulfate 90 mcg/actuation aerosol inhaler 2 puff inhalation Q6H PRN multivitamin 1 tab PO QAM diclofenac sodium 1 % topical gel 2 g topical QID PRN zoledronic acid 5 mg/100 mL in mannitol 5 %-water intravenous piggybck (Reclast) 5 ea IV ONCE cyclobenzaprine 10 mg tablet 10 mg PO HS PRN furosemide 40 mg tablet 40 mg PO BID apixaban 5 mg tablet (Eliquis) 5 mg PO BID simvastatin 20 mg tablet 20 mg PO QPM metoprolol tartrate 25 mg tablet 25 mg PO BID montelukast 10 mg tablet 10 mg PO QAM gabapentin 300 mg capsule 300 mg PO BID mometasone-formoterol HFA 200 mcg-5 mcg/actuation aerosol inhaler (Dulera) 2 puff inhalation Q12H prednisone 20 mg tablet See Rx Instructions PO .COMPLEX amoxicillin 875 mg-potassium clavulanate 125 mg tablet 1 tab PO Q12H cinacalcet 30 mg tablet (Sensipar) 30 mg PO QAM ipratropium 0.5 mg-albuterol 3 mg (2.5 mg base)/3 mL nebulization soln 3 ml inhalation QID PRN lidocaine 5 % topical patch 1 patch topical DAILY PRN omeprazole 40 mg capsule,delayed release 40 mg PO QAM ropinirole 0.25 mg tablet 0.25 mg PO UD vitamin A-vitamin C-vit E-min tablet 1 tab PO QAM Continue as directed prednisone 20 mg tablet See Rx Instructions PO .COMPLEX ropinirole 0.25 mg tablet 0.25 mg PO UD ASK your prescriber and surgeon zoledronic acid 5 mg/100 mL in mannitol 5 %-water intravenous piggybck (Reclast) 5 ea IV ONCE apixaban 5 mg tablet (Eliquis) 5 mg PO BID lidocaine 5 % topical patch 1 patch topical DAILY PRN STOP taking 2 weeks before surgery (or as soon as possible if surgery is within 2 weeks) [id number]-kns-vngdmymbc-vitC capsule (Glucosamine Complex-MSM capsule) 1 tab PO QAM vitamin A-vitamin C-vit E-min tablet 1 tab PO QAM STOP taking 24 hours before surgery diclofenac sodium 1 % topical gel 2 g topical QID PRN DO NOT take the morning of surgery multivitamin 1 tab PO QAM furosemide 40 mg tablet 40 mg PO BID cinacalcet 30 mg tablet (Sensipar) 30 mg PO QAM Take morning of surgery With a small sip of water, OTHERWISE NOTHING TO EAT OR DRINK AFTER MIDNIGHT: albuterol sulfate 90 mcg/actuation aerosol inhaler 2 puff inhalation Q6H PRN(use if needed; please bring with you to hospital day of surgery if possible) ipratropium 0.5 mg-albuterol 3 mg (2.5 mg base)/3 mL nebulization soln 3 ml inhalation QID PRN(if needed) metoprolol tartrate 25 mg tablet 25 mg PO BID montelukast 10 mg tablet 10 mg PO QAM gabapentin 300 mg capsule 300 mg PO BID mometasone-formoterol HFA 200 mcg-5 mcg/actuation aerosol inhaler (Dulera) 2 puff inhalation Q12H amoxicillin 875 mg-potassium clavulanate 125 mg tablet 1 tab PO Q12H omeprazole 40 mg capsule,delayed release 40 mg PO QAM Take evening before surgery albuterol sulfate 90 mcg/actuation aerosol inhaler 2 puff inhalation Q6H PRN(if needed) cyclobenzaprine 10 mg tablet 10 mg PO HS PRN(if needed) ipratropium 0.5 mg-albuterol 3 mg (2.5 mg base)/3 mL nebulization soln 3 ml inhalation QID PRN(if needed) furosemide 40 mg tablet 40 mg PO BID simvastatin 20 mg tablet 20 mg PO QPM metoprolol tartrate 25 mg tablet 25 mg PO BID gabapentin 300 mg capsule 300 mg PO BID mometasone-formoterol HFA 200 mcg-5 mcg/actuation aerosol inhaler (Dulera) 2 puff inhalation Q12H amoxicillin 875 mg-potassium clavulanate 125 mg tablet 1 tab PO Q12H Other Notes If you have any questions please call us at [phone] or [phone] or [phone] or [phone]
--- NOTE | 2024-04-28 13:18 | Anesthesiology Consultation ---
Date of Service April 28, 2024 Assessment & Plan (1) Encounter for pre-operative examination: Chart Review Chart Review: Acceptable Risk for Surgery (pending surgeon ordered cardio clearance and PCP response to workload message regarding CXR results ) and Patient seen in Pre Admission Testing - Awaiting surgeon ordered cardio clearance ([facility]) (surgeon's office to schedule) - Awaiting workload note response from PCP ([facility]) regarding CXR Per PAT appt on 04/28/24, no recent illness/disease exposures, illness related symptoms, or recent illness/disease positive tests. Will leave to surgeon's discretion if preop Covid testing needed Patient seen by neuro 03/09/24= patient seen for follow up on RLS and tremor. Patient was seen by [facility] February 13, 2024 regarding a history of scoliosis of the lumbosacral region due to degenerative disc disease, lumbosacral radiculopathy, lumbar spinal stenosis. Recommendation was for lum bar laminectomy, L3-4 and L4-5. Patient with longstanding history of what sounds like periodic limb movement disorder.Does take Requip for this issue which has perhaps been modestly helpful.Would like to try stopping daytime dosage of Requip to see if low-grade chronic fatigue improves. Can continue with Requip 1 to 2 hours before bedtime. Continue gabapentin. She is planning on lumbar laminectomy in May with Dr. Byers. Has tremor both resting and action component, no intention tremor. 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 Nonethelessdid discuss possibility of Parkinson's disease with patient and spouse. Will continue to monitor. She is prescribed Eliquis and going forward would avoid trial of primidone for management of tremor. Already on metoprolol for cardiovascular indication. Follow-up in 6 months for reassessment. Teaching & Discussion Pre-Anesthesia Teaching/Discussion Notes: Instructed NPO after midnight before surgery,except medications with 15 cc of water. Medication instructions provi ded according to the PAT guidelines. History Surgery Operation Date: 05/24/24 07:00 Proposed Procedures p L3-4, L4-5 Lumbar Decompression - Getachew Byers MD Height/Weight Height: 5 ft 3 in Weight: 101.7 kg Allergies Allergy/AdvReac Type Severity Reaction Status Date / Time oxycodone [From OxyContin] Allergy Mild itchy Verified 04/15/24 07:32 Medications Home Medications Medication Instructions Recorded Confirmed Last Taken nzexvnogtsg-zdc-aibziwjkl-vitC 1 tab PO QAM 12/01/18 04/15/24 02/18/21 capsule (Glucosamine Complex-MSM capsule) albuterol sulfate 90 mcg/actuation 2 puff inhalation Q6H PRN sob #6.7 01/03/20 04/15/24 02/21/21 02:00 aerosol inhaler grams multivitamin 1 tab PO QAM 02/21/21 04/15/24 02/21/21 diclofenac sodium 1 % topical gel 2 g topical QID PRN pain #100 grams 04/12/22 04/15/24 Unknown zoledronic acid 5 mg/100 mL in 5 ea IV ONCE #100 mL 04/12/22 04/15/24 Unknown mannitol 5 %-water intravenous piggybck (Reclast) cyclobenzaprine 10 mg tablet 10 mg PO HS PRN spasms #30 tabs 02/27/23 04/15/24 Unknown furosemide 40 mg tablet 40 mg PO BID #180 tabs 04/17/23 04/15/24 Unknown apixaban 5 mg tablet (Eliquis) 5 mg PO BID #180 tabs 11/25/23 04/15/24 Unknown simvastatin 20 mg tablet 20 mg PO QPM #90 tabs 12/24/23 04/15/24 Unknown metoprolol tartrate 25 mg tablet 25 mg PO BID #180 tabs 02/12/24 04/15/24 Unknown montelukast 10 mg tablet 10 mg PO QAM #90 tabs 02/12/24 04/15/24 Unknown gabapentin 300 mg capsule 300 mg PO BID 90 days #180 caps 03/09/24 04/15/24 Unknown mometasone-formoterol HFA 200 2 puff inhalation Q12H #39 grams 03/30/24 04/15/24 Unknown mcg-5 mcg/actuation aerosol inhaler (Dulera) prednisone 20 mg tablet See Rx Instructions PO .COMPLEX 04/02/24 04/15/24 Unknown #30 tabs cinacalcet 30 mg tablet (Sensipar) 30 mg PO QAM 04/15/24 04/15/24 Unknown ipratropium 0.5 mg-albuterol 3 mg 3 ml inhalation QID PRN SOB 04/15/24 04/15/24 Unknown (2.5 mg base)/3 mL nebulization soln lidocaine 5 % topical patch 1 patch topical DAILY PRN Pain 04/15/24 04/15/24 Unknown omeprazole 40 mg capsule,delayed 40 mg PO QAM 04/15/24 04/15/24 Unknown release ropinirole 0.25 mg tablet 0.25 mg PO UD 04/15/24 04/15/24 Unknown vitamin A-vitamin C-vit E-min 1 tab PO QAM 04/15/24 04/15/24 Unknown tablet Past Medical History Medical History (Updated 04/29/24 @ 10:30 by Zabrina Narvaez PA-C) A-fib currently on eliquis; f/u dr. kellogg, [facility] Allergic rhinitis Asthma Dulera, uses neb at least a few times per week. Breathing stable per patient CHF (congestive heart failure) Follows with Dr. Kellogg- [place] Cardio EF 60-65% on 2020 ECHO Chronic cough CKD (chronic kidney disease) Follows with Dr Bowling Diverticular disease GERD (gastroesophageal reflux disease) well controlled and stable Hx of migraines Hx: UTI (urinary tract infection) finished abx on 04/17/24, "tends to get these often" urology symptoms have since resolved- no current issues Hypertension Lumbar spinal stenosis Lumbosacral radiculopathy due to degenerative joint disease of spine Lymphedema To LE's - uses boot BID to help with circulation Mitral regurgitation Mild to moderate MR per 2020 ECHO Periodic limb movement disorder Tremor Left hand Varicose veins of both lower extremities per pt no current issues Exercise / Class Metabolic Activity III < 4 Walking/Shop/Light housework (no chest pain or SOB with short distance, flat surface ambulation - uses walker ) Past Family History Family History Sister Breast cancer Other Family history not known due to adoption Denies family history of Ovarian cancer Prostate cancer Myocardial infarction Colorectal cancer Past Surgical History Surgical History H/O tubal ligation History of colonoscopy History of esophagogastroduodenoscopy (EGD) History of open reduction and internal fixation (ORIF) procedure left wrist--hardware in place History of tooth extraction all teeth History of total right knee replacement (TKR) 01/2019 [facility] History of total shoulder replacement RIGHT 05/08/18: Gonzalez #2, ETT #7.5, Grade 1 View Hx of bilateral cataract extraction S/P total knee arthroplasty Left- done 07/23/[address] Tracey Right Past Anesthesia History No Hx of Anesthesia Complications and Other (Patient adopted- FH unknown ) History of PONV No Hx of PONV and No Hx of Motion Sickness Social History Smoking Status: Never smoker Do You Dip or Chew Tobacco: No Hx Alcohol Use: Yes Alcohol type: wine alcohol intake frequency: holidays/special occasions only Hx Substance Use: No substance use type: does not use Review of Systems Patient denies chest pain, shortness of breath at rest,, cough, wheezing, palpitations. No hx of seizures, stroke, [place], apnea/snoring. No hx of blood clots or blood transfusions Physical Exam Vital Signs VITALS BP 155/54 (forearm) P 70 TEMP 98.3 SP02 98% RESP 16 Constitutional no acute distress ENMT Mouth: no TMJ clicking Thyromental Distance: < 3.5 Finger Breadths (3.0) Mallampati Class: III Full dentures on top and bottom Neck + limited neck extension (mild) Respiratory normal respiratory effort; no respiratory distress Auscultation: lungs clear to auscultation bilaterally; no wheezes Cardiovascular Heart Sounds: no murmur Vessels: no carotid bruit Irregularly irregular - rate controlled Heart sounds mildly diminished throughout Musculoskeletal Spine: no pain with cervical ROM Extremities: extremities normal to inspection Psychiatric Orientation: alert Lab Results Anesthesia Preop Results Results Anesthesia Widget: WBC 6.73 K/ul (4.8-10.8) 04/28/24 Hgb 11.7 g/dl (12.0-16.0) L 04/28/24 Hct 36.7 % (37.0-47.0) L 04/28/24 Plt 244 K/uL (130-400) 04/28/24 Na 141 mmol/L (136-145) 04/28/24 K 4.3 mmol/L (3.5-5.1) 04/28/24 Cl 103 mmol/L (98-107) 04/28/24 CO2 30 mmol/L (21-32) 04/28/24 BUN 28 mg/dl (6-23) H 04/28/24 Creat 1.42 mg/dl (0.6-1.2) H 04/28/24 Glucose Level 100 mg/dl (70-99(Fasting)) H 04/28/24 PT 11.2 Seconds (9.0-12.0) 04/28/24 PTT 29 Seconds (21-31) 04/28/24 INR 1.0 (0.9-1.1) 04/28/24 Blood Type A Positive 04/28/24 Antibody Screen NEGATIVE 04/28/24 Testing Laboratory Results Anemia- fluctuates- chronic- relatively stable Elevated creatinine- chronic and stable 03/31/24= URINE CULTURE: Alpha strep. not enterococcus, >100,000 CFU/ml, No sensitivities to follow (treated with abx per patient- no UTI symptoms as of PAT appt 04/28/24) Electrocardiogram Date: 04/28/24 Findings: + AFIB @ (80bpm) Left axis deviation Voltage criteria for LVH Possible old septal infarct When compared to EKG from February 21, 2021- no significant change was found per cardio Chest X-Ray Date: 04/28/24 FINDINGS: Lung volumes are normal. No consolidation is present. 1 cm right midlung nodular density is present. There is no pneumothorax or pleural effusion. There is mild cardiomegaly. Mediastinal contours are normal. There is no evidence for pulmonary edema. IMPRESSION: 1. No acute cardiopulmonary findings. 2. 1 cm right midlung nodular density. This favors a pulmonary nodule. Follow-up chest CT is recommended for further evaluation. (Will send workload message to PCP to address prior to surgery) Echocardiogram Date: 02/22/21 EF: 60-65% LV Function: normal RWMA: + none Other Findings: no LVH LA severely dilated RA moderately dilated Mild mitral annual calcification Mild to moderate MR RVSP is elevated at 30-40mmHg Inferior vena cava is mildly dilated
[~2024-05-25 09:06] MED LIST changes: -ACETAMINOPHEN 500 MG TAB PO SCH; -CEFAZOLIN 2000MG 2,000 MG/15 ML SYR IV SCH; +DEXAMETHASONE SOD INJ 4 MG/ML VIAL ONE; -FAMOTIDINE 20 MG TAB PO SCH; -GABAPENTIN 300 MG CAP PO SCH; -LR 500ML BOLUS, THEN 15ML/HR IV SCH; -LR 60ML/HR IV SCH; +MIDAZOLAM HCL 1 MG/ML 2ML VIAL ONE; +ONDANSETRON INJ 2 MG/ML 2 ML VIAL ONE; +PROPOFOL IV EMULSION 10 MG/ML 20 ML VIAL IV ONE; +ROCURONIUM BROMIDE 10 MG/ML 5 ML VIAL IV ONE; -ROPIVACAINE 0.5% HCL/PF 150 MG, BUPIVACAINE 0.5% MPF 30 ML, EPINEPHrine 30MG/30ML (OR U... INFIL SCH; +SUGAMMADEX SODIUM 200 MG/2 ML VIAL IV ONE; -TRANEXAMIC ACID 1,000 MG **IV Pre-op IV SCH; +fentaNYL citrate PF 100 MCG/2 ML VIAL ONE
[2024-05-25] MEDS: LR 15ML/HR IV SCH ×2 (09:55→09:56)
[2024-05-25] MEDS: LR 60ML/HR IV SCH (09:56)
[2024-05-25] MEDS ORDERED: HYDROmorphone INJ 2 MG/ML SYR/VIAL IV PRN (10:21)
[2024-05-25] MEDS ORDERED: ONDANSETRON INJ 2 MG/ML 2 ML VIAL IV PRN ×2 (10:21→17:35)
[2024-05-25] MEDS ORDERED: ATROPINE SULFATE 0.1 MG/ML 10ML SYR IV PRN (10:21)
[2024-05-25] MEDS ORDERED: ePHEDrine sulfate 50 MG/ML AMP IV PRN (10:21)
--- NOTE | 2024-05-25 12:06 | History & Physical Bridge Note ---
Date of Service May 25, 2024 History & Physical Bridge Note I have examined the patient, reviewed the History & Physical and in the interval since the performance of the History & Physical I have noted the following changes of clinical significance: no changes noted
[2024-05-25] MEDS ORDERED: PHENYLEPHRINE HCL 10 MG/ML VIAL ONE (12:56)
[2024-05-25] MEDS ORDERED: ROCURONIUM BROMIDE 10 MG/ML 5 ML VIAL IV ONE (13:06)
[2024-05-25] MEDS: ceFAZolin 2000MG 2,000 MG/15 ML SYR IV SCH ×2 (13:08→20:54)
[2024-05-25] MEDS ORDERED: fentaNYL citrate PF 100 MCG/2 ML VIAL ONE (13:11)
[2024-05-25] MEDS: GELATIN SPONGE 12-7MM ONE (15:23)
[2024-05-25] MEDS: VANCOMYCIN HCL 1000MG/20ML VIAL ONE (16:21)
[2024-05-25] MEDS ORDERED: ONDANSETRON INJ 2 MG/ML 2 ML VIAL ONE (17:09)
[2024-05-25] MEDS: THROMBIN 5000 UNITS KIT ONE (17:11)
[2024-05-25] MEDS: BUPIVACAINE 0.5 % 5 MG/1 ML MPF 30ML VIAL ONE (17:12)
[2024-05-25] MEDS ORDERED: KETOROLAC 30 MG/ML VIAL ONE (17:15)
--- NOTE | 2024-05-25 17:34 | Post Operative Brief Note ---
PG Immediate Post Op with CF Date of Surgery May 25, 2024 Pre & Post Diagnosis Operation Date: 05/25/24 10:55 Pre-Op Diagnosis: Scoliosis of Lumbosacral region due to Degenerative Disease of Spine in Adults Post-Op Diagnosis: Scoliosis of Lumbosacral region due to Degenerative Disease of Spine in Adults I identified the patient and participated in the time-out.: Yes Procedure Operation Date: 05/25/24 10:55 Actual Procedures p L3-4, L4-5 Lumbar Decompression(Not Applicable) - Getachew Byers MD Surgeon Getachew Byers MD Poultry Buyer none Estimated Blood Loss 100 Findings Consistent with Post-Op Diagnosis Drains [place] Catheter
[2024-05-25] MEDS ORDERED: bisacodyL 10 MG SUPP PR PRN (17:35)
[2024-05-25] MEDS ORDERED: ONDANSETRON 4 MG OD TAB PO PRN (17:35)
[2024-05-25] MEDS ORDERED: NALOXONE HCL 0.4 MG/1 ML VIAL/CARP IV PRN (17:35)
[2024-05-25] MEDS ORDERED: oxyCODONE/ACETAMINOPHEN 5mg/325mg TAB PO PRN (17:35)
[2024-05-25] MEDS ORDERED: LORazepam 0.5 MG in SYRINGE 0.25 ML IV PRN (17:35)
[2024-05-25] MEDS ORDERED: SOD PHOSPHATE/SOD BIPHOSPHATE ENEMA 132 ML BTL PR PRN (17:35)
[2024-05-25] MEDS ORDERED: ACETAMINOPHEN 1,000 MG/100 ML VIAL IV PRN (17:35)
[2024-05-25] MEDS ORDERED: DO NOT ADMINISTER PNEUMOCOCCAL VACCINE PRN (17:35)
[2024-05-25] MEDS ORDERED: FAMOTIDINE 20 MG TAB PO PRN (17:35)
[2024-05-25] MEDS ORDERED: diphenhydrAMINE Capsule 25 MG CAP PO PRN (17:35)
[2024-05-25] MEDS ORDERED: hydrOXYzine HCl 25 MG TAB PO PRN (17:35)
[2024-05-25] MEDS ORDERED: METOCLOPRAMIDE HCL INJ 5 MG/ML 2 ML VIAL IV PRN (17:35)
[2024-05-25] MEDS ORDERED: LORazepam 0.5 MG TAB PO PRN (17:35)
[2024-05-25] MEDS ORDERED: PROMETHAZINE HCL 12.5 MG in SODIUM CHLORIDE 0.9% 50 ML IV PRN (17:35)
[2024-05-25] MEDS ORDERED: ALUMINUM/MAGNESIUM SUSP 30 ML UDC PO PRN (17:35)
[2024-05-25] MEDS ORDERED: MAGNESIUM HYDROXIDE SUSP 30 ML UDC PO PRN (17:35)
[2024-05-25] MEDS ORDERED: DO NOT ADMINISTER FLU VACCINE PRN (17:35)
[2024-05-25] MEDS: fentaNYL citrate PF 100 MCG/2 ML VIAL IV PRN (17:36)
--- NOTE | 2024-05-25 17:58 | Anesthesiology Progress Note ---
Date of Service May 25, 2024 Anesthesia Post Procedure Vital Signs Vital Signs: Temp Pulse Pulse Resp BP Pulse Ox O2 Del Method 05/25/24 17:55 97.5 F L 83 22 159/80 H 94 Nasal Cannula 05/25/24 17:45 90 22 180/89 H 98 Oxymask 05/25/24 17:35 82 14 174/88 H 99 Oxymask 05/25/24 17:25 97.5 F L 95 H 20 160/90 H 99 Oxymask 05/25/24 09:38 98.2 F 87 16 167/88 H 96 Room Air O2 Flow Rate 05/25/24 17:55 2 05/25/24 17:45 2 05/25/24 17:35 4 05/25/24 17:25 6 05/25/24 09:38 Pain Intensity Lower Back: Pain Intensity: 3 Transfer of Care Handoff Completed per policy Notes Mental Status: alert / awake / arousable and participated in evaluation Patient Amnestic to Procedure: Yes Nausea / Vomiting: adequately controlled Pain: adequately controlled Airway Patency, RR, SpO2: stable & adequate BP & HR: stable & adequate Hydration State: stable & adequate Anesthetic Complications: no major complications apparent and Pt Satisfied with anesthetic care
[2024-05-25] MEDS ORDERED: CYCLOBENZAPRINE HCL 10 MG TAB PO PRN (18:12)
[2024-05-25] MEDS ORDERED: ALBUTEROL HFA 8 GM INHALER INH PRN (18:12)
[2024-05-25] MEDS ORDERED: ALBUT/IPRATROP 3MG/0.5MG NEB 3 ML VIAL INH PRN (18:12)
[2024-05-25] MEDS: LACTATED RINGER'S 1,000 ML IV SCH (18:22)
[2024-05-25] MEDS: methylPREDNISolone acetate 40 MG/ML VIAL ONE (18:23)
[2024-05-25] MEDS: FLOSEAL HEMOSTATIC MATRIX 5ML TOP ONE (18:23)
[2024-05-25] MEDS: HYDROmorphone INJ 0.5 MG/0.5 ML SYR IV PRN (18:44)
--- NOTE | 2024-05-25 18:59 | Fluoroscopy Report ---
FL spine 1V any level CLINICAL HISTORY: L3-L4, L4-L5 DECOMPRESSION COMPARISON STUDY: Lumbar spine MRI October 23, 2023. Lumbar spine radiographs December 28, 2013. FLUOROSCOPY TIME: 2 minutes and 18 seconds. Ka, r: 153.03 mGy FLUOROSCOPIC IMAGES: 5 FINDINGS: Fluoroscopy was provided during L3-L4 and L4-L5 decompression. Surgical instruments are dir ected over the posterior elements at the L3-L4 and L4-L5 levels. IMPRESSION: Fluoroscopy provided during L3-L4 and L4-L5 decompression. ACT 112: Negative or not required by law. Electronically signed by: Franky Luciano M.D. 05/25/2024 6:58 PM
[2024-05-25] MEDS: FUROSEMIDE 40 MG TAB PO SCH (20:24)
[2024-05-25] MEDS: METOPROLOL TARTRATE 25 MG TAB PO SCH (20:25)
[2024-05-25] MEDS: DOCUSATE SODIUM/SENNA 50/8.6MG TAB PO SCH (20:25)
[2024-05-25] MEDS: GABAPENTIN 300 MG CAP PO SCH (20:25)
[2024-05-25] MEDS: SIMVASTATIN 20 MG TAB PO SCH (20:26)
[2024-05-25] MEDS: rOPINIRole HCL 0.25 MG TABLET PO SCH (20:53)
[2024-05-26] MEDS: POLYETHYLENE (MIRALAX) 17 GM PACK PO SCH (05:36)
[2024-05-26 07:34] LABS: Basophils # (auto) 0.01 K/uL (0.00-0.20); Basophils % (auto) 0.1 %; Hematocrit (blood only) 32.4 % (37.0-47.0); Hemoglobin 10.4 g/dl (12.0-16.0); Immature Granulocytes # (auto) 0.04 K/uL (0.01-0.20); Immature Granulocytes % (auto) 0.5 %; Lymphocytes # (auto) 0.94 K/uL (1.20-3.40); Lymphocytes % (auto) 11.1 %; Mean Corpuscular Hemoglobin 31.4 pg (25.0-34.0); Mean Corpuscular Hgb Conc 32.1 g/dL (32.0-36.0); Mean Corpuscular Volume 97.9 fL (80.0-100.0); Mean Platelet Volume 10.1 fL (9.4-12.4); Monocytes # (auto) 0.59 K/uL (0.11-0.59); Neutrophils % (auto) 81.3 %; Platelet Count 300 K/uL (130-400); RDW Coefficient of Variation 14.4 % (11.5-14.5); RDW Standard Deviation 51.8 fL (36.4-46.3); Red Blood Count 3.31 M/uL (4.20-5.40); White Blood Count 8.48 K/ul (4.8-10.8)
[2024-05-26 07:48] LABS: BUN Creatinine Ratio 14.3 (10-20); Calcium 9.2 mg/dl (8.6-10.3); Creatinine Clr Calc Pharmacy 36.6 ml/min; Est GFR (Non-African American) 35.4 ml/min; Potassium 4.2 mmol/L (3.5-5.1)
[2024-05-26] MEDS: PANTOprazole 40 MG TAB PO SCH (08:39)
[2024-05-26] MEDS: CINACALCET HCL 30 MG TAB PO SCH (08:39)
[2024-05-26] MEDS: FLUTICASONE/VILANTEROL 200/25MCG 14 PUFFS/INHALER INH SCH (08:40)
[2024-05-26] MEDS ORDERED: FAMOTIDINE 20 MG TAB PO PRN (09:15)
--- NOTE | 2024-05-26 09:55 | Orthopedic Progress Note ---
Date of Service May 26, 2024 Subjective Patient seen and examined, she notes some limited incisional symptoms but not to a significant degree. She notes she still has some right lower extremity symptoms but certainly not worsened and perhaps improved to some degree. Patient has intact strength in both lower extremities, operative site unremarkable. Impression/plan: Postop day from two-level decompression L3-4 L4-5. Will have the patient mobilize with physical therapy today, if she clears physical therapy and is mobilizing well with appropriate medications and is cleared by medicine she can be discharged either later today or tomorrow depending on how she is doing. Review of Systems All systems reviewed & are unremarkable except as noted in HPI & below. Physical Exam . Results & Data Results & Data Laboratory Results . Diagnostic Findings . PG Care Time/CCT Total # of Minutes Spent Total Time Spent with Patient: Total time spent is greater than 50% in coordination of care (as documented) at patient's floor/unit and/or counseling patient: Coding Level of Care Code 98469 Post Operative Follow-Up
--- NOTE | 2024-05-26 10:37 | Operative Report ---
PG Post Operative Report Pre & Post Diagnosis Operation Date: 05/25/24 10:55 Pre-Op Diagnosis: Scoliosis of Lumbosacral region due to Degenerative Disease of Spine in Adults Post-Op Diagnosis: Scoliosis of Lumbosacral region due to Degenerative Disease of Spine in Adults I identified the patient and participated in the time-out.: Yes Procedure Operation Date: 05/25/24 10:55 Actual Procedures p L3-4, L4-5 Lumbar Decompression(Not Applicable) - Getachew Byers MD Surgeon Getachew Byers MD Heating Worker none Estimated Blood Loss 100 Findings Consistent with Post-Op Diagnosis Specimens None Description of Procedure 1. L3-4 posterior lumbar decompression. (94000) 2. L4-5 posterior lumbar decompression. (74580) Patient was taken the operating room after adequate anesthesia was carefully positioned prone on the Bo frame. Preprep was performed thoroughly followed by bringing in fluoroscopy where I marked the location of the incisions. Prep and drape was performed, I began the procedure at the L4-5 level, off midline incision was made in the right and from this I then used fluoroscopic guidance to advance a initial probe from the base of tube system down to the interlaminar region on the patient's right side at L4-5. [address] I then advanced dilators followed by the access apparatus. Operative microscope was brought in, and I began the procedure with moving some of the overlying remaining muscle tissue then exposing the bony surfaces. High-speed bur was then utilized to move across the inferior laminar edge of L4 across superior lamina edge of L5 along the medial facet for a right-sided hemilaminectomy. This process continued till is able to expose the dura and then mobilizes centrally and with this I had to address epidural vessels with combination of Floseal and bipolar cautery. Once mobilized, I was able to locate the disc protrusion, this was incised and then I inserted a number of pituitaries to remove the disc material. This required several different attempts, with this I was able to get numerous fragments from the L4-5 level successfully. I continues process without the decompression for the disc base and interbody region was completed. Floseal was then applied along vancomycin powder, I then moved onto the L3-4 level. In a similar fashion on the left side off midline, I performed the same procedure with insertion of the initial dilator with an off midline incision to the L3-4 interspace region interlaminar area. This was confirmed fluoroscopically, I then in a similar fashion mobilized the remaining soft tissues. From here I had a performed left-sided decompression hemilaminectomy of the interspace by removal of the inferior laminar edge of L3 some of the superior lamina of L4 along the medial facet. With this I was able to undercut the facet, and also removed ligamentum flavum midline and across the interspace decompressing the segment centrally and also in the left lateral recess with facet arthrosis was causing stenosis. Final evaluation of both areas revealed no evidence of any CSF leakage, once again epidural bleeding was controlled with combination of Floseal and bipolar cautery, vancomycin powder was placed. Both operative sites were closed with 0 Vicryl sutures in the fascial layer followed by additional 0 Vicryl suture, vancomycin powder, 2-0 Vicryl sutures and carolyn for both incisions, sterile dressings applied and patient taken recovery room/bed condition. I attest to the content of the Intraoperative Record and any orders documented therein. Any exceptions are noted below.
--- NOTE | 2024-05-26 12:50 | Hospitalist Consultation ---
Date of Consultation May 26, 2024 Assessment & Plan (1) Lumbosacral radiculopathy due to degenerative joint disease of spine: 79 y/o with HFpEF and chronic kidney disease who underwent L3-4 and L4-[address] Byers on 05/25/24. Preop she had dobutamine stress echo which was interpreted as low risk, notable otherwise for normal LVEF, mildly reduced RV function, mod MR and TR, mild AI Doing well postop. Avoid nsaids because of CKD Probably home in am (2) A-fib: Resume apixaban when safe per spine surgeon Continue metoprolol 25 bid HR well controlled (3) CHF (congestive heart failure): Chronic HFpEF, mod MR and TR, mild AI Also has lymphedema -continue metoprolol, furosemide 40 mg bid -well compensated, no evidence of volume overload (4) Mitral regurgitation: see above (5) CKD (chronic kidney disease): Stage 3-[address] Bowling -Josemanuel is at baseline today -avoid nsaids, continue cinacalcet (6) Asthma: Not in flare, mild Continue fluticasone/vilanterol (7) Hypertension: Meds as above. Normotensive History of Present Illness Reason for Consultation: Evaluate HFpEF, CKD stage 3, hypertension Requesting Physician: Dr. Byers Attending Physician: Getachew Byers MD History of Present Illness 79 y/o with HFpEF and chronic kidney disease who underwent L3-4 and L4-[address] Byers on 05/25/24. Preop she had dobutamine stress echo which was interpreted as low risk, notable otherwise for normal LVEF, mildly reduced RV function, mod MR and TR, mild AI She did well with surgery and today notes resolution of radicular pain that was radiating down right leg. No anesthesia complications and no immediate surgical complications. Off supplemental O2 since this am and no longer has hoff catheter, able to void spontaneously. Low back pain at incision is well controlled with current medications and she has no LE numbness weakness or tingling. Has been OOB standing and currently in chair. No shortness of breath, coughing, wheezing, or chest pain. Has some mild leg edema which is a little worse than baseline. I reviewed outpatient primary care, nephrology, cardiology notes. Allergies Allergy/AdvReac Type Severity Reaction Status Date / Time oxycodone [From OxyContin] Allergy Mild itchy Verified 05/12/24 10:07 Home Medications Medication Instructions Recorded Confirmed Type xnozgcvynhy-mvw-[id number]-vitC 1 tab PO QAM 12/01/18 05/12/24 History capsule (Glucosamine Complex-MSM capsule) albuterol sulfate 90 mcg/actuation 2 puff inhalation Q6H PRN sob #6.7 01/03/20 05/12/24 Rx aerosol inhaler grams multivitamin 1 tab PO QAM 02/21/21 05/12/24 History diclofenac sodium 1 % topical gel 2 g topical QID PRN pain #100 grams 04/12/22 05/12/24 Rx zoledronic acid 5 mg/100 mL in 5 ea IV ONCE #100 mL 04/12/22 05/12/24 Rx mannitol 5 %-water intravenous piggybck (Reclast) cyclobenzaprine 10 mg tablet 10 mg PO HS PRN spasms #30 tabs 02/27/23 05/12/24 Rx furosemide 40 mg tablet 40 mg PO BID #180 tabs 04/17/23 05/12/24 Rx apixaban 5 mg tablet (Eliquis) 5 mg PO BID #180 tabs 11/25/23 05/12/24 Rx simvastatin 20 mg tablet 20 mg PO QPM #90 tabs 12/24/23 05/12/24 Rx metoprolol tartrate 25 mg tablet 25 mg PO BID #180 tabs 02/12/24 05/12/24 Rx gabapentin 300 mg capsule 300 mg PO BID 90 days #180 caps 03/09/24 05/12/24 Rx mometasone-formoterol HFA 200 2 puff inhalation Q12H #39 grams 03/30/24 05/12/24 Rx mcg-5 mcg/actuation aerosol inhaler (Dulera) cinacalcet 30 mg tablet (Sensipar) 30 mg PO QAM 04/15/24 05/12/24 History ipratropium 0.5 mg-albuterol 3 mg 3 ml inhalation QID PRN SOB 04/15/24 05/12/24 History (2.5 mg base)/3 mL nebulization soln lidocaine 5 % topical patch 1 patch topical DAILY PRN Pain 04/15/24 05/12/24 History omeprazole 40 mg capsule,delayed 40 mg PO QAM 04/15/24 05/12/24 History release ropinirole 0.25 mg tablet 0.25 mg PO UD 04/15/24 05/12/24 History vitamin A-vitamin C-vit E-min 1 tab PO QAM 04/15/24 05/12/24 History tablet montelukast 10 mg tablet 10 mg PO QAM #90 tabs 05/18/24 Rx Patient History Medical History Lymphedema To LE's - uses boot BID to help with circulation Varicose veins of both lower extremities per pt no current issues Mitral regurgitation Mild to moderate MR per 2020 ECHO Lumbosacral radiculopathy due to degenerative joint disease of spine Lumbar spinal stenosis Hx of migraines Hx: UTI (urinary tract infection) finished abx on 04/17/24, "tends to get these often" urology symptoms have since resolved- no current issues Tremor Left hand Periodic limb movement disorder Hypertension CHF (congestive heart failure) Follows with Dr. Kellogg- [place] Cardio EF 60-65% on 2020 ECHO Allergic rhinitis Asthma Dulera, uses neb at least a few times per week. Breathing stable per patient A-fib currently on eliquis; f/u dr. kellogg, [facility] Chronic cough Diverticular disease CKD (chronic kidney disease) Follows with Dr Bowling GERD (gastroesophageal reflux disease) well controlled and stable Surgical History History of total right knee replacement (TKR) 01/2019 [facility] Hx of bilateral cataract extraction S/P total knee arthroplasty Left- done 07/23/[address] Tracey Right History of tooth extraction all teeth History of esophagogastroduodenoscopy (EGD) H/O tubal ligation History of colonoscopy History of open reduction and internal fixation (ORIF) procedure left wrist--hardware in place History of total shoulder replacement RIGHT 05/08/18: Gonzalez #2, ETT #7.5, Grade 1 View Family History Sister Breast cancer Other Family history not known due to adoption Denies family history of Ovarian cancer Prostate cancer Myocardial infarction Colorectal cancer Social History Smoking Status: Never smoker Second Hand Exposure: Yes (FATHER SMOKED); Do You Dip or Chew Tobacco: No; Tobacco Cessation Education Requested by Patient: No Hx Alcohol Use: Yes Alcohol type: wine Alcohol Intake Frequency: Monthly or Less Hx Substance Use: No Preferred Language: Albanian Communication Ability: Effective Visual Impairment: Limited Hearing Ability: Normal Bookkeepers Supervisor Required: No Beliefs That Will Affect Care: None marital status: Current Living Situation: Spouse current occupational status: retired How many Children do You have: 2 Other Information That Helps Us Care for You: No Feels Safe at Home: Yes Safety Concerns: Feels Safe At This Time Childhood Exposure to Second-Hand Smoke: Yes Diet: regular caffeine: Yes (COFFEE) during the past year weight has: remained stable Dental Care, Regularly: Yes Physical Activity Frequency: Does not Exercise Seatbelt Use: always Sunscreen Use: No Assistive Devices: Cane and Walker Review of Systems 2 Review of Systems: All systems reviewed & are unremarkable except as noted in HPI & below Physical Exam 2 Physical Exam: PHYSICAL EXAMINATION Last 24h vital signs reviewed, see documentation in flowsheet General: comfortable appearing, no distress, sitting up in the chair appears well HEENT: Normocephalic, atraumatic, pupils round and equal, sclerae anicteric, no conjunctival injection, moist mucus membranes Lungs: Normal respiratory effort. Clear to auscultation bilaterally. No RRW Heart: irregularly irregular, systolic murmur. No JVD Abdomen: Soft, nontender, nondistended. Bowel sounds present. Extremities: Warm, dry, well-perfused. 1+ lower extremity edema - ankles. Neuro: Alert and oriented x 4, face symmetric, moves 4 extremities well Psych: Normal affect and behavior Results & Data Results & Data Vital Signs (Past 12 Hours) Vital Signs Temp Pulse Pulse Resp BP BP Pulse Ox 05/26/24 12:22 36.6 C 71 16 123/70 97 05/26/24 08:37 70 129/70 05/26/24 08:04 36.4 C L 71 16 133/77 97 05/26/24 02:22 36.4 C L 77 16 136/78 100 O2 Del Method O2 Flow Rate 05/26/24 12:22 Room Air 05/26/24 08:37 05/26/24 08:04 Room Air 05/26/24 02:22 Nasal Cannula 3 Laboratory Results 05/26/24 06:59 05/26/24 06:59 PG Care Time/CCT Total # of Minutes Spent Total Time Spent with Patient: Total time spent is greater than 50% in coordination of care (as documented) at patient's floor/unit and/or counseling patient: Coding Level of Care Code None Diagnoses Lumbosacral radiculopathy due to degenerative joint disease of spine M47.27 A-fib I48.91 Atrial fibrillation type: unspecified CHF (congestive heart failure) I50.9 Heart failure chronicity: unspecified Heart failure type: unspecified Mitral regurgitation I34.0 Stage 3 chronic kidney disease, unspecified whether stage 3a or 3b CKD N18.30 Chronic kidney disease stage: stage 3 (moderate) Chronic kidney disease stage 3 subtype: unspecified whether 3a or 3b Mild intermittent asthma without complication J45.20 Asthma severity: mild Asthma persistence: intermittent Asthma complication type: uncomplicated Hypertension I10 Hypertension type: unspecified CPT Codes INITIAL HOSP INP/OBS CARE LVL 2, 55 MIN - [id number] ([id number]) Time Spent (min) 55 (2) A-fib Atrial fibrillation type: unspecified Qualified Code(s): I48.91 - Unspecified atrial fibrillation (3) CHF (congestive heart failure) Heart failure chronicity: unspecified Heart failure type: unspecified Qualified Code(s): I50.9 - Heart failure, unspecified (5) CKD (chronic kidney disease) Chronic kidney disease stage: stage 3 (moderate) Chronic kidney disease stage 3 subtype: unspecified whether 3a or 3b Qualified Code(s): N18.30 - Chronic kidney disease, stage 3 unspecified (6) Asthma Asthma severity: mild Asthma persistence: intermittent Asthma complication type: uncomplicated Qualified Code(s): J45.20 - Mild intermittent asthma, uncomplicated (7) Hypertension Hypertension type: unspecified Qualified Code(s): I10 - Essential (primary) hypertension
[2024-05-26] MEDS: ACETAMINOPHEN 500 MG TAB PO PRN (15:11)
--- NOTE | 2024-05-27 07:44 | Orthopedic Progress Note ---
Date of Service May 27, 2024 Subjective Patient seen and examined, she notes distinct improvement of her preoperative symptoms, she commented that she had less leg pain when she was ambulating in the hallway yesterday. Any limited axial symptoms are controlled with Tylenol Incision site is unremarkable, motor intact. Impression/plan: Patient is postoperative day 2 from lumbar decompression L3-4 L4-5 with improvement of preoperative symptoms. Patient is doing well enough, and if passes physical therapy later today and valuation by the hospitalist, can be discharged to home. I reviewed with her care of the operative site and she will take acetaminophen at home for pain, follow-up in 2 weeks. Review of Systems All systems reviewed & are unremarkable except as noted in HPI & below. Physical Exam . Results & Data Results & Data Laboratory Results . Diagnostic Findings . PG Care Time/CCT Total # of Minutes Spent Total Time Spent with Patient: Total time spent is greater than 50% in coordination of care (as documented) at patient's floor/unit and/or counseling patient: Coding Level of Care Code 00562 Post Operative Follow-Up
--- NOTE | 2024-05-27 07:49 | Discharge Summary ---
Date of Service May 27, 2024 Admission HPI (Per Admitting) Lumbar stenosis with radiculopathy. Principal Diagnosis Same as "Discharge Diagnosis" noted below under Discharge Instructions. Discharge Exam Incision site unremarkable, no notable drainage, motor intact. Discharge Data Consultations 05/25/24 17:37 Consult Hospitalist Routine Procedures Performed Operation Date: 05/25/24 10:55 Actual Procedures p L3-4, L4-5 Lumbar Decompression(Not Applicable) - Getachew Byers MD Ordered Studies 05/25/24 07:00 [place] spine 1V any level Routine Hospital Course (1) Scoliosis of lumbosacral region due to degenerative disease of spine in adult: (2) Lumbar spinal stenosis: Lumbar decompression L3-4 L4-5. Neurogenic claudication status: unspecified Qualified Code(s): M48.061 - Spinal stenosis, lumbar region without neurogenic claudication Plan Lumbar decompression L3-4 L4-5. PG Care Time/CCT Total # of Minutes Spent Total Time Spent with Patient: Total time spent is greater than 50% in coordination of care (as documented) at patient's floor/unit and/or counseling patient: Discharge Plan Discharge Items Patient Disposition: Home - Self-Care Reason For Visit: SURGERY Discharge Diagnosis: Lumbar stenosis, radiculopathy. Condition on Discharge: Good Activity: As commented below Lifting: No more than 10 pounds Bathing: May shower/bathe in 3 days Bathing Comment: Briefly wash incision area with soap and rinse. Weightbearing: Full weightbearing Non-emergency contact: Surgeon Call non-emergency contact if: your pain is worsening Follow-up/Referrals: Sherley Jeffrey MD [Primary Care Provider] - 06/03/24 10:00 am Diet: Regular Addtl Attending Provider Instructions: Operative site care discussed, ambulation recommended, follow-up in 2 weeks. Pending Studies at Discharge: No Stand-Alone Forms: My Undesk, Smoking Cessation Medications and DC Order Prescriptions: Continued cyclobenzaprine 10 mg tablet 10 mg PO HS PRN (Reason: spasms) Qty: 30 2RF furosemide 40 mg tablet 40 mg PO BID Qty: 180 3RF Eliquis 5 mg tablet 5 mg PO BID Qty: 180 3RF simvastatin 20 mg tablet 20 mg PO QPM Qty: 90 1RF metoprolol tartrate 25 mg tablet 25 mg PO BID Qty: 180 3RF Dulera 200-5 mcg/actuation HFA aerosol inhaler 2 puff inhalation Q12H Qty: 39 3RF montelukast 10 mg tablet 10 mg PO QAM Qty: 90 1RF albuterol sulfate 90 mcg/actuation HFA aerosol inhaler 2 puff INHALATION Q6H PRN (Reason: sob) Qty: 6.7 5RF diclofenac sodium 1 % gel 2 g topical QID PRN (Reason: pain) Qty: 100 0RF Rx Instructions: apply to single elbow, wrist or hand; for hand includes palm/fingers/back of hand zoledronic [id number] [Reclast] 5 mg/100 mL piggyback 5 ea IV ONCE Qty: 100 1RF Rx Instructions: 5 mg IV Q 12 months gabapentin 300 mg capsule 300 mg PO BID 90 Days Qty: 180 3RF Glucosamine Complex-MSM Capsule 1 tab PO QAM multivitamin Tablet 1 tab PO QAM vitamin A-vitamin C-vit E-min Tablet 1 tab PO QAM ipratropium-albuterol 0.5 mg-3 mg(2.5 mg base)/3 mL solution for nebulization 3 ml inhalation QID PRN (Reason: SOB) Rx Instructions: USE 1 VIAL IN NEBULIZER 4 TIMES A DAY. omeprazole 40 mg capsule,delayed release(DR/EC) 40 mg PO QAM ropinirole 0.25 mg tablet 0.25 mg PO UD Rx Instructions: take 1-2 hours before bedtime lidocaine 5 % adhesive patch,medicated 1 patch topical DAILY PRN (Reason: Pain) Rx Instructions: leave on most painful area for up to 12 hrs cinacalcet [Sensipar] 30 mg tablet 30 mg PO QAM Discharge Orders: Discharge Order (Routine); Ordered 05/27/24 Ordered By: Getachew Prince/Other Patient Handouts: Spinal Fusion: Posterior Lumbar Admission Data Admit Date/Time: 05/25/24 17:35 Attending Provider: Getachew Byers Admit Provider: Getachew Byers Primary Care Provider: Sherley Jeffrey Other Providers: Asuncion Trevino Other Interventions: Discharge Summary Assessment (RN) Last Done: 05/27/24 10:27
--- NOTE | 2024-05-27 16:03 | Hospitalist Progress Note ---
Date of Service May 27, 2024 Assessment & Plan (1) Lumbosacral radiculopathy due to degenerative joint disease of spine: Plan: 79 y/o with HFpEF and chronic kidney disease who underwent L3-4 and L4-[address] Byers on 05/25/24. Preop she had dobutamine stress echo which was interpreted as low risk, notable otherwise for normal LVEF, mildly reduced RV function, mod MR and TR, mild AI Doing well postop. Avoid nsaids because of CKD - discussed and she is well aware of thus advised she take her incentive spirometer home and keep using it for this week. has some right greater than left basilar coarse crackles likely atelectatic (2) A-fib: Plan: Resumed apixaban on discharge Continue metoprolol 25 bid HR well controlled (3) CHF (congestive heart failure): Plan: Chronic HFpEF, mod MR and TR, mild AI Also has lymphedema -continue metoprolol, furosemide 40 mg bid - remains well compensated, no evidence of volume overload (4) Mitral regurgitation: Plan: see above (5) CKD (chronic kidney disease): Plan: Stage 3-[address] Bowling -Cr is at baseline -avoid nsaids, continue cinacalcet (6) Asthma: Plan: Not in flare, mild Continue fluticasone/vilanterol (7) Hypertension: Plan: Meds as above. Normotensive Admission and Anticipated Discharge Date Admission Date: May 25, 2024 Subjective continues to do well postop has some low back soreness at incision site however no pain radiating down her legs no shortness of breath or chest pain plans to go home today Physical Exam 2 Physical Exam: PHYSICAL EXAMINATION Last 24h vital signs reviewed, see documentation in flowsheet General: sitting in the chair dressed in street clothes HEENT: Normocephalic, atraumatic, pupils round and equal, sclerae anicteric, no conjunctival injection, moist mucus membranes Lungs: Normal respiratory effort. bibasilar crackles cleared on the left with deeper inspirations, coarse right base crackles persisted Heart: irregularly irregular, systolic murmur. No JVD Abdomen: Soft, nontender, nondistended. Bowel sounds present. Extremities: Warm, dry, well-perfused. 1+ lower extremity edema - ankles, improved since yesterday. Neuro: Alert and oriented x 4, face symmetric, moves 4 extremities well Psych: Normal affect and behavior Results & Data Results & Data Vital Signs (Past 12 Hours) Vital Signs Temp Pulse Resp BP Pulse Ox O2 Del Method 05/27/24 07:17 36.6 C 84 16 144/75 H 93 Room Air Laboratory Results 05/26/24 06:59 05/26/24 06:59 PG Care Time/CCT Total # of Minutes Spent Total Time Spent with Patient: Total time spent is greater than 50% in coordination of care (as documented) at patient's floor/unit and/or counseling patient: Coding Level of Care Code 60244 SUB INP/OBS CARE 11/27MIN Diagnoses Lumbosacral radiculopathy due to degenerative joint disease of spine M47.27 A-fib I48.91 Atrial fibrillation type: unspecified CHF (congestive heart failure) I50.9 Heart failure chronicity: unspecified Heart failure type: unspecified Mitral regurgitation I34.0 Stage 3 chronic kidney disease, unspecified whether stage 3a or 3b CKD N18.30 Chronic kidney disease stage: stage 3 (moderate) Chronic kidney disease stage 3 subtype: unspecified whether 3a or 3b Mild intermittent asthma without complication J45.20 Asthma severity: mild Asthma persistence: intermittent Asthma complication type: uncomplicated Hypertension I10 Hypertension type: unspecified (2) A-fib Atrial fibrillation type: unspecified Qualified Code(s): I48.91 - Unspecified atrial fibrillation (3) CHF (congestive heart failure) Heart failure chronicity: unspecified Heart failure type: unspecified Qualified Code(s): I50.9 - Heart failure, unspecified (5) CKD (chronic kidney disease) Chronic kidney disease stage: stage 3 (moderate) Chronic kidney disease stage 3 subtype: unspecified whether 3a or 3b Qualified Code(s): N18.30 - Chronic kidney disease, stage 3 unspecified (6) Asthma Asthma severity: mild Asthma persistence: intermittent Asthma complication type: uncomplicated Qualified Code(s): J45.20 - Mild intermittent asthma, uncomplicated (7) Hypertension Hypertension type: unspecified Qualified Code(s): I10 - Essential (primary) hypertension
== END 2024-05-27 11:06 | disposition home or self-care (01) ==
LOC: ASU 09:06 → 3E 09:06
DX: M41.9 Scoliosis, unspecified; I48.91 Unspecified atrial fibrillation; J45.909 Unspecified asthma, uncomplicated; Z79.01 Long term (current) use of anticoagulants; I08.1 Rheumatic disorders of both mitral and tricuspid valves; I89.0 Lymphedema, not elsewhere classified; M51.17 Intervertebral disc disorders with radiculopathy, lumbosacral region; Z79.899 Other long term (current) drug therapy; N18.4 Chronic kidney disease, stage 4 (severe); K21.9 Gastro-esophageal reflux disease without esophagitis; M48.061 Spinal stenosis, lumbar region without neurogenic claudication; I50.32 Chronic diastolic (congestive) heart failure; Z88.5 Allergy status to narcotic agent; I13.0 Hypertensive heart and chronic kidney disease with heart failure and stage 1 through stage 4 chronic kidney disease, or unspecified chronic kidney disease

== ENCOUNTER 2025-01-21 02:55 | Inpatient (IN) ==
--- NOTE | 2025-01-21 03:42 | XRay Report ---
EXAM: XR chest 1V not portable CLINICAL HISTORY: Chest pain, nonspecific TECHNIQUE: An X-ray image of the chest is obtained in AP projection. COMPARISON: prior 04/28/2024 FINDINGS: Cardiac silhouette is mildly enlarged. This has progressed. Aortic knuckle calcifications There is perihilar interstitial/vascular thickening suggestive of pulmonary edema. Perihilar airspace nodular opacities more at the left side likely represent a component of congestive change. A superimposed pneumonia cannot be excluded. No pleural effusions. No pneumothorax. A right shoulder prosthesis is again noted. Cardiomegaly with mild to moderate interstitial pulmonary edema which has progressed in the interval. Hazy perihilar airspace opacities likely representing a component of the congestive change. A superimposed pneumonia cannot be excluded. IMPRESSION: Cardiomegaly with mild to moderate interstitial pulmonary edema which has progressed in the interval. Perihilar nodular airspace opacities more prominent on the left, likely representing a component of the congestive change. A superimposed pneumonia cannot be excluded. Follow up is recommended Progressive findings compared to prior x ray dated 04/28/2024 Electronically signed by Liu Pereira 01-21-2025 03:38 AM
[2025-01-21 03:44] LABS: Basophils # (auto) 0.03 K/uL (0.00-0.20); Basophils % (auto) 0.2 %; Eosinophils # (auto) 0.01 K/uL (0.00-0.50); Eosinophils % (auto) 0.1 %; Hemoglobin 9.8 g/dl (12.0-16.0); Immature Granulocytes # (auto) 0.07 K/uL (0.01-0.20); Immature Granulocytes % (auto) 0.6 %; Lymphocytes # (auto) 0.85 K/uL (1.20-3.40); Lymphocytes % (auto) 6.8 %; Mean Corpuscular Hgb Conc 32.7 g/dL (32.0-36.0); Mean Corpuscular Volume 88.8 fL (80.0-100.0); Mean Platelet Volume 9.7 fL (9.4-12.4); Monocytes # (auto) 1.22 K/uL (0.11-0.59); Monocytes % (auto) 9.8 %; Neutrophils # (auto) 10.32 K/uL (1.40-6.50); Neutrophils % (auto) 82.5 %; Platelet Count 201 K/uL (130-400); RDW Coefficient of Variation 15.6 % (11.5-14.5); RDW Standard Deviation 50.4 fL (36.4-46.3); Red Blood Count 3.38 M/uL (4.20-5.40)
[2025-01-21 04:02] LABS: Albumin Level 3.9 gm/dl (3.4-5.0); BUN Creatinine Ratio 18.6 (10-20); Bilirubin,Total 0.8 mg/dl (0.2-1.0); Calcium 8.8 mg/dl (8.6-10.3); Creatinine Clr Calc Pharmacy 32.6 ml/min; Globulin 3.8 gm/dl (2.5-4.0); Magnesium 1.3 mg/dl (1.7-2.4); Potassium 3.6 mmol/L (3.5-5.1); Total Protein 7.7 gm/dl (6.0-8.3)
[2025-01-21 04:08] LABS: Troponin I High Sensitivity 17.1 pg/ml (0-14)
[2025-01-21 04:15] LABS: Adenovirus PCR Not Detected (NotDetected); Bordetella parapertussis PCR Not Detected (NotDetected); Bordetella pertussis PCR Not Detected (NotDetected); Chlamydia pneumoniae PCR Not Detected (NotDetected); Coronavirus 229E PCR Not Detected (NotDetected); Coronavirus CoV-2 (COVID19)PCR Not Detected (NotDetected); Coronavirus HKU1 PCR Not Detected (NotDetected); Coronavirus NL63 PCR Not Detected (NotDetected); Coronavirus OC43PCR Not Detected (NotDetected); Human Metapneumovirus PCR Not Detected (NotDetected); Influenza A PCR Not Detected (NotDetected); Influenza B PCR Not Detected (NotDetected); Mycoplasma pneumoniae PCR Not Detected (NotDetected); Parainfluenza Virus 1 PCR Not Detected (NotDetected); Parainfluenza Virus 2 PCR Not Detected (NotDetected); Parainfluenza Virus 3 PCR Not Detected (NotDetected); Parainfluenza Virus 4 PCR Not Detected (NotDetected); Respiratory Syncytial VirusPCR Not Detected (NotDetected); Rhinovirus/Enterovirus PCR Not Detected (NotDetected)
[2025-01-21 04:19] LABS: INR 1.3 (0.9-1.1); Partial Thromboplastin Ratio 1.4; Partial Thromboplastin Time 37 Seconds (21-31); Prothrombin Time 13.7 Seconds (9.0-12.0)
[2025-01-21] MEDS: MAGNESIUM SULFATE / D5W 1 GM/100 ML BAG IV SCH ×2 (04:36→06:48)
[2025-01-21] MEDS: METOPROLOL TARTRATE 1 MG/ML VIAL IV STA ×3 (04:36→20:51)
--- NOTE | 2025-01-21 04:59 | Emergency Department Note ---
Impression & Plan Acute dyspnea, Atrial fibrillation with rapid ventricular response, Hypomagnesemia, Elevated brain natriuretic peptide (BNP) level ED Provider Note ED Provider Note NAME: JADE MILLER AGE:79 SEX: Female : 1945 ARRIVES VIA: Private vehicle INFORMANT: Patient ED PROVIDER(s): Judit Diaz DO CHIEF COMPLAINT: Dyspnea, nausea HPI: This is an 79-year-old female who presents emergency department with family at bedside due to concern for dyspnea as well as nausea. at bedside states she began complaining of not feeling well 2 nights ago after an event at their confucianism. She stated she was nauseated but did not have any vomiting, abdominal pain, or diarrhea. No evolving fevers or chills. She was able to eat and drink some yesterday during the day but complained of increased difficulty breathing. noted tonight she had significantly increased work of breathing when she tried to lay down to sleep. was concerned as this is similar to when she has had congestive heart failure previously. Patient states she does do daily weights due to her history of CHF and takes a daily diuretic. No recent increase in her weight, no recent leg swelling. She states she does have a chronic cough, this is unchanged, and she states it is not productive. She denies any other recent URI symptoms. No fevers or chills. She denies chest pain or palpitations. She does have a history of atrial fibrillation but states "she cannot feel it". She states she does follow with Dr. Kellogg of cardiology. PAST MEDICAL HISTORY:See Below PAST SURGICAL HISTORY:See Below FAMILY HISTORY:See Below SOCIAL HISTORY:See Below HOME MEDICATIONS:See Below ALLERGIES:See Below VITALS:See Below PHYSICAL EXAMINATION: GENERAL: alert, well appearing, well nourished, no distress, non-toxic EYE EXAM: normal conjunctiva, PERRL and EOM's grossly intact OROPHARYNX: no exudate, no erythema, lips, buccal mucosa, and tongue normal and mucous membranes are moist NECK: supple, no nuchal rigidity, no adenopathy, non-tender LUNGS: Clear to auscultation. Normal chest wall mechanics, no w/r/r HEART: no murmurs, S1 normal and S2 normal ABDOMEN: abdomen soft, non-tender, normo-active bowel sounds, no masses, no rebound or guarding. BACK: Back is symmetrical on inspection and there is no deformity, no midline tenderness, no CVA tenderness. SKIN: no rashes, petechiae, orbruising UPPER EXTREMITIES: upper extremities are grossly normal. FROM, nml pulses b/l. LOWER EXTREMITIES: No pitting edema. FROM, nml pulses b/l. NEURO EXAM: Normal sensorium, cranial nerves II-XII grossly intact, normal speech, no facial droop,nogross weakness of arms, no gross weakness of legs. Gross sensation intact. No ataxia. Vital Signs: reviewed and remarkable Differential Diagnosis: pneumonia, bronchitis, COPD/Asthma exacerbation, pneumothorax, pulmonary embolism, congestive heart failure, acute coronary syndrome, as well as others were considered MEDICAL DECISION MAKING: This is an 79-year-old female who presents emergency department due to increased shortness of breath. Family concern for evolving congestive heart failure she has had similar episodes previously. Patient noted to be tachypneic and tachycardic on arrival. She was in atrial fibrillation with RVR. Labs drawn and sent, IV established, EKG and chest x-ray performed at bedside interpreted by me and patient monitored on telemetry. Patient given a dose of IV metoprolol with significant improvement in her heart rate. She was noted to have significant hypomagnesemia as well and was started on IV repletion. Patient did report improvement in her breathing following improvement in her heart rate. Patient's chest x-ray with possible evolving pulmonary edema as read by outside radiology. Her BNP was also significantly elevated. Patient did not have any overt hypoxia at rest, with any prolonged conversation and/or attempts at movement such as going to the bathroom following administration of IV Lasix, she was noted to desat into the upper 80s. She would improve up into the 90s with rest. Due to concern for ongoing dyspnea with borderline hypoxia, need for further careful diuresis and monitoring of her heart rate as well as further magnesium repletion, case discussed with the hospitalist team for additional evaluation and management. Given patient's ongoing anticoagulation, I did not feel her symptoms were more likely to be related to an occult PE. Patient's creatinine was elevated however stable compared to prior she does have a history of CKD. Nasal swab also obtained and sent during her evaluation here was negative for any acute viral syndrome. Consultation(s): 0550: Discussed with Dr. Fritz, [facility] hospitalist team, for additional evaluation and management ER Treatment Provided: See below 0535: All results discussed with patient and at bedside. Heart rate has been improved since addition of metoprolol. Patient noted to be intermittently hypoxic down to 88% but does improve with deep breathing. This was also noted with ambulatory efforts to the bathroom however oxygen improves with rest. Patient states she does feel improved. We did discuss all results at bedside. Diagnostics Interpreted By Me: -ECG: Atrial fibrillation at a rate of 143, normal axis, normal intervals, Q waves noted in V2, ST depression noted in 1, and aVL with accompanying T wave inversions -Cardiac Monitoring: An order was placed for continuous cardiac monitoring. The monitor shows a rate of 127 with A-fib rhythm. -Laboratory studies: As stated above and show below. -Imaging studies: cxr: Mild cardiomegaly, no wide mediastinum, no pleural effusion, increased interstitial markings bilaterally Triage Nursing Note Reviewed Prior/Outside Records Reviewed -prior cardiology note reviewed Past Med/Surg History Problem List Renal insufficiency Acute on chronic heart failure Elevated brain natriuretic peptide (BNP) level (Acute) Hypomagnesemia (Acute) Atrial fibrillation with rapid ventricular response (Acute) Acute dyspnea (Acute) Frequent urinary tract infections (Chronic) Bilateral leg pain Pulmonary nodule Status post lumbar spine surgery for decompression of spinal cord Spondylolisthesis at L5-S1 level Spondylolysis of lumbosacral region Scoliosis of lumbosacral region due to degenerative disease of spine in adult Periodic limb movement disorder Mixed action and resting tremor Lumbar pain Greater trochanteric pain syndrome of right lower extremity Scoliosis of lumbosacral region due to degenerative disease of spine in adult Lumbosacral spondylosis Lumbar spinal stenosis Trochanteric bursitis of right hip Lumbar radiculopathy, chronic Sciatica Lower extremity edema (Chronic) Mitral regurgitation A-fib (Acute) CHF (congestive heart failure) (Chronic) Restless leg syndrome Tremor Hypercalcemia (Acute) Follows with nephro CKD (chronic kidney disease) (Chronic) GERD (gastroesophageal reflux disease) (Chronic) Allergic rhinitis (Chronic) Positive colorectal cancer screening using Cologuard test Varicose veins of lower extremity with inflammation Osteoarthritis Obesity Asthma (Chronic) Dulera, uses neb at least a few times per week. Rarely uses albuterol HFA. Hypertension (Chronic) Medical History UTI (urinary tract infection), uncomplicated Lymphedema To LE's - uses boot BID to help with circulation Varicose veins of both lower extremities per pt no current issues Mitral regurgitation Mild to moderate MR per 2020 ECHO Lumbosacral radiculopathy due to degenerative joint disease of spine Lumbar spinal stenosis Hx of migraines Hx: UTI (urinary tract infection) finished abx on 04/17/24, "tends to get these often" urology symptoms have since resolved- no current issues Tremor Left hand Periodic limb movement disorder Hypertension CHF (congestive heart failure) Follows with Dr. Kellogg- [place] Cardio EF 60-65% on 2020 ECHO Allergic rhinitis Asthma Dulera, uses neb at least a few times per week. Breathing stable per patient A-fib currently on eliquis; f/u dr. kellogg, [facility] Chronic cough Diverticular disease CKD (chronic kidney disease) Follows with Dr Bowling GERD (gastroesophageal reflux disease) well controlled and stable Surgical History History of total right knee replacement (TKR) 01/2019 [facility] Hx of bilateral cataract extraction S/P total knee arthroplasty Left- done 07/23/[address] Tracey Right History of tooth extraction all teeth History of esophagogastroduodenoscopy (EGD) H/O tubal ligation History of colonoscopy History of open reduction and internal fixation (ORIF) procedure left wrist--hardware in place History of total shoulder replacement RIGHT 05/08/18: Gonzalez #2, ETT #7.5, Grade 1 View Family History Sister Breast cancer Other Family history not known due to adoption Denies family history of Ovarian cancer Prostate cancer Myocardial infarction Colorectal cancer Social History Smoking Status: Never smoker Hx Alcohol Use: Yes Alcohol type: wine Alcohol Intake Frequency: Monthly or Less Hx Substance Use: No Preferred Language: Singaporean Communication Ability: Effective Visual Impairment: Limited Hearing Ability: Normal Scrubber Operator Required: No Beliefs That Will Affect Care: None marital status: Current Living Situation: Spouse current occupational status: retired How many Children do You have: 2 Feels Safe at Home: Yes Childhood Exposure to Second-Hand Smoke: Yes (Father smoked. ) Diet: regular caffeine: Yes (Coffee. ) during the past year weight has: remained stable Dental Care, Regularly: Yes Physical Activity Frequency: Does not Exercise Seatbelt Use: always Sunscreen Use: No Do you think of yourself as: straight/heterosexual Sexual Activity: has been sexually active, but not for at least 12 months Gender Identity: Female Assistive Devices: Cane, Denture - Upper, Denture - Lower, Glasses and Walker Allergies Allergies Allergy/AdvReac Type Severity Reaction Status Date / Time oxycodone [From OxyContin] Allergy Mild itchy Verified 01/21/25 08:24 Home Meds Home Medications Medication Instructions Recorded Confirmed [id number] 1 tab PO QAM 12/01/18 01/21/25 capsule (Glucosamine Complex-MSM capsule) multivitamin 1 tab PO QAM 02/21/21 01/21/25 cinacalcet 30 mg tablet (Sensipar) 30 mg PO QAM 04/15/24 01/21/25 vitamin A-vitamin C-vit E-min 1 tab PO QAM 04/15/24 01/21/25 tablet furosemide 40 mg tablet 40 mg PO BID 01/21/25 01/21/25 Previous Rx's Medication Instructions Recorded albuterol sulfate 90 mcg/actuation 2 puff inhalation Q6H PRN sob #6.7 01/03/20 aerosol inhaler grams diclofenac sodium 1 % topical gel 2 g topical QID PRN pain #100 grams 04/12/22 metoprolol tartrate 25 mg tablet 25 mg PO BID #180 tabs 02/12/24 mometasone-formoterol HFA 200 2 puff inhalation Q12H #39 grams 03/30/24 mcg-5 mcg/actuation aerosol inhaler (Dulera) ropinirole 0.25 mg tablet 0.25 mg PO QPM #90 tabs 09/14/24 montelukast 10 mg tablet 10 mg PO QAM #90 tabs 11/15/24 omeprazole 40 mg capsule,delayed 40 mg PO QAM #90 caps 11/19/24 release apixaban 5 mg tablet (Eliquis) 5 mg PO BID #200 tabs 12/02/24 gabapentin 300 mg capsule 300 mg PO BID 90 days #180 caps 01/11/25 simvastatin 20 mg tablet 20 mg PO QPM #90 tabs 01/11/25 Results & Data (ED) Vital Signs Vital Signs - 24 hr 01/21/25 02:58 01/21/25 03:08 01/21/25 03:11 Temperature 37.4 C Temperature Source Temporal Artery Scan Pulse Rate 157 H Pulse Rate from SpO2 Sensor Pulse Rhythm Regular Respiratory Rate 24 Respiratory Effort / Characteristics Non-Labored Spontaneous Spontaneous Short of Breath Respiratory Depth Normal Normal Respiratory Pattern Regular Regular Blood Pressure 149/79 H Blood Pressure Mean 102 Pulse Oximetry 88 L 91 Oxygen Delivery Method Room Air Room Air Room Air Sepsis Recent Fever Within 48 Hours No Sepsis New/Unexplained Change in Mental Status No Sepsis Action Taken by Nursing No Action Required 01/21/25 03:12 01/21/25 04:12 01/21/25 04:15 Temperature Temperature Source Pulse Rate 146 H 104 H Pulse Rate from SpO2 Sensor 107 H Pulse Rhythm Respiratory Rate 30 H Respiratory Effort / Characteristics Respiratory Depth Respiratory Pattern Blood Pressure 148/101 H Blood Pressure Mean 116 Pulse Oximetry 92 Oxygen Delivery Method Room Air Sepsis Recent Fever Within 48 Hours Sepsis New/Unexplained Change in Mental Status Sepsis Action Taken by Nursing 01/21/25 04:36 01/21/25 05:34 Temperature Temperature Source Pulse Rate 108 H 92 H Pulse Rate from SpO2 Sensor Pulse Rhythm Respiratory Rate Respiratory Effort / Characteristics Respiratory Depth Respiratory Pattern Blood Pressure 149/112 H 183/118 H Blood Pressure Mean Pulse Oximetry Oxygen Delivery Method Sepsis Recent Fever Within 48 Hours Sepsis New/Unexplained Change in Mental Status Sepsis Action Taken by Nursing Laboratory Data 01/22/25 05:33 01/22/25 05:33 Lab Results 01/21/25 01/21/25 Range/Units 03:06 03:25 WBC 12.50 H (4.8-10.8) K/ul RBC 3.38 L (4.20-5.40) M/uL Hgb 9.8 L (12.0-16.0) g/dl Hct 30.0 L (37.0-47.0) % MCV 88.8 (80.0-100.0) fL MCH 29.0 (25.0-34.0) pg MCHC 32.7 (32.0-36.0) g/dL RDW Std Deviation 50.4 H (36.4-46.3) fL RDW Coeff of Giorgi 15.6 H (11.5-14.5) % Plt Count 201 (130-400) K/uL MPV 9.7 (9.4-12.4) fL Immature Gran % (Auto) 0.6 % Neut % (Auto) 82.5 % Lymph % (Auto) 6.8 % [place] % (Auto) 9.8 % Eos % (Auto) 0.1 % Baso % (Auto) 0.2 % Neut # (Auto) 10.32 H (1.40-6.50) K/uL Lymph # (Auto) 0.85 L (1.20-3.40) K/uL [place] # (Auto) 1.22 H (0.11-0.59) K/uL Eos # (Auto) 0.01 (0.00-0.50) K/uL Baso # (Auto) 0.03 (0.00-0.20) K/uL Immature Gran # (Auto) 0.07 (0.01-0.20) K/uL PT 13.7 H (9.0-12.0) Seconds INR 1.3 H (0.9-1.1) APTT 37 H (21-31) Seconds PTT Ratio 1.4 Sodium 134 L (136-145) mmol/L Potassium 3.6 (3.5-5.1) mmol/L Chloride 100 (98-107) mmol/L Carbon Dioxide 22 (21-32) mmol/L Anion Gap 12 H (3-11) BUN 29 H (6-23) mg/dl Creatinine 1.56 H (0.6-1.2) mg/dl Est Cr Clr Drug Dosing 32.6 ml/min eGFR 33.40 BUN/Creatinine Ratio 18.6 (10-20) Glucose 110 H (70-99(Fasting)) mg/dl Calcium 8.8 (8.6-10.3) mg/dl Magnesium 1.3 L (1.7-2.4) mg/dl Total Bilirubin 0.8 (0.2-1.0) mg/dl AST 18 (13-39) U/L ALT 8 (7-52) U/L Alkaline Phosphatase 65 (34-104) U/L Troponin I High Sens 17.1 H (0-14) pg/ml B-Natriuretic Peptide 604 H (0-100) pg/ml Total Protein 7.7 (6.0-8.3) gm/dl Albumin 3.9 (3.4-5.0) gm/dl Globulin 3.8 (2.5-4.0) gm/dl Albumin/Globulin Ratio 1.0 (0.9-2) Adenovirus (PCR) Not Detected (NotDetected) B. pertussis DNA (PCR) Not Detected (NotDetected) B.parapertussis DNA PCR Not Detected (NotDetected) C. pneumoniae DNA (PCR) Not Detected (NotDetected) Coronavirus OC43 (PCR) Not Detected (NotDetected) Coronavirus HKU1 (PCR) Not Detected (NotDetected) Coronavirus 229E (PCR) Not Detected (NotDetected) SARS-CoV-2 (PCR) Not Detected (NotDetected) Coronavirus NL63 (PCR) Not Detected (NotDetected) Human Metapneumovir PCR Not Detected (NotDetected) Influenza Type A (PCR) Not Detected (NotDetected) Influenza Type B (PCR) Not Detected (NotDetected) M. pneumoniae (PCR) Not Detected (NotDetected) Parainfluenza 1 (PCR) Not Detected (NotDetected) Parainfluenza 2 (PCR) Not Detected (NotDetected) Parainfluenza 3 (PCR) Not Detected (NotDetected) Parainfluenza 4 (PCR) Not Detected (NotDetected) RSV (PCR) Not Detected (NotDetected) Entero/Rhino (PCR) Not Detected (NotDetected) Administered Medications Acetaminophen (Acetaminophen 325 Mg Tab) 650 mg PO Q4H PRN PRN Reason: Pain or Fever Stop: 02/20/25 09:01 Last Admin: 01/22/25 03:39 Dose: 650 mg Documented By: Admin: 01/21/25 20:00 Dose: 650 mg Documented By: Admin: 01/21/25 13:53 Dose: 650 mg Documented By: Albuterol (Albut/Ipratrop 3mg/0.5mg Neb 3 Ml Vial) 3 ml INH QID PRN; Protocol PRN Reason: Shortness Of Breath Stop: 02/20/25 09:01 Last Admin: 01/21/25 20:06 Dose: 3 ml Documented By: Admin: 01/21/25 13:12 Dose: 3 ml Documented By: [id number] Apixaban (Apixaban 5 Mg Tablet) 5 mg PO BID ROBERTO Stop: 02/20/25 09:29 Last Admin: 01/22/25 08:02 Dose: 5 mg Documented By: Admin: 01/21/25 20:56 Dose: 5 mg Documented By: Admin: 01/21/25 11:30 Dose: 5 mg Documented By: Benzonatate (Benzonatate 100 Mg Capsule) 200 mg PO TID PRN PRN Reason: Cough Stop: 02/20/25 21:25 Last Admin: 01/21/25 23:17 Dose: 200 mg Documented By: PACO Cinacalcet (Cinacalcet Hcl 30 Mg Tab) 30 mg PO QAM ROBERTO Stop: 02/20/25 09:01 Last Admin: 01/22/25 08:17 Dose: 30 mg Documented By: Admin: 01/21/25 11:30 Dose: 30 mg Documented By: Cyclobenzaprine HCl (Cyclobenzaprine Hcl 10 Mg Tab) 10 mg PO HS PRN PRN Reason: spasms Stop: 02/20/25 09:01 Last Admin: 01/21/25 13:53 Dose: 10 mg Documented By: MS Dextromethorphan Polymer Complex (Dextromethorphan Polymr Complx 60 Mg/10 Ml Udp) 60 mg PO Q12H PRN PRN Reason: Cough Stop: 02/21/25 02:59 Last Admin: 01/22/25 03:22 Dose: 60 mg Documented By: PACO Fluticasone/Vilanterol (Fluticasone/Vilanterol 200/25mcg 14 Puffs/Inhaler) 1 puffs INH DAILY ROBERTO Stop: 02/20/25 09:29 Last Admin: 01/22/25 08:02 Dose: 1 puffs Documented By: Admin: 01/21/25 11:30 Dose: 1 puffs Documented By: MS Gabapentin (Gabapentin 300 Mg Cap) 300 mg PO BID ROBERTO Stop: 02/20/25 09:01 Last Admin: 01/22/25 08:02 Dose: 300 mg Documented By: Admin: 01/21/25 20:56 Dose: 300 mg Documented By: Admin: 01/21/25 11:30 Dose: 300 mg Documented By: Guaifenesin (Guaifenesin 600 Mg Tabcr) 1,200 mg PO Q12 ROBERTO Stop: 02/20/25 13:14 Last Admin: 01/22/25 08:01 Dose: 1,200 mg Documented By: Admin: 01/21/25 20:57 Dose: 1,200 mg Documented By: Admin: 01/21/25 14:08 Dose: 1,200 mg Documented By: Cefepime HCl (Maxipime 2000mg) 2,000 mg in 20 mls @ 5 mls/min IV Q12H ROBERTO; Protocol Stop: 01/23/25 13:59 Last Admin: 01/22/25 01:09 Dose: 5 mls/min Documented By: Admin: 01/21/25 14:37 Dose: 5 mls/min Documented By: Lactated Ringer's (Lr) 1,000 mls @ 75 mls/hr IV .[id number] ROBERTO Stop: 01/22/25 14:14 Last Admin: 01/22/25 00:54 Dose: 75 mls/hr Documented By: Infusion: 01/22/25 00:54 Dose: Infused Documented By: Admin: 01/21/25 14:35 Dose: 75 mls/hr Documented By: Ipratropium [place] (Ipratropium [place] Neb Soln 0.02% 0.5mg/2.5ml Vial) 0.5 mg NEB Q3H PRN PRN Reason: Shortness Of Breath Or Wheezing Stop: 02/20/25 20:46 Last Admin: 01/22/25 01:31 Dose: 0.5 mg Documented By: LISA Levalbuterol HCl (Levalbuterol 1.25 Mg/3 Ml Neb) 1.25 mg NEB Q3H PRN PRN Reason: Shortness Of Breath Or Wheezing Stop: 02/20/25 20:46 Last Admin: 01/22/25 01:31 Dose: 1.25 mg Documented By: LISA Menthol (Cough Drop (Sugar Free) Alexandra 24 Alexandra/1 Box) 1 alexandra BUCCAL Q2H PRN PRN Reason: Sore Throat Stop: 02/21/25 03:01 Last Admin: 01/22/25 03:23 Dose: 1 alexandra Documented By: PACO Metoprolol Tartrate (Metoprolol Tartrate 25 Mg Tab) 25 mg PO BID ROBERTO Stop: 02/20/25 09:29 Last Admin: 01/22/25 08:02 Dose: 25 mg Documented By: Admin: 01/21/25 20:12 Dose: 25 mg Documented By: Admin: 01/21/25 11:31 Dose: Not Given Documented By: Montelukast Sodium (Montelukast Sodium 10 Mg Tablet) 10 mg PO QAM ROBERTO Stop: 02/20/25 09:01 Last Admin: 01/22/25 08:01 Dose: 10 mg Documented By: Admin: 01/21/25 11:30 Dose: 10 mg Documented By: Pantoprazole Sodium (Pantoprazole 40 Mg Tab) 40 mg PO QAM [facility] Stop: 02/21/25 08:59 Last Admin: 01/22/25 08:02 Dose: 40 mg Documented By: GALINDO Ropinirole HCl (Ropinirole Hcl 0.25 Mg Tablet) 0.25 mg PO QPM ROBERTO Stop: 02/20/25 20:59 Last Admin: 01/21/25 20:57 Dose: 0.25 mg Documented By: PACO Simvastatin (Simvastatin 20 Mg Tab) 20 mg PO QPM ROBERTO Stop: 02/20/25 20:59 Last Admin: 01/21/25 20:57 Dose: 20 mg Documented By: PACO Discontinued Medications Furosemide (Furosemide 40 Mg/4 Ml Vial) 40 mg IV ONE ONE Stop: 01/21/25 05:29 Last Admin: 01/21/25 05:38 Dose: 40 mg Documented By: Furosemide (Furosemide 40 Mg/4 Ml Vial) 40 mg IV [id number] ROBERTO Stop: 02/20/25 09:01 Last Admin: 01/21/25 11:30 Dose: Not Given Documented By: Magnesium Sulfate/Dextrose (Magnesium Sulfate / D5w) 1 gm in 100 mls @ 100 mls/hr IV Q1H ROBERTO Stop: 01/21/25 06:03 Last Infusion: 01/21/25 06:46 Dose: Infused Documented By: Admin: 01/21/25 05:35 Dose: 100 mls/hr Documented By: Infusion: 01/21/25 05:35 Dose: Infused Documented By: Admin: 01/21/25 04:36 Dose: 100 mls/hr Documented By: Magnesium Sulfate/Dextrose (Magnesium Sulfate / D5w) 1 gm in 100 mls @ 50 mls/hr IV Q2H ROBERTO Stop: 01/21/25 10:29 Last Infusion: 01/21/25 11:02 Dose: Infused Documented By: Admin: 01/21/25 09:02 Dose: 50 mls/hr Documented By: Infusion: 01/21/25 08:48 Dose: Infused Documented By: Admin: 01/21/25 06:48 Dose: 50 mls/hr Documented By: Acetaminophen (Ofirmev) 1,000 mg in 100 mls @ 400 mls/hr IV NOW STA Stop: 01/21/25 07:56 Last Infusion: 01/21/25 08:05 Dose: Infused Documented By: Admin: 01/21/25 07:47 Dose: 400 mls/hr Documented By: DAYDAY Lactated Ringer's (Lr) 250 mls @ 999 mls/hr IV .Q16M ONE Stop: 01/21/25 14:24 Last Infusion: 01/21/25 14:36 Dose: Infused Documented By: Admin: 01/21/25 14:18 Dose: 999 mls/hr Documented By: Metoprolol Tartrate (Metoprolol Tartrate 1 Mg/Ml Vial) 5 mg IV NOW STA Stop: 01/21/25 04:08 Last Admin: 01/21/25 04:36 Dose: 5 mg Documented By: Metoprolol Tartrate (Metoprolol Tartrate 1 Mg/Ml Vial) 5 mg IV NOW STA Stop: 01/21/25 07:18 Last Admin: 01/21/25 07:28 Dose: 5 mg Documented By: DAYDAY Metoprolol Tartrate (Metoprolol Tartrate 1 Mg/Ml Vial) 2.5 mg IV NOW STA Stop: 01/21/25 20:43 Last Admin: 01/21/25 20:51 Dose: 2.5 mg Documented By: PACO Imaging Data Radiologist's Impression: Chest X-Ray 01/21/25 03:07 EXAM: XR chest 1V not portable CLINICAL HISTORY: Chest pain, nonspecific TECHNIQUE: An X-ray image of the chest is obtained in AP projection. COMPARISON: prior 04/28/2024 FINDINGS: Cardiac silhouette is mildly enlarged. This has progressed. Aortic knuckle calcifications There is perihilar interstitial/vascular thickening suggestive of pulmonary edema. Perihilar airspace nodular opacities more at the left side likely represent a component of congestive change. A superimposed pneumonia cannot be excluded. No pleural effusions. No pneumothorax. A right shoulder prosthesis is again noted. Cardiomegaly with mild to moderate interstitial pulmonary edema which has progressed in the interval. Hazy perihilar airspace opacities likely representing a component of the congestive change. A superimposed pneumonia cannot be excluded. IMPRESSION: Cardiomegaly with mild to moderate interstitial pulmonary edema which has progressed in the interval. Perihilar nodular airspace opacities more prominent on the left, likely representing a component of the congestive change. A superimposed pneumonia cannot be excluded. Follow up is recommended Progressive findings compared to prior x ray dated 04/28/2024 Electronically signed by Liu Pereira 01-21-2025 03:38 AM Discharge Plan Visit Data Chief Complaint: Shortness of Breath/Dyspnea Stated Complaint: SOB ED Provider: Judit Diaz Discharge Problem: Acute dyspnea, Atrial fibrillation with rapid ventricular response, Hypomagnesemia, Elevated brain natriuretic peptide (BNP) level Patient Disposition: Admitted As Inpatient Discharge Instructions Interventions: ED Discharge Assessment Last Done: 01/21/25 08:38
[2025-01-21] MEDS: FUROSEMIDE 40 MG/4 ML VIAL IV ONE (05:38)
--- NOTE | 2025-01-21 05:54 | History & Physical Report ---
Date of Service January 21, 2025 Assessment & Plan (1) Acute on chronic heart failure: (2) Atrial fibrillation with rapid ventricular response: (3) Renal insufficiency: (4) Hyponatremia: (5) Hypomagnesemia: Plan 79-year-old female PMHx asthma, HTN, GERD, CKD, RLS, CHF, A-fib on Eliquis, and frequent UTIs presenting for increased SOB starting the night [employer]. ED evaluation reveals leukocytosis 12.5, H&H 9.8/30, PT/INR 13.7/1.3, APTT 37; CMP sodium 134, anion gap 12, BUN 29, creatinine 1.56, glucose 110, magnesium 1.3, troponin 17.1, BNP 604; BioFire negative CXR cardiomegaly and mild to moderate interstitial pulmonary edema which has progressed in the interval, also with perihilar nodular airspace opacities more prominent on L likely episode of comparative congestion change. Provided with metoprolol tartrate 5 mg IV x 1, magnesium sulfate 1 g, and furosemide 40 mg IV in ED. #Acute on chronic HF H/o HF, follows with HF. Presenting with SOB starting night SPIR[employer]; Not overly fluid overloaded on exam but elevated BNP and CXR suggestive of fluid. Dry weights 219. Chronic cough slightly worse at admission. - Daily weights standing , I+Os - Echo pending - BNP 604; CBC 12.5 no clear sounds infection, Biofire negative- consider repeat chest imaging following diuresis if no improvement in cough or ongoing leukocytosis - Troponin 17.1, pending repeat; EKG without ischemic changes- Demand related - Lasix 40mg po daily as outpatient- Change to 40mg IV daily inpatient; will adjust dose as appropriate - SCDs, domo stockings, promote leg elevation and frequent movement #Afib with RVR Seems to have resolved at time of admission. Previous history of Afib, on Eliquis. EKG on admission read ST @ 143bpm, pt asymptomatic with; does have irregularly irregular rhythm on exam. Received 1 dose Lopressor in ED. On metoprolol tartrate BID and Eliquis outpatient. - EKG arrival ST 143 bpm; slightly increased trop on admission but without chest pain - Echo pending - Mg 1.3 - Continue to monitor on telemetry #CKD/Renal insufficiency H/o CKD, follows with nephro. 2/2 chronic interstitial nephritis associated with chronic NSAID use. Of note, does have chronic UTIs. - Cr 1.56; appears to be near baseline - UA pending - No fluids given 2/2 SOB suspected to be from acute on chronic CHF - Avoid nephrotoxins - BMP am following diuresis #Hyponatremia Asymptomatic. - Na 134, glucose 110; corrected 134 - Repeat following diuresis #Hypomagnesemia Afib RVR on arrival. 2g IV replaced ED - Mg 1.3 - MgSO4 2g IV for total of 4g - BMP am #Asthma- no recent exacerbations; albuterol inhaler as needed, montelukast #GERD- Omeprazole #RLS- Ropinirole #HLD- Simvastatin #Tremor- Follows with neuro Dispo: Admit, PCU VTE prophylaxis: Eliquis This document was dictated utilizing [employer]. Please excuse any grammatical errors that may be secondary to use of this software. Admission and Anticipated Discharge Date Admission Date: 01/21/2025 History of Present Illness Chief Complaint: SOB Primary Care Provider: Sherley Jeffrey MD 79-year-old female PMHx asthma, HTN, GERD, CKD, RLS, CHF, A-fib on Eliquis, and frequent UTIs presenting for increased SOB starting the night [employer]. Patient states that she had a onset of shortness of breath that occurred the night [employer] and her notes that SOB worsened when she was laying flat. States that this is similar to an episode that happened a few years ago when she was in acute heart failure exacerbation. States that overall her weights are stable but she does notice a little bit of swelling in her legs. She is not having any chest pain or chest pressure. She is having SOB but states that it is better when she is sitting upright. Patient does have a chronic cough which is slightly exacerbated at this time, but no production of sputum. Overall denying URI symptoms, fever/chills, chest pain, palpitations, abdominal pain, N/V/D/C, LUTS, or numbness/tingling. ED evaluation reveals leukocytosis 12.5, H&H 9.8/30, PT/INR 13.7/1.3, APTT 37; CMP sodium 134, anion gap 12, BUN 29, creatinine 1.56, glucose 110, magnesium 1.3, troponin 17.1, BNP 604; BioFire negative CXR cardiomegaly and mild to moderate interstitial pulmonary edema which has progressed in the interval, also with perihilar nodular airspace opacities more prominent on L likely episode of comparative congestion change. Provided with metoprolol tartrate 5 mg IV x 1, magnesium sulfate 1 g, and furosemide 40 mg IV in ED. Please see Dr. Fritz's attestation for adjustments/additions to treatment plan. Allergies Allergy/AdvReac Type Severity Reaction Status Date / Time oxycodone [From OxyContin] Allergy Mild itchy Verified 01/19/25 15:15 Home Medications Medication Instructions Recorded Confirmed Type bruddqbdoki-mle-lmruitjdn-vitC 1 tab PO QAM 12/01/18 01/19/25 History capsule (Glucosamine Complex-MSM capsule) albuterol sulfate 90 mcg/actuation 2 puff inhalation Q6H PRN sob #6.7 01/03/20 01/19/25 Rx aerosol inhaler grams multivitamin 1 tab PO QAM 02/21/21 01/19/25 History diclofenac sodium 1 % topical gel 2 g topical QID PRN pain #100 grams 04/12/22 01/19/25 Rx cyclobenzaprine 10 mg tablet 10 mg PO HS PRN spasms #30 tabs 02/27/23 01/19/25 Rx metoprolol tartrate 25 mg tablet 25 mg PO BID #180 tabs 02/12/24 01/19/25 Rx mometasone-formoterol HFA 200 2 puff inhalation Q12H #39 grams 03/30/24 01/19/25 Rx mcg-5 mcg/actuation aerosol inhaler (Dulera) cinacalcet 30 mg tablet (Sensipar) 30 mg PO QAM 04/15/24 01/19/25 History ipratropium 0.5 mg-albuterol 3 mg 3 ml inhalation QID PRN SOB 04/15/24 01/19/25 History (2.5 mg base)/3 mL nebulization soln vitamin A-vitamin C-vit E-min 1 tab PO QAM 04/15/24 01/19/25 History tablet furosemide 40 mg tablet See Rx Instructions .Route 07/07/24 01/19/25 Rx .COMPLEX #180 tabs ropinirole 0.25 mg tablet 0.25 mg PO QPM #90 tabs 09/14/24 01/19/25 Rx montelukast 10 mg tablet 10 mg PO QAM #90 tabs 11/15/24 01/19/25 Rx omeprazole 40 mg capsule,delayed 40 mg PO QAM #90 caps 11/19/24 01/19/25 Rx release apixaban 5 mg tablet (Eliquis) 5 mg PO BID #200 tabs 12/02/24 01/19/25 Rx gabapentin 300 mg capsule 300 mg PO BID 90 days #180 caps 01/11/25 01/19/25 Rx simvastatin 20 mg tablet 20 mg PO QPM #90 tabs 01/11/25 01/19/25 Rx Past Med/Surg History Problem List Renal insufficiency Acute on chronic heart failure Elevated brain natriuretic peptide (BNP) level (Acute) Hypomagnesemia (Acute) Atrial fibrillation with rapid ventricular response (Acute) Acute dyspnea (Acute) Frequent urinary tract infections (Chronic) Bilateral leg pain Pulmonary nodule Status post lumbar spine surgery for decompression of spinal cord Spondylolisthesis at L5-S1 level Spondylolysis of lumbosacral region Scoliosis of lumbosacral region due to degenerative disease of spine in adult Periodic limb movement disorder Mixed action and resting tremor Lumbar pain Greater trochanteric pain syndrome of right lower extremity Scoliosis of lumbosacral region due to degenerative disease of spine in adult Lumbosacral spondylosis Lumbar spinal stenosis Trochanteric bursitis of right hip Lumbar radiculopathy, chronic Sciatica Lower extremity edema (Chronic) Mitral regurgitation A-fib (Acute) CHF (congestive heart failure) (Chronic) Restless leg syndrome Tremor Hypercalcemia (Acute) Follows with nephro CKD (chronic kidney disease) (Chronic) GERD (gastroesophageal reflux disease) (Chronic) Allergic rhinitis (Chronic) Positive colorectal cancer screening using Cologuard test Varicose veins of lower extremity with inflammation Osteoarthritis Obesity Asthma (Chronic) Dulera, uses neb at least a few times per week. Rarely uses albuterol HFA. Hypertension (Chronic) Medical History UTI (urinary tract infection), uncomplicated Lymphedema To LE's - uses boot BID to help with circulation Varicose veins of both lower extremities per pt no current issues Mitral regurgitation Mild to moderate MR per 2021 ECHO Lumbosacral radiculopathy due to degenerative joint disease of spine Lumbar spinal stenosis Hx of migraines Hx: UTI (urinary tract infection) finished abx on 04/17/24, "tends to get these often" urology symptoms have since resolved- no current issues Tremor Left hand Periodic limb movement disorder Hypertension CHF (congestive heart failure) Follows with Dr. Kellogg- [place] Cardio EF 60-65% on 2020 ECHO Allergic rhinitis Asthma Dulera, uses neb at least a few times per week. Breathing stable per patient A-fib currently on eliquis; f/u dr. kellogg, [facility] Chronic cough Diverticular disease CKD (chronic kidney disease) Follows with Dr Bowling GERD (gastroesophageal reflux disease) well controlled and stable Surgical History History of total right knee replacement (TKR) 01/2019 [facility] Hx of bilateral cataract extraction S/P total knee arthroplasty Left- done 07/23/[address] Tracey Right History of tooth extraction all teeth History of esophagogastroduodenoscopy (EGD) H/O tubal ligation History of colonoscopy History of open reduction and internal fixation (ORIF) procedure left wrist--hardware in place History of total shoulder replacement RIGHT 05/08/18: Gonzalez #2, ETT #7.5, Grade 1 View Family History Sister Breast cancer Other Family history not known due to adoption Denies family history of Ovarian cancer Prostate cancer Myocardial infarction Colorectal cancer Social History Smoking Status: Never smoker Second Hand Exposure: Yes (Father smoked. ); Do You Dip or Chew Tobacco: No; Hx Alcohol Use: Yes Alcohol type: wine Alcohol Intake Frequency: Monthly or Less Hx Substance Use: No Preferred Language: Lithuanian Communication Ability: Effective Visual Impairment: Limited Hearing Ability: Normal Applications Support Lead Required: No Beliefs That Will Affect Care: None marital status: Current Living Situation: Spouse current occupational status: retired How many Children do You have: 2 Feels Safe at Home: Yes Childhood Exposure to Second-Hand Smoke: Yes (Father smoked. ) Diet: regular caffeine: Yes (Coffee. ) during the past year weight has: remained stable Dental Care, Regularly: Yes Physical Activity Frequency: Does not Exercise Seatbelt Use: always Sunscreen Use: No Do you think of yourself as: straight/heterosexual Sexual Activity: has been sexually active, but not for at least 12 months Gender Identity: Female Assistive Devices: Cane, Glasses and Walker Review of Systems Review of Systems: All systems reviewed & are unremarkable except as noted in Subjective Physical Exam Physical Exam: General: No acute distress Skin: Warm and dry Head: Normocephalic, atraumatic Eyes: PERRL, conjunctivae clear, sclera non-icteric ENT: External ear and ear canal without swelling; nose atraumatic; good dentition, tongue normal appearance, pharynx normal Neck: Supple, no LAD Cardio: irregularly irregular rhythm, slightly tachycardic, no M/G/R, S1 and S2 normal Resp: Coughing, No respiratory distress, some coarse breath sounds throughout Abdomen: Soft, symmetric, nontender; No masses or hepatosplenomegaly; Bowel sounds normoactive MSK: No deformities; pulses palpable and equal; trace pitting edema BLE to delarosa. Neuro: Awake, alert; Sensation intact bilaterally; CN grossly intact Psych: Appropriate mood and affect; good judgement and insight. present in room at time of visit. Results & Data Results & Data Vital Signs (Past 12 Hours) Vital Signs Temp Pulse Resp BP Pulse Ox O2 Del Method 01/21/25 05:34 92 H 183/118 H 01/21/25 04:36 108 H 149/112 H 01/21/25 04:15 104 H 30 H 92 Room Air 01/21/25 04:12 148/101 H 01/21/25 03:12 146 H 01/21/25 03:11 91 Room Air 01/21/25 03:08 Room Air 01/21/25 02:58 37.4 C 157 H 24 149/79 H 88 L Room Air Laboratory Results 01/21/25 01/21/25 03:25 03:06 WBC 12.50 H RBC 3.38 L Hgb 9.8 L Hct 30.0 L MCV 88.8 MCH 29.0 MCHC 32.7 RDW Std Deviation 50.4 H RDW Coeff of Giorgi 15.6 H Plt Count 201 MPV 9.7 Immature Gran % (Auto) 0.6 Neut % (Auto) 82.5 Lymph % (Auto) 6.8 [place] % (Auto) 9.8 Eos % (Auto) 0.1 Baso % (Auto) 0.2 Neut # (Auto) 10.32 H Lymph # (Auto) 0.85 L [place] # (Auto) 1.22 H Eos # (Auto) 0.01 Baso # (Auto) 0.03 Immature Gran # (Auto) 0.07 PT 13.7 H INR 1.3 H APTT 37 H PTT Ratio 1.4 Sodium 134 L Potassium 3.6 Chloride 100 Carbon Dioxide 22 Anion Gap 12 H BUN 29 H Creatinine 1.56 H Est Cr Clr Drug Dosing 32.6 eGFR 33.40 BUN/Creatinine Ratio 18.6 Glucose 110 H Calcium 8.8 Magnesium 1.3 L Total Bilirubin 0.8 AST 18 ALT 8 Alkaline Phosphatase 65 Troponin I High Sens 17.1 H B-Natriuretic Peptide 604 H Total Protein 7.7 Albumin 3.9 Globulin 3.8 Albumin/Globulin Ratio 1.0 Adenovirus (PCR) Not Detected B. pertussis DNA (PCR) Not Detected B.parapertussis DNA PCR Not Detected C. pneumoniae DNA (PCR) Not Detected Coronavirus OC43 (PCR) Not Detected Coronavirus HKU1 (PCR) Not Detected Coronavirus 229E (PCR) Not Detected SARS-CoV-2 (PCR) Not Detected Coronavirus NL63 (PCR) Not Detected Human Metapneumovir PCR Not Detected Influenza Type A (PCR) Not Detected Influenza Type B (PCR) Not Detected M. pneumoniae (PCR) Not Detected Parainfluenza 1 (PCR) Not Detected Parainfluenza 2 (PCR) Not Detected Parainfluenza 3 (PCR) Not Detected Parainfluenza 4 (PCR) Not Detected RSV (PCR) Not Detected Entero/Rhino (PCR) Not Detected Diagnostic Findings Chest X-Ray 01/21/25 03:07 EXAM: XR chest 1V not portable CLINICAL HISTORY: Chest pain, nonspecific TECHNIQUE: An X-ray image of the chest is obtained in AP projection. COMPARISON: prior 04/28/2024 FINDINGS: Cardiac silhouette is mildly enlarged. This has progressed. Aortic knuckle calcifications There is perihilar interstitial/vascular thickening suggestive of pulmonary edema. Perihilar airspace nodular opacities more at the left side likely represent a component of congestive change. A superimposed pneumonia cannot be excluded. No pleural effusions. No pneumothorax. A right shoulder prosthesis is again noted. Cardiomegaly with mild to moderate interstitial pulmonary edema which has progressed in the interval. Hazy perihilar airspace opacities likely representing a component of the congestive change. A superimposed pneumonia cannot be excluded. IMPRESSION: Cardiomegaly with mild to moderate interstitial pulmonary edema which has progressed in the interval. Perihilar nodular airspace opacities more prominent on the left, likely representing a component of the congestive change. A superimposed pneumonia cannot be excluded. Follow up is recommended Progressive findings compared to prior x ray dated 04/28/2024 Electronically signed by Liu Pereira 01-21-2025 03:38 AM Medications Administered Furosemide 40 mg IV Mag sulfate 2 g IV Metoprolol tartrate 5 mgs IV ECG Additional Comments: Sinus tachycardia, LAD, LVH 143 bpm, MT 154, QRS 92, QT/QTc 292/450, PRT */-57/116 Code Status & VTE Plan Code Status Full Supervising Physician Co-Signing Physician Notes Patient seen and examined, chart reviewed, case discussed with NEGAR Little I agree with assessment and plan as documented above. In brief, patient is an 79-year-old female with history of atrial fibrillation, renal insufficiency, heart failure with preserved ejection fraction presenting with progressive cough, shortness of breath as well as orthopnea and bilateral lower extremity edema. Findings concerning for acute on chronic heart failure On physical exam patient is resting in bed, she is quite uncomfortable due to back pain. Chronic ongoing cough throughout the interview productive for clear/yellow sputum HEENT neck supple, moist mucous membranes, no JVD Heart+ S1, S2, irregular and tachycardic, no murmur/rub/gallops Lungscoarse breath sounds anteriorly, no wheeze Abdomensoft, nontender, nondistended edema of bilateral lower extremities Labs and images reviewed Assessment/plansuspect acute on chronic heart failure Diuresis with Lasix. Will change to 40 mg IV twice daily. Monitor I's and O's, daily weights electrolytes and renal function Continue metoprolol 25 mg p.o. twice daily for rate control as well as apixaban 5 mg p.o. twice daily for anticoagulation. Continue DuoNebs and albuterol as needed as well as mometasone/formoterol. Supplemental oxygen as needed Magnesium repletion Diclofenac and cyclobenzaprine as needed for back pain Remainder as above PG Care Time/CCT Total # of Minutes Spent Total Time Spent with Patient: Total time spent is greater than 50% in coordination of care (as documented) at patient's floor/unit and/or counseling patient: Coding Level of Care Code 16662 INT INP/OBS CARE 3/75MIN Diagnoses Acute on chronic heart failure I50.9 Atrial fibrillation with rapid ventricular response I48.91 Renal insufficiency N28.9 Hyponatremia E87.1 Hypomagnesemia E83.42
--- NOTE | 2025-01-21 07:32 | Hospitalist Progress Note ---
"Date of Service January 21, 2025 Assessment & Plan (1) Acute on chronic heart failure: (2) Atrial fibrillation with rapid ventricular response: (3) Renal insufficiency: (4) Hypomagnesemia: Plan Brandee is a 79F w/ PMH of asthma, HTN, GERD, CKD, RLS, CHF, AFib (on Eliquis), and recurrent UTIs who presented for increasing dyspnea and work of breathing when laying down and was admitted for management of CHF. Patient received Metoprolol 5 mg IV x 2 for elevated rate w/ underlying A Fib. She received Lasix 40 mg IV x 2 for congestive changes d/t concern for CHF. Sepsis / Pulm Source - Presented w/ increased dyspnea and coughing in PM 01/21 Presented originally for increased dyspnea/work of breathing Tachycardia and leukocytosis on arrival Biofire negative - CXR 01/21: Cardiomegaly with mild to moderate interstitial pulmonary edema which has progressed in the interval. Perihilar nodular airspace opacities more prominent on the left, likely representing a component of the congestive change. A superimposed pneumonia cannot be excluded. - CT Chest 01/21: pending radiologist read, suggestive of PNA - Has baseline asthma, had been using home albuterol w/o benefit Continue DuoNeb inpatient, add Mucinex and Pulmonary Toilet Can consider Levalbuterol if HR limiting sx control - Given clinical deterioration 01/21 PM sepsis workup initiated - Repeat CBC/CMP showing rising leukocytes and creatinine - Lactate elevated - Blood and urine cultures ordered - Cefepime 2g q8h initiated, MRSA nares negative - Provided small bolus 250 mL bolus, ongoing LR @ 75 cc/hr given underlying CHF Severe Back Pain - Patient with chronic lumbar back pain (L4-S1) a/w spinal surgeries - Now with intractable pain and new bowel/bladder incontinence - Strength and sensation intact to UE/LE, no meningeal signs - CT Abdomen Pelvis 01/21: pending radiologist read, bladder enlargement noted Obtaining PVR Potential for neurogenic bladder/correlation w/ UTIs Will place [place] if elevated PVR or ongoing sx CHF | Demand Ischemia - CXR on admission suggestive of congestive changes, BNP elevated to 600 - Mild troponin elevation w/o CP or EKG change, trend to peak - S/p Lasix IV x 2 - Patient appearing euvolemic on exam w/ worsening sx - Sepsis treatment as above w/ cautious fluids d/t underlying CHF - Home and inpatient Lasix held - CT Chest pending radiologist reading Afib with RVR - Tachycardia likely a/w sepsis/infection - Continue home Eliquis - Can consider Metoprolol IV for rates persistently > 130 if BP allows - Echo pending - Magnesium repleted - Telemetry ongoing CKD/Renal insufficiency - Creatinine rising in setting of sepsis/intravascular depletion - Avoid NSAIDS/nephrotoxic agents - Fluids as above Hyponatremia - 134, Asymptomatic Chronic: #Asthma- no recent exacerbations; albuterol inhaler as needed, montelukast #GERD- Omeprazole #RLS- Ropinirole #HLD- Simvastatin #Tremor- Follows with neuro Dispo: PCU/telemetry VTE prophylaxis: Eliquis Code: FULL Supervising Physician Co-Signing Physician Notes I personally examined the patient and verified john points of history and exam, discussed case, and agree with decision making and plan documented by Dr. Milligan. Patient developed worsening leukocytosis and elevated lactate with tachycardia and fever warranting sepsis workup. Blood cultures and urine culture pending, empiric cefepime initiated, fluids initiated. Procalcitonin elevated, troponin downtrending. CT chest suggestive of bilateral pneumonia. Oxygen requirement 2L. Monitor fluid status closely. Subjective Patient was resting comfortably upon morning evaluation. Upon repeat evaluation at 1300 patient was noted to be tachycardic and hypertensive with significant cough and low back pain. Patient notes that she has been coughing for a few days and this is feeling worse. She is tremulous and notes that she feels very cold. She denies any chest pain or pleuritic pain. She states that she does not feel short of breath but rather like she cannot stop coughing. She denies nausea or emesis, but had just eaten a small portion of lunch when the coughing began. Patient notes her primary concern is her low back pain but states that it is similar to what she has at home and that Tylenol/heat pads typically resolve it. Repeat vitals indicated a fever and K pad was contraindicated, patient agreeable to proceed with ice which provided some relief to the lumbar back pain. Patient received a nebulizer treatment, but the cough persisted. Labs were obtained and fluids, Muxinex, Tylenol, and empiric Abx were administered. Vitals signs improved within the half hour and patient noted subjective improvement. She was agreeable to proceed with further imaging of the chest and abdomen. Physical Exam Physical Exam: General: NAD, somnolent, arousable to voice Skin: Warm to touch, no rashes or lesions HEENT: NCAT, no LAD or thyromegaly, no JVD, anicteric sclera, dry mucous membranes Cardio: tachycardic, irregularly irregular, no MRG Resp: Non-labored, persistent coughing, distressed, restricted air movement, no distinct consolidation/crackles/rales Abdomen: Soft, no TTP, active BS, no masses MSK: Notable TTP lf L5-S1 junction and associated paraspinal muscles (no overlying erythema), 2+ peripheral pulses, strength and sensation intact to UE/LE, straight leg raises negative, meningeal signs negative Neuro: AO x 3 Psych: Appropriate mood and affect Results & Data Results & Data Vital Signs (Past 12 Hours) Vital Signs Temp Pulse Pulse Resp BP BP Pulse Ox 01/21/25 07:28 128 H 180/108 H 01/21/25 07:00 150 H 32 H 163/122 H 97 01/21/25 06:48 126 H 24 159/127 H 93 01/21/25 06:29 129 H 01/21/25 05:57 95 H 22 96 01/21/25 05:34 92 H 183/118 H 01/21/25 05:32 183/118 H 01/21/25 04:36 108 H 149/112 H 01/21/25 04:31 149/112 H 01/21/25 04:27 96 H 24 93 01/21/25 04:15 104 H 30 H 92 01/21/25 04:12 148/101 H 01/21/25 03:12 146 H 01/21/25 03:11 91 01/21/25 03:08 01/21/25 02:58 37.4 C 157 H 24 149/79 H 88 L O2 Del Method O2 Flow Rate 01/21/25 07:28 01/21/25 07:00 Nasal Cannula 2 01/21/25 06:48 Nasal Cannula 2 01/21/25 06:29 01/21/25 05:57 Room Air 01/21/25 05:34 01/21/25 05:32 01/21/25 04:36 01/21/25 04:31 01/21/25 04:27 Room Air 01/21/25 04:15 Room Air 01/21/25 04:12 01/21/25 03:12 01/21/25 03:11 Room Air 01/21/25 03:08 Room Air 01/21/25 02:58 Room Air Diagnostic Findings XR chest 1V not portable CLINICAL HISTORY: Chest pain, nonspecific TECHNIQUE: An X-ray image of the chest is obtained in AP projection. COMPARISON: prior 04/28/2024 FINDINGS: Cardiac silhouette is mildly enlarged. This has progressed. Aortic knuckle calcifications There is perihilar interstitial/vascular thickening suggestive of pulmonary edema. Perihilar airspace nodular opacities more at the left side likely represent a component of congestive change. A superimposed pneumonia cannot be excluded. No pleural effusions. No pneumothorax. IMPRESSION: Cardiomegaly with mild to moderate interstitial pulmonary edema which has progressed in the interval. Perihilar nodular airspace opacities more prominent on the left, likely representing a component of the congestive change. A superimposed pneumonia cannot be excluded. Follow up is recommended Progressive findings compared to prior x ray dated 04/28/2024 Resident Activity Tracking Resident Involvement: Resident Care Provided Care Provided: Adult [facility] Medicine"
[2025-01-21] MEDS: ACETAMINOPHEN 1,000 MG/100 ML VIAL IV STA (07:47)
[2025-01-21] MEDS ORDERED: POLYETHYLENE (MIRALAX) 17 GM PACK PO PRN (09:02)
[2025-01-21] MEDS ORDERED: ONDANSETRON INJ 2 MG/ML 2 ML VIAL IV PRN (09:02)
[2025-01-21] MEDS: FLUTICASONE/VILANTEROL 200/25MCG 14 PUFFS/INHALER INH SCH (11:30)
[2025-01-21] MEDS: APIXABAN 5 MG TABLET PO SCH (11:30)
[2025-01-21] MEDS: FUROSEMIDE 40 MG/4 ML VIAL IV SCH (11:30)
[2025-01-21] MEDS: CINACALCET HCL 30 MG TAB PO SCH (11:30)
[2025-01-21] MEDS: MONTELUKAST SODIUM 10 MG TABLET PO SCH (11:30)
[2025-01-21] MEDS: GABAPENTIN 300 MG CAP PO SCH (11:30)
[2025-01-21] MEDS: METOPROLOL TARTRATE 25 MG TAB PO SCH (11:31)
[2025-01-21] MEDS: ALBUT/IPRATROP 3MG/0.5MG NEB 3 ML VIAL INH PRN (13:12)
[2025-01-21] MEDS: CYCLOBENZAPRINE HCL 10 MG TAB PO PRN (13:53)
[2025-01-21] MEDS: ACETAMINOPHEN 325 MG TAB PO PRN (13:53)
[2025-01-21] MEDS: guaiFENesin 600 MG TABCR PO SCH (14:08)
[2025-01-21] MEDS: LACTATED RINGER'S 250 ML IV ONE (14:18)
[2025-01-21] MEDS: LACTATED RINGER'S 1,000 ML IV SCH (14:35)
[2025-01-21] MEDS: CEFEPIME 2000MG 2,000 MG/20 ML SYR IV SCH (14:37)
[2025-01-21 14:50] LABS: Hematocrit (blood only) 31.9 % (37.0-47.0); Hemoglobin 10.3 g/dl (12.0-16.0); Mean Corpuscular Hgb Conc 32.3 g/dL (32.0-36.0); Mean Corpuscular Volume 89.9 fL (80.0-100.0); Mean Platelet Volume 10.3 fL (9.4-12.4); Platelet Count 236 K/uL (130-400); RDW Coefficient of Variation 15.9 % (11.5-14.5); Red Blood Count 3.55 M/uL (4.20-5.40); White Blood Count 17.45 K/ul (4.8-10.8)
[2025-01-21 14:53] LABS: Albumin Level 4.1 gm/dl (3.4-5.0); BUN Creatinine Ratio 17.8 (10-20); Creatinine Clr Calc Pharmacy 31.2 ml/min; Globulin 4.2 gm/dl (2.5-4.0); Potassium 3.8 mmol/L (3.5-5.1); Total Protein 8.3 gm/dl (6.0-8.3)
[2025-01-21 15:05] LABS: Appearance Urine Clear (Clear); Bacteria Urine Automated 3+ (None Seen); Bilirubin Urine Negative (Negative); Blood Urine Trace (Negative); Cast Urine Automated 0-2 /lpf (0-2); Color Urine Yellow; Glucose Urine UA Negative (Negative); Ketones Urine Negative (Negative); Leukocyte Esterase Urine 1+ (Negative); Nitrite Urine Negative (Negative); Protein Urine 2+ (Negative); Specific Gravity Urine 1.015 (1.000-1.030); Urobilinogen Urine Negative (Negative); WBC Urine Automated 0-5 /hpf (0-5); pH Urine 5.5 (4.5-7.5)
--- NOTE | 2025-01-21 16:13 | CT Scan Report ---
CT chest diagnostic wo con CT DOSE: 1477.39 mGy.cm CLINICAL HISTORY: Eval PNA, sepsis. TECHNIQUE: Multiaxial CT images of the chest were performed without contrast. A dose lowering techni que was utilized adhering to the principles of ALARA. COMPARISON STUDY: 09/26/2024 CT scan and chest x-ray earlier today. FINDINGS: There is a large area of patchy dense consolidation superior aspect of the left lower lobe. There is patchy groundglass opacity posterior right upper lobe and superior aspect of the right lowe r lobe. There is no pleural effusion or pneumothorax. No enlarged adenopathy. No pericardial effusion . There are mitral valvular calcifications. There are coronary artery calcifications. No acute osseou s findings. IMPRESSION: Bilateral pneumonia, left greater than right. Follow-up chest CT recommended in 3 months to make sure this completely resolves without underlying pulmonary nodule. ACT 112: Positive. There are findings on this exam that require communication between the performing entity and the patient following Patient Test Result Information Act ([place] Act 112) guidelines. Electronically signed by: Miles Rosa M.D. 01/21/2025 4:11 PM
--- NOTE | 2025-01-21 16:18 | CT Scan Report ---
CT OF THE ABDOMEN AND PELVIS WITHOUT CONTRAST CLINICAL HISTORY: Back pain. Abdominal pain. Fever. Sepsis. COMPARISON STUDY: Renal ultrasound May 01, 2007. PET/CT October 20, 2024. TECHNIQUE: Axial images of the abdomen and pelvis were obtained without IV contrast. Images were revi ewed in the axial, sagittal, and coronal planes. Automated exposure control was utilized for the yamile dy. A dose lowering technique was utilized adhering to the principles of ALARA. FINDINGS: Please note that the chest CT will be reported separately. Extensive left lower lobe consol idation is better depicted on the chest CT which will be reported separately. There are trace bilater al pleural effusions. Interlobular septal thickening is present. No pneumatosis, free air or portal v enous gas is present. Evaluation of the abdomen and pelvis is suboptimal on unenhanced examination. T here are gallstones within the gallbladder without evidence for acute cholecystitis. Slight nodularit y of the liver surface is noted. Unenhanced images of the spleen, adrenal glands and pancreas are unr emarkable. There is no biliary or pancreatic ductal dilatation. Several water attenuation bilateral r enal lesions are suboptimally assessed on unenhanced exam but favor cysts. There is moderate renal co rtical thinning. There is no hydronephrosis. There is no evidence for a bowel obstruction. Note is ma de of sigmoid diverticulosis without evidence for acute diverticulitis. There is mild lumbar spine le voscoliosis. No lumbar spine fractures are present. Anterolisthesis of L5 on S1 is unchanged since pr ior PET/CT and due to bilateral L5 pars defects. Central canal and neural foramen are suboptimally as sessed given CT technique. There is moderate facet arthrosis, disc space narrowing and endplate osteo phytosis within the lumbar spine. IMPRESSION: 1. Dense left lower lobe consolidation suggestive of pneumonia, better depicted on the chest CT which will be reported separately. 2. Cardiomegaly with mild interstitial pulmonary edema. Trace bilateral pleural effusions. 3. No acute process within the abdomen or pelvis on unenhanced exam. 4. Cholelithiasis. 5. Sigmoid diverticulosis. No evidence for acute diverticulitis. 6. No bowel obstruction. ACT 112: Negative or not required by law. Electronically signed by: Franky Luciano M.D. 01/21/2025 4:15 PM
[2025-01-21 17:16] LABS: Troponin I High Sensitivity 50.9 pg/ml (0-14)
--- NOTE | 2025-01-21 17:48 | XCELERA ---
[id number]
--- NOTE | 2025-01-21 20:28 | Electrocardiogram Report ---
Test Reason : Blood Pressure : */* mmHG Vent. Rate : 143 BPM Atrial Rate : 156 BPM P-R Int : 154 ms QRS Dur : 92 ms QT Int : 292 ms P-R-T Axes : * -57 116 degrees QTcB Int : 450 ms Sinus tachycardia Left axis deviation Minimal voltage criteria for LVH, may be normal variant Abnormal ECG When compared with ECG of 28-Apr-2024 13:53, Sinus rhythm has replaced Atrial fibrillation Vent. rate has increased by 63 bpm T wave inversion now evident in Lateral leads Confirmed by Clement Kellogg ([id number]) on 01/21/2025 8:28:09 PM Referred By: REFERRED SELF Confirmed By: Clement Kellogg
--- NOTE | 2025-01-21 20:34 | Communication Note ---
Date of Service: January 21, 2025 Called by RN to bedside due to hypoxia with increased work of breathing. On arrival to bedside, patient noted to be awake, shivering, and warm to touch. Ab le to answer questions but falls asleep mid-conversation. States she is feeling fluttering in her chest, which started around the same time as her SOB. VS showing BP of 190/90 (possibly affected by generalized shaking), HR of 145, oxygen saturation of 93% with NC at 2lpm, and afebrile. EKG done at bedside and showing a-fib with RVR with rates of 160s. Patient on Eliquis 5 mg BID. Exam affected due to frequent coughing and difficulty with positioning to listen to lung bases. To auscultation, had decreased breath sounds with patient not taking very deep breaths, possible crackles in mid-lungs. No edema noted in bilateral LE. Possible that her a-fib with RVR is symptomatic and current presentation is a consequence of her rate, but also possible that this is related to current infectious process and/or pulm edema from fluids in the setting of CHF hx, and thus leading to a-fib. Since BP at the time allows it, will manage w/ Lopressor 2.5 mg IV x1 assuming the first possibility is the cause. RT also came by and gave patient a duoneb therapy (after tachycardia began, so unlikely to be the cause), but to decrease risk of recurrent/worsening tachycardia, will change to Xopenex and Ipratropium. On reassessment 2 hours later, patient laying comfortably in bed and with noted improvement in respiratory status (no longer having increased wob and O2 sat 96% w/ NC 2 lpm). Telemetry showing a-fib with rates in the 80s. BP of 109/63 at the time. Will continue to monitor. Resident Activity Tracking Resident Involvement: Resident Care Provided Care Provided: Adult Hospital Medicine
[2025-01-21] MEDS ORDERED: MAGNESIUM SULFATE / D5W 1 GM/100 ML BAG IV SCH (20:45)
--- NOTE | 2025-01-21 20:49 | Electrocardiogram Report ---
Test Reason : Blood Pressure : */* mmHG Vent. Rate : 79 BPM Atrial Rate : * BPM P-R Int : * ms QRS Dur : 108 ms QT Int : 432 ms P-R-T Axes : * -39 2 degrees QTcB Int : 495 ms Atrial fibrillation Left axis deviation Minimal voltage criteria for LVH, may be normal variant Possible Anterior infarct (cited on or before 21-Feb-2021) Abnormal ECG When compared with ECG of 21-Jan-2025 03:04, (unconfirmed) Atrial fibrillation has replaced Sinus rhythm Vent. rate has decreased by 64 bpm T wave inversion now evident in Inferior leads T wave inversion no longer evident in Lateral leads Confirmed by Clement Kellogg ([id number]) on 01/21/2025 8:49:00 PM Referred By: REFERRED SELF Confirmed By: Clement Kellogg
[2025-01-21] MEDS: SIMVASTATIN 20 MG TAB PO SCH (20:57)
[2025-01-21] MEDS: rOPINIRole HCL 0.25 MG TABLET PO SCH (20:57)
[2025-01-21] MEDS ORDERED: guaiFENesin 600 MG TABCR PO SCH (21:00)
[2025-01-21 21:02] LABS: Magnesium 2.2 mg/dl (1.7-2.4)
[2025-01-21] MEDS: BENZONATATE 100 MG CAPSULE PO PRN (23:17)
[2025-01-22] MEDS: LEVALBUTEROL 1.25 MG/3 ML NEB NEB PRN (01:31)
[2025-01-22] MEDS: IPRATROPIUM BROMIDE NEB SOLN 0.02% 0.5MG/2.5ML VIAL NEB PRN (01:31)
[2025-01-22] MEDS: DEXTROMETHORPHAN POLYMR COMPLX 60 MG/10 ML UDP PO PRN (03:22)
[2025-01-22] MEDS: COUGH DROP (SUGAR FREE) LOZ 24 LOZ/1 BOX BUCCAL PRN (03:23)
[2025-01-22 05:58] LABS: Hematocrit (blood only) 27.3 % (37.0-47.0); Hemoglobin 9.2 g/dl (12.0-16.0); Mean Corpuscular Hemoglobin 29.8 pg (25.0-34.0); Mean Corpuscular Hgb Conc 33.7 g/dL (32.0-36.0); Mean Corpuscular Volume 88.3 fL (80.0-100.0); Mean Platelet Volume 10.4 fL (9.4-12.4); Platelet Count 193 K/uL (130-400); RDW Coefficient of Variation 15.8 % (11.5-14.5); RDW Standard Deviation 50.7 fL (36.4-46.3); Red Blood Count 3.09 M/uL (4.20-5.40); White Blood Count 14.34 K/ul (4.8-10.8)
[2025-01-22 06:15] LABS: Albumin Globulin Ratio 0.9 (0.9-2); Albumin Level 3.4 gm/dl (3.4-5.0); BUN Creatinine Ratio 20.2 (10-20); Bilirubin,Total 0.7 mg/dl (0.2-1.0); Calcium 8.1 mg/dl (8.6-10.3); Creatinine Clr Calc Pharmacy 31.2 ml/min; Globulin 3.7 gm/dl (2.5-4.0); Magnesium 2.1 mg/dl (1.7-2.4); Potassium 3.5 mmol/L (3.5-5.1); Total Protein 7.1 gm/dl (6.0-8.3)
--- NOTE | 2025-01-22 07:50 | Hospitalist Progress Note ---
"Date of Service January 22, 2025 Assessment & Plan (1) Acute on chronic heart failure: (2) Atrial fibrillation with rapid ventricular response: (3) Renal insufficiency: (4) Hypomagnesemia: Plan Brandee is a 79F w/ PMH of asthma, HTN, GERD, CKD, RLS, CHF, AFib (on Eliquis), and recurrent UTIs who presented for increasing dyspnea and work of breathing when laying down and was admitted for management of CHF. Patient received Metoprolol 5 mg IV x 2 for elevated rate w/ underlying A Fib. She received Lasix 40 mg IV x 2 for congestive changes d/t concern for CHF. Sepsis / Pulm Source Bilateral Pneumonia - Presented w/ increased dyspnea and coughing in PM 01/21 Presented originally for increased dyspnea/work of breathing Tachycardia and leukocytosis on arrival Biofire negative - CXR 01/21: Cardiomegaly with mild to moderate interstitial pulmonary edema which has progressed in the interval. Perihilar nodular airspace opacities more prominent on the left, likely representing a component of the congestive change. A superimposed pneumonia cannot be excluded. - CT Chest 01/21: bilateral pneumonia present - Has baseline asthma, had been using home albuterol w/o benefit Continue DuoNeb inpatient, add Mucinex and Pulmonary Toilet Can consider Levalbuterol if HR limiting sx control - Given clinical deterioration 01/21 PM sepsis workup initiated, now clinically improving - Leukocytosis downtrending - Creatinine stable - Lactate returned to normal - Blood and urine cultures pending - Cefepime 2g q8h ongoing, MRSA nares negative - Complete 24 hours of LR 2 75 cc/hr, follow clinically Severe Back Pain - Patient with chronic lumbar back pain (L4-S1) a/w spinal surgeries - Pain now improved w/ intermittent icing and PRN Tylenol - Strength and sensation intact to UE/LE, no meningeal signs - CT Abdomen Pelvis 01/21: no acute changes CHF | Demand Ischemia - CXR on admission suggestive of congestive changes, BNP elevated to 600 - Mild troponin elevation w/o CP or EKG change, trend to peak - S/p Lasix IV x 2 - Patient appearing euvolemic on exam w/ worsening sx - Sepsis treatment as above w/ cautious fluids d/t underlying CHF - Home and inpatient Lasix held Afib with RVR - Tachycardia likely a/w sepsis/infection - Continue home Eliquis - Can consider Metoprolol IV for rates persistently > 130 if BP allows - Echo stable w/ EF 60-65% - Magnesium repleted - Telemetry ongoing CKD/Renal insufficiency - Creatinine rising in setting of sepsis/intravascular depletion - Avoid NSAIDS/nephrotoxic agents - Fluids as above Hyponatremia - 134, Asymptomatic Chronic: #Asthma- no recent exacerbations; albuterol inhaler as needed, montelukast #GERD- Omeprazole #RLS- Ropinirole #HLD- Simvastatin #Tremor- Follows with neuro Dispo: PCU/telemetry VTE prophylaxis: Eliquis Code: FULL Admission and Anticipated Discharge Date Admission Date: January 21, 2025 Supervising Physician Co-Signing Physician Notes I personally examined the patient and verified john points of history and exam, discussed case, and agree with decision making and plan documented by Dr. Milligan. Patient with clinical improvement, remains on IV cefepime for bilateral pneumonia. Lactate normalized. Sputum culture pending, Ucx poly organisms, Bcx x2 [id number]. Vital signs improved, oxygen requirement currently 3 L. Patient remains on gentle fluids, monitoring electrolytes and kidney function closely. Patient appears euvolemic at present. Consider transition to oral antibiotics tomorrow. Subjective Patient resting comfortably in bed upon arrival, noting that she feels much better this morning. Less fevers/chills sensations. Noting mild nausea, without emesis. No chest pain or dyspnea, though cough is ongoing. Patient notes that back pain is improved today. Physical Exam Physical Exam: General: NAD, pleasant, conversive Skin:No rashes, lesions, or erythema HEENT: NCAT, no LAD or thyromegaly, no JVD, anicteric sclera, MMM Cardio: RRR, normal S1/S2, no MRG Resp: Non-labored, persistent coughing, restricted air movement, LLL crackles Abdomen: Soft, no TTP, active BS, no masses Neuro: AO x 4 Psych: Appropriate mood and affect Results & Data Results & Data Vital Signs (Past 12 Hours) Vital Signs Temp Pulse Pulse Resp BP BP Pulse Ox 01/22/25 07:19 37.0 C 92 H 17 111/55 L 95 01/22/25 05:05 37.9 C H 124/71 01/22/25 03:40 39.4 C H 101 H 20 172/88 H 96 01/22/25 01:41 36.6 C 88 20 152/76 H 01/22/25 01:32 96 H 22 94 01/21/25 23:07 37.5 C 82 20 109/63 97 01/21/25 23:00 01/21/25 21:49 108 H 01/21/25 21:17 116 H 137/69 01/21/25 20:51 145 H 190/90 H 01/21/25 20:06 116 H 24 95 O2 Del Method O2 Flow Rate 01/22/25 07:19 Nasal Cannula 3 01/22/25 05:05 01/22/25 03:40 Nasal Cannula 3 01/22/25 01:41 01/22/25 01:32 Nasal Cannula 3 01/21/25 23:07 Nasal Cannula 2 01/21/25 23:00 Nasal Cannula 2 01/21/25 21:49 01/21/25 21:17 01/21/25 20:51 01/21/25 20:06 Nasal Cannula 2 Resident Activity Tracking Resident Involvement: Resident Care Provided Care Provided: Adult Hospital Medicine"
[2025-01-22] MEDS: PANTOprazole 40 MG TAB PO SCH (08:02)
[2025-01-22] MEDS: LACTATED RINGER'S 1,000 ML IV SCH (18:36)
[2025-01-22] MEDS: APIXABAN 2.5 MG TAB PO SCH (20:11)
[2025-01-23 06:01] LABS: Hematocrit (blood only) 32.5 % (37.0-47.0); Hemoglobin 10.4 g/dl (12.0-16.0); Mean Corpuscular Hemoglobin 29.5 pg (25.0-34.0); Mean Corpuscular Volume 92.3 fL (80.0-100.0); Mean Platelet Volume 10.7 fL (9.4-12.4); Platelet Count 192 K/uL (130-400); RDW Coefficient of Variation 15.9 % (11.5-14.5); Red Blood Count 3.52 M/uL (4.20-5.40); White Blood Count 10.27 K/ul (4.8-10.8)
[2025-01-23 06:13] LABS: Calcium 8.2 mg/dl (8.6-10.3); Potassium 3.7 mmol/L (3.5-5.1)
[2025-01-23 06:19] LABS: BUN Creatinine Ratio 25.2 (10-20); Creatinine Clr Calc Pharmacy 32.8 ml/min
--- NOTE | 2025-01-23 16:56 | Hospitalist Progress Note ---
Date of Service January 23, 2025 Assessment & Plan (1) Acute on chronic heart failure: (2) Atrial fibrillation with rapid ventricular response: (3) Renal insufficiency: (4) Hypomagnesemia: Plan Brandee is a 79F w/ PMH of asthma, HTN, GERD, CKD, RLS, CHF, AFib (on Eliquis), and recurrent UTIs who presented for increasing dyspnea and work of breathing when laying down and was admitted for management of CHF. Patient received Metoprolol 5 mg IV x 2 for elevated rate w/ underlying A Fib. She received Lasix 40 mg IV x 2 for congestive changes d/t concern for CHF. Sepsis 12/05 Pulm Source Bilateral Pneumonia - Presented w/ increased dyspnea and coughing Tachycardia and leukocytosis on arrival Biofire negative - CXR 01/21: Cardiomegaly with mild to moderate interstitial pulmonary edema which has progressed in the interval. Perihilar nodular airspace opacities more prominent on the left, likely representing a component of the congestive change. A superimposed pneumonia cannot be excluded. - CT Chest 01/21: bilateral pneumonia present -Started on empiric IV cefepime -Some improvement in shortness of breath Continue Levalbuterol add Mucinex and Pulmonary Toilet Severe Back Pain - Patient with chronic lumbar back pain (L4-S1) a/w spinal surgeries - Pain now improved w/ intermittent icing and PRN Tylenol - Strength and sensation intact to UE/LE, no meningeal signs - CT Abdomen Pelvis 01/21: no acute changes CHF Excaerbation - CXR on admission suggestive of congestive changes, BNP elevated to 600 - Mild troponin elevation w/o CP or EKG change, trend to peak - Will continue IV Lasix 40mg daily - Monitor I/O, daily weights Afib with RVR - Tachycardia likely a/w sepsis/infection - Continue home Eliquis - Can consider Metoprolol IV for rates persistently > 130 if BP allows - Echo stable w/ EF 60-65% - Magnesium repleted - Telemetry ongoing CKD/Renal insufficiency - Creatinine rising in setting of sepsis/intravascular depletion - Avoid NSAIDS/nephrotoxic agents - Fluids as above Hyponatremia - 134, Asymptomatic Chronic: #Asthma- no recent exacerbations; albuterol inhaler as needed, montelukast #GERD- Omeprazole #RLS- Ropinirole #HLD- Simvastatin #Tremor- Follows with neuro Dispo: PCU/telemetry VTE prophylaxis: Eliquis Code: FULL Admission and Anticipated Discharge Date Admission Date: January 21, 2025 Subjective patient seen and examined, still a little short of breath Review of Systems Review of Systems: All systems reviewed are negative, apart from the ones contained in the history. Physical Exam Physical Exam: The patient is awake, alert and oriented 3, well developed and well nourished, normocephalic and atraumatic, lying in bed and in no acute distress. HEENT--PERRL, EOMI, mucous membranes and oropharynx mildly dry Neck--supple. No JVD. No bruits. Thyroid normal, trachea midline, no adenopathy. Heart--normal S1 and S2. No murmurs, rubs or gallops. Lungs--clear bilaterally, no respiratory distress, no accessory muscle use. Abdomen--normal bowel sounds and soft. Extremities--no cyanosis or clubbing. No edema. Dermatologic--normal skin turgor, normal color, no abnormal lymph nodes, no rash. Neurologic--cranial nerves II through XII grossly intact. Rheumatologic--normal range of motion. Psychiatric--normal affect. Results & Data Results & Data Vital Signs (Past 12 Hours) Vital Signs Temp Pulse Pulse Resp BP Pulse Ox O2 Del Method 01/23/25 15:58 97.9 F 82 20 154/83 H 98 Nasal Cannula 01/23/25 15:00 80 01/23/25 11:54 98.1 F 76 18 134/77 98 Room Air 01/23/25 09:00 Nasal Cannula 01/23/25 07:52 98.2 F 93 H 17 182/75 H 98 Nasal Cannula 01/23/25 05:33 88 18 98 Nasal Cannula O2 Flow Rate 01/23/25 15:58 3 01/23/25 15:00 01/23/25 11:54 01/23/25 09:00 01/23/25 07:52 3 01/23/25 05:33 4 PG Care Time/CCT Total # of Minutes Spent Total Time Spent with Patient: Total time spent is greater than 50% in coordination of care (as documented) at patient's floor/unit and/or counseling patient: Coding Level of Care Code 82468 SUB INP/OBS CARE 2/35MIN Diagnoses Acute on chronic heart failure I50.9 Atrial fibrillation with rapid ventricular response I48.91 Renal insufficiency N28.9 Hypomagnesemia E83.42 Time Spent (min) 35
[2025-01-23] MEDS: MoRPHine SULFATE 2 MG/ML CARP IV STA (17:20)
[2025-01-23] MEDS: FUROSEMIDE 40 MG/4 ML VIAL IV ONE (17:20)
--- NOTE | 2025-01-23 17:20 | XRay Report ---
Chest radiograph, one view History: Shortness of breath Comparison: January 21, 2025 Findings: Single AP view of the chest performed. No focal consolidation or pleural effusion. No pneumothorax. The cardiac silhouette appears enlarged. There is prominence of the pulmonary vascularity. No evidence for lymphadenopathy. No visualized bony or soft tissue abnormality. Reverse right shoulder arthroplasty. Impression: Cardiomegaly. Increased prominence of the pulmonary vasculature again seen suggesting pulmonary venous hypertension. Electronically signed by Clement Beltran 01-23-2025 5:20 PM
[2025-01-23] MEDS: CEFEPIME 2000MG 2,000 MG/20 ML SYR IV SCH (18:13)
[2025-01-23] MEDS: MELATONIN 3 MG TAB PO PRN (21:31)
[2025-01-24 06:08] LABS: Hematocrit (blood only) 28.9 % (37.0-47.0); Hemoglobin 9.4 g/dl (12.0-16.0); Mean Corpuscular Hemoglobin 29.1 pg (25.0-34.0); Mean Corpuscular Hgb Conc 32.5 g/dL (32.0-36.0); Mean Corpuscular Volume 89.5 fL (80.0-100.0); Mean Platelet Volume 10.9 fL (9.4-12.4); Platelet Count 198 K/uL (130-400); RDW Coefficient of Variation 15.3 % (11.5-14.5); RDW Standard Deviation 50.3 fL (36.4-46.3); Red Blood Count 3.23 M/uL (4.20-5.40); White Blood Count 8.17 K/ul (4.8-10.8)
[2025-01-24 06:31] LABS: Calcium 7.9 mg/dl (8.6-10.3); Creatinine Clr Calc Pharmacy 30.1 ml/min; Potassium 3.4 mmol/L (3.5-5.1)
[2025-01-24] MEDS: ALUMINUM/MAGNESIUM/SIMETH (MAALOX MAX) 30 ML UDC ONE (07:29)
[2025-01-24] MEDS: MoRPHine SULFATE 2 MG/ML CARP IV STA (08:45)
[2025-01-24] MEDS: FUROSEMIDE 40 MG/4 ML VIAL IV ONE (08:48)
[2025-01-24] MEDS: POTASSIUM CHLORIDE CRTAB 20 MEQ TABCR PO STA (08:48)
[2025-01-24] MEDS: hydrALAZINE HCL 20 MG/ML VIAL IV ONE (08:51)
--- NOTE | 2025-01-24 12:30 | Hospitalist Progress Note ---
Date of Service January 24, 2025 Assessment & Plan (1) Acute on chronic heart failure: (2) Atrial fibrillation with rapid ventricular response: (3) Renal insufficiency: (4) Hypomagnesemia: Plan Brandee is a 79F w/ PMH of asthma, HTN, GERD, CKD, RLS, CHF, AFib (on Eliquis), and recurrent UTIs who presented for increasing dyspnea and work of breathing when laying down and was admitted for management of CHF. Patient received Metoprolol 5 mg IV x 2 for elevated rate w/ underlying A Fib. She received Lasix 40 mg IV x 2 for congestive changes d/t concern for CHF. Sepsis / Pulm Source Bilateral Pneumonia - Presented w/ increased dyspnea and coughing -Tachycardia and leukocytosis on arrival -Biofire negative - CXR 01/21: Cardiomegaly with mild to moderate interstitial pulmonary edema which has progressed in the interval. Perihilar nodular airspace opacities more prominent on the left, likely representing a component of the congestive change. A superimposed pneumonia cannot be excluded. - CT Chest 01/21: bilateral pneumonia present -Started on empiric IV cefepime -Some improvement in shortness of breath, but appears anxious and with minimal air hunger Continue Levalbuterol add Mucinex and Pulmonary Toilet Severe Back Pain - Patient with chronic lumbar back pain (L4-S1) a/w spinal surgeries - Pain now improved w/ intermittent icing and PRN Tylenol - Strength and sensation intact to UE/LE, no meningeal signs - CT Abdomen Pelvis 01/21: no acute changes CHF Excaerbation - CXR on admission suggestive of congestive changes, BNP elevated to 600 -some crackles on exam - Mild troponin elevation w/o CP or EKG change, trend to peak - Will continue IV Lasix 40mg daily (although renal function is declining) - Monitor I/O, daily weights Afib with RVR - rate under better control - Continue home Eliquis - Can consider Metoprolol IV for rates persistently > 130 if BP allows - Echo stable w/ EF 60-65% - Magnesium repleted - Telemetry ongoing CKD/Renal insufficiency - Creatinine rising in setting of sepsis/intravascular depletion - Avoid NSAIDS/nephrotoxic agents -Follows up nephrology outpatient Hyponatremia - hyponatremia, from CHF -Monitor, fluif restriction to 1500cc/day Chronic: #Asthma- no recent exacerbations; albuterol inhaler as needed, montelukast #GERD- Omeprazole #RLS- Ropinirole, increase to 0.5mg BID #HLD- Simvastatin #Tremor- Follows with neuro Dispo: PCU/telemetry VTE prophylaxis: Jessica Code: FULL Admission and Anticipated Discharge Date Admission Date: January 21, 2025 Subjective patient seen and examined, she appears anxious, but saturating 96% on room air Review of Systems Review of Systems: All systems reviewed are negative, apart from the ones contained in the history. Physical Exam Physical Exam: The patient is awake, alert and oriented 3, well developed and well nourished, normocephalic and atraumatic, lying in bed and in no acute distress. HEENT--PERRL, EOMI, mucous membranes and oropharynx mildly dry Neck--supple. No JVD. No bruits. Thyroid normal, trachea midline, no adenopathy. Heart--normal S1 and S2. No murmurs, rubs or gallops. Lungs--clear bilaterally, no respiratory distress, no accessory muscle use. Abdomen--normal bowel sounds and soft. Extremities--no cyanosis or clubbing. No edema. Dermatologic--normal skin turgor, normal color, no abnormal lymph nodes, no rash. Neurologic--cranial nerves II through XII grossly intact. Rheumatologic--normal range of motion. Psychiatric--normal affect. Results & Data Results & Data Vital Signs (Past 12 Hours) Vital Signs Temp Pulse Pulse Resp BP Pulse Ox Pulse Ox 01/24/25 11:47 97 01/24/25 10:55 97.7 F 71 20 154/87 H 96 01/24/25 10:20 88 140/59 L 97 01/24/25 09:01 83 155/93 H 01/24/25 08:50 98 H 176/80 H 01/24/25 07:50 97.3 F L 93 H 24 181/84 H 96 01/24/25 07:45 01/24/25 07:00 76 01/24/25 03:20 97.3 F L 80 16 151/86 H 92 O2 Del Method O2 Flow Rate O2 Flow Rate 01/24/25 11:47 0 01/24/25 10:55 Room Air 01/24/25 10:20 Nasal Cannula 0.5 01/24/25 09:01 01/24/25 08:50 01/24/25 07:50 Nasal Cannula 1 01/24/25 07:45 Nasal Cannula 1 01/24/25 07:00 01/24/25 03:20 Nasal Cannula 3 PG Care Time/CCT Total # of Minutes Spent Total Time Spent with Patient: Total time spent is greater than 50% in coordination of care (as documented) at patient's floor/unit and/or counseling patient: Coding Level of Care Code 20111 SUB INP/OBS CARE 2/35MIN Diagnoses Acute on chronic heart failure I50.9 Atrial fibrillation with rapid ventricular response I48.91 Renal insufficiency N28.9 Hypomagnesemia E83.42 Time Spent (min) 35
[2025-01-24] MEDS: cefUROXime axetil 500 MG TAB PO SCH (22:05)
[2025-01-24] MEDS: rOPINIRole HCL 1 MG TABLET PO SCH (22:08)
[2025-01-25 09:33] LABS: Calcium 8.6 mg/dl (8.6-10.3); Potassium 3.8 mmol/L (3.5-5.1)
[2025-01-25 09:39] LABS: BUN Creatinine Ratio 27.6 (10-20)
[2025-01-25] MEDS: amLODIPine BESYLATE 5 MG TAB PO SCH (10:04)
--- NOTE | 2025-01-25 10:24 | Hospitalist Progress Note ---
Date of Service January 25, 2025 Assessment & Plan (1) Acute on chronic heart failure: (2) Atrial fibrillation with rapid ventricular response: (3) Renal insufficiency: (4) Hypomagnesemia: Plan Brandee is a 79F w/ PMH of asthma, HTN, GERD, CKD, RLS, CHF, AFib (on Eliquis), and recurrent UTIs who presented for increasing dyspnea and work of breathing when laying down and was admitted for management of CHF. Patient received Metoprolol 5 mg IV x 2 for elevated rate w/ underlying A Fib. She received Lasix 40 mg IV x 2 for congestive changes d/t concern for CHF. Sepsis / Pulm Source Bilateral Pneumonia - Presented w/ increased dyspnea and coughing -Tachycardia and leukocytosis on arrival -Biofire negative - CXR 01/21: Cardiomegaly with mild to moderate interstitial pulmonary edema which has progressed in the interval. Perihilar nodular airspace opacities more prominent on the left, likely representing a component of the congestive change. A superimposed pneumonia cannot be excluded. - CT Chest 01/21: bilateral pneumonia present -Started on empiric IV cefepime, Transition to p.o. cefuroxime -Patient is clinically much improved, shortness of breath is much improved. -Saturating well on room air Severe Back Pain - Patient with chronic lumbar back pain (L4-S1) a/w spinal surgeries - Pain now improved w/ intermittent icing and PRN Tylenol - Strength and sensation intact to UE/LE, no meningeal signs - CT Abdomen Pelvis 01/21: no acute changes CHF Excaerbation - CXR on admission suggestive of congestive changes, BNP elevated to 600 -some crackles on exam - Mild troponin elevation w/o CP or EKG change, trend to peak - Will continue IV Lasix 40mg daily (although renal function is declining) - Monitor I/O, daily weights Afib with RVR - rate under better control - Continue home Eliquis - Can consider Metoprolol IV for rates persistently > 130 if BP allows - Echo stable w/ EF 60-65% - Magnesium repleted - Telemetry ongoing CKD/Renal insufficiency - Creatinine rising in setting of sepsis/intravascular depletion - Avoid NSAIDS/nephrotoxic agents -Follows up nephrology outpatient Hyponatremia - hyponatremia, from CHF -Monitor, fluid restriction to 1500cc/day -Some improvement in serum hyponatremia, sodium today 127 up from 125 Chronic: #Asthma- no recent exacerbations; albuterol inhaler as needed, montelukast #GERD- Omeprazole #RLS- Ropinirole, increase to 0.5mg BID #HLD- Simvastatin #Tremor- Follows with neuro Dispo: PCU/telemetry VTE prophylaxis: Lilyquis Code: FULL Disposition: Awaiting physical therapy evaluation Admission and Anticipated Discharge Date Admission Date: January 21, 2025 Subjective patient seen and examined, She is set up in the chair, complains of mild left leg pain, by the bedside,Says she feels much improved Review of Systems Review of Systems: All systems reviewed are negative, apart from the ones contained in the history. Physical Exam Physical Exam: The patient is awake, alert and oriented 3, well developed and well nourished, normocephalic and atraumatic, lying in bed and in no acute distress. HEENT--PERRL, EOMI, mucous membranes and oropharynx mildly dry Neck--supple. No JVD. No bruits. Thyroid normal, trachea midline, no adenopathy. Heart--normal S1 and S2. No murmurs, rubs or gallops. Lungs--clear bilaterally, no respiratory distress, no accessory muscle use. Abdomen--normal bowel sounds and soft. Extremities--no cyanosis or clubbing. No edema. Dermatologic--normal skin turgor, normal color, no abnormal lymph nodes, no rash. Neurologic--cranial nerves II through XII grossly intact. Rheumatologic--normal range of motion. Psychiatric--normal affect. Results & Data Results & Data Vital Signs (Past 12 Hours) Vital Signs Temp Pulse Pulse Resp BP Pulse Ox O2 Del Method 01/25/25 07:40 Room Air 01/25/25 07:22 97.7 F 71 22 184/83 H 96 Room Air 01/25/25 02:52 72 01/25/25 02:23 97.7 F 69 18 158/97 H 96 Room Air 01/25/25 00:09 97.9 F 73 16 136/82 97 Room Air 01/24/25 23:31 Room Air PG Care Time/CCT Total # of Minutes Spent Total Time Spent with Patient: Total time spent is greater than 50% in coordination of care (as documented) at patient's floor/unit and/or counseling patient: Coding Level of Care Code 48531 SUB INP/OBS CARE 2/35MIN Diagnoses Acute on chronic heart failure I50.9 Atrial fibrillation with rapid ventricular response I48.91 Renal insufficiency N28.9 Hypomagnesemia E83.42 Time Spent (min) 35
[2025-01-25] MEDS: ALPRAZolam 0.5 MG TABLET PO STA (17:53)
[2025-01-25] MEDS: ACETAMINOPHEN 1,000 MG/100 ML VIAL IV PRN (20:20)
--- NOTE | 2025-01-25 21:26 | CT Scan Report ---
Exam(s): CT HEAD Without Contrast EXAM: CT Head Without Intravenous Contrast CLINICAL HISTORY: Reason for exam: encephalopathy. TECHNIQUE: Axial computed tomography images of the head/brain without intravenous contrast. CTDI is 66.65 mGy and DLP is 1924.57 mGy-cm. Automated exposure control was utilized for the study. A dose lowering technique was utilized adhering to the principles of ALARA. COMPARISON: No relevant prior studies available. FINDINGS: Brain: Age-related parenchymal volume loss. Mild chronic small vessel ischemic change. Harkins-white matter differentiation maintained. No hemorrhage, mass effect, parenchymal edema, or midline shift. Ventricles: No hydrocephalus. Bones/joints: No acute fracture. Soft tissues: Unremarkable. Vasculature: Intracranial atherosclerosis. Sinuses: Unremarkable as visualized. Mastoid air cells: No significant mastoid effusion. Orbits: Lens replacements. IMPRESSION: No acute intracranial process. Electronically signed by: Enoch Mcguire M.D. 01/25/25 21:25 PM
--- NOTE | 2025-01-25 21:40 | CT Scan Report ---
Exam(s): CT L SPINE EXAM: CT Lumbar Spine Without Intravenous Contrast CLINICAL HISTORY: Reason for exam: AMS, c/o lower back pain. TECHNIQUE: Axial computed tomography images of the lumbar spine without intravenous contrast. CTDI is 46.12 mGy and DLP is 1229.39 mGy-cm. Automated exposure control was utilized for the study. A dose lowering technique was utilized adhering to the principles of ALARA. COMPARISON: No relevant prior studies available. FINDINGS: Bones are demineralized. There is levoscoliosis of the lumbar spine. There is preservation of vertebral body height. There is no evidence of acute fracture or traumatic subluxation. There is multilevel disc degeneration, severe at L5-S1. There are bilateral pars defects at L5 with grade 2 spondylolisthesis. L1-L2: Mild disc degeneration with vacuum disc. Mild facet degeneration. Disc bulge mildly narrows the spinal canal. Right fremitus patent. Mild left foraminal narrowing. L2-L3: Moderate disc degeneration with vacuum disc. Facet degeneration. Disc bulge mildly narrowing the spinal canal. Moderate right foraminal narrowing. Left foramen is patent. L3-L4: Moderate disc degeneration with vacuum disc. Facet degeneration and ligamentum flavum thickening. Disc bulging. Moderate canal stenosis. Severe bilateral foraminal narrowing. L4-L5: Mild disc degeneration with vacuum disc. Facet degeneration and ligamentum flavum thickening. Disc bulging. Right hemilaminectomy at this level. Mild canal stenosis. Severe right and moderate-severe left foraminal narrowing. L5-S1: Severe disc degeneration with vacuum disc. Facet degeneration and ligamentum flavum thickening. Pars defects with grade 2 spondylolisthesis. Mild canal stenosis. Severe bilateral foraminal narrowing. Sacroiliac joints are congruent, both demonstrating mild degenerative change. There is no evidence of acute sacral fracture is visualized. Aorta is calcified but normal in caliber. IMPRESSION: 1. No acute osseous findings. 2. Levoscoliosis of the spine, multilevel disc and facet degeneration, and pars defects at L5 with grade 2 spondylolisthesis. 3. Varying degrees of multilevel spinal canal and foraminal narrowing, further detailed above. Electronically signed by: Enoch Mcguire M.D. 01/25/25 21:39 PM
[2025-01-25] MEDS: MoRPHine SULFATE 2 MG/ML CARP IV STA (21:46)
[2025-01-26 06:40] LABS: BUN Creatinine Ratio 35.2 (10-20); C Reactive Protein 14.07 mg/dl (0-0.5); Calcium 8.4 mg/dl (8.6-10.3); Creatinine Clr Calc Pharmacy 39.8 ml/min; Potassium 3.4 mmol/L (3.5-5.1)
[2025-01-26] MEDS: DICLOFENAC SOD 1% GEL 100 GM TUBE EXT PRN (09:17)
[2025-01-26] MEDS: SODIUM CHLORIDE 0.9% 1,000 ML IV SCH (09:50)
[2025-01-26] MEDS: POTASSIUM CHLORIDE CRTAB 20 MEQ TABCR PO STA (09:54)
--- NOTE | 2025-01-26 10:23 | Hospitalist Progress Note ---
Date of Service January 26, 2025 Assessment & Plan (1) Acute on chronic heart failure: (2) Atrial fibrillation with rapid ventricular response: (3) Renal insufficiency: (4) Hypomagnesemia: (5) Acute kidney injury superimposed on CKD: (6) Sepsis: Plan Brandee is a 79F w/ PMH of asthma, HTN, GERD, CKD, RLS, CHF, AFib (on Eliquis), and recurrent UTIs who presented for increasing dyspnea and work of breathing when laying down and was admitted for management of CHF. Patient received Metoprolol 5 mg IV x 2 for elevated rate w/ underlying A Fib. She received Lasix 40 mg IV x 2 for congestive changes d/t concern for CHF. Sepsis / Pulm Source Bilateral Pneumonia - Presented w/ increased dyspnea and coughing -Tachycardia and leukocytosis on arrival -Biofire negative - CXR 01/21: Cardiomegaly with mild to moderate interstitial pulmonary edema which has progressed in the interval. Perihilar nodular airspace opacities more prominent on the left, likely representing a component of the congestive change. A superimposed pneumonia cannot be excluded. - CT Chest 01/21: bilateral pneumonia present -Started on empiric IV cefepime, Transition to p.o. cefuroxime -Patient is clinically much improved, shortness of breath is much improved. -Saturating well on room air Severe Back Pain - Patient with chronic lumbar back pain (L4-S1) a/w spinal surgeries - Pain now improved w/ intermittent icing and PRN Tylenol - Strength and sensation intact to UE/LE, no meningeal signs - CT Abdomen Pelvis 01/21: no acute changes Acute CHF Exacerbation w P EF - CXR on admission suggestive of congestive changes, BNP elevated to 600 -some crackles on exam -Last ECHO EF 60-65% - Mild troponin elevation w/o CP or EKG change, trend to peak - Will hold lasix - Monitor I/O, daily weights Afib with RVR - rate under better control - Continue home Eliquis - Can consider Metoprolol IV for rates persistently > 130 if BP allows - Echo stable w/ EF 60-65% - Magnesium repleted - Telemetry ongoing CKD/Renal insufficiency - HOLLY on CKD stage 3 -Creatinine rising in setting of sepsis/intravascular depletion - Avoid NSAIDS/nephrotoxic agents -Follows up nephrology outpatient Hyponatremia - hyponatremia, from CHF -Monitor, fluid restriction to 1500cc/day -Some improvement in serum hyponatremia, sodium today 130 up from 125 Acute encephalopathy Most likely due to medications, will discontinue morphine Chronic: #Asthma- no recent exacerbations; albuterol inhaler as needed, montelukast #GERD- Omeprazole #RLS- Ropinirole, increase to 0.5mg BID #HLD- Simvastatin #Tremor- Follows with neuro Dispo: PCU/telemetry VTE prophylaxis: Jessica Code: FULL Disposition: Awaiting physical therapy evaluation Admission and Anticipated Discharge Date Admission Date: January 21, 2025 Subjective patient seen and examined, She is lethargic Review of Systems Review of Systems: All systems reviewed are negative, apart from the ones contained in the history. Physical Exam Physical Exam: The patient is awake, alert and oriented 3, well developed and well nourished, normocephalic and atraumatic, lying in bed and in no acute distress. HEENT--PERRL, EOMI, mucous membranes and oropharynx mildly dry Neck--supple. No JVD. No bruits. Thyroid normal, trachea midline, no adenopathy. Heart--normal S1 and S2. No murmurs, rubs or gallops. Lungs--clear bilaterally, no respiratory distress, no accessory muscle use. Abdomen--normal bowel sounds and soft. Extremities--no cyanosis or clubbing. No edema. Dermatologic--normal skin turgor, normal color, no abnormal lymph nodes, no rash. Neurologic--cranial nerves II through XII grossly intact. Rheumatologic--normal range of motion. Psychiatric--normal affect. Results & Data Results & Data Vital Signs (Past 12 Hours) Vital Signs Temp Pulse Pulse Resp BP Pulse Ox O2 Del Method 01/26/25 07:54 73 01/26/25 07:16 97.5 F L 87 20 175/78 H 99 Room Air 01/26/25 03:49 97.9 F 68 20 158/82 H 99 Room Air 01/25/25 23:06 73 PG Care Time/CCT Total # of Minutes Spent Total Time Spent with Patient: Total time spent is greater than 50% in coordination of care (as documented) at patient's floor/unit and/or counseling patient: Coding Level of Care Code 24931 SUB INP/OBS CARE 2/35MIN Diagnoses Acute on chronic heart failure I50.9 Atrial fibrillation with rapid ventricular response I48.91 Renal insufficiency N28.9 Hypomagnesemia E83.42 Acute kidney injury superimposed on CKD N17.9; N18.9 Sepsis A41.9 Time Spent (min) 35
[2025-01-26] MEDS ORDERED: HYDROCORTISONE 1% CRM 30 GM TUBE EXT PRN (12:49)
--- NOTE | 2025-01-26 13:28 | Electrocardiogram Report ---
Test Reason : Blood Pressure : */* mmHG Vent. Rate : 160 BPM Atrial Rate : * BPM P-R Int : * ms QRS Dur : 90 ms QT Int : 272 ms P-R-T Axes : * -49 117 degrees QTcB Int : 443 ms Poor data quality, interpretation may be adversely affected Atrial fibrillation with rapid ventricular response Left axis deviation Septal infarct Abnormal ECG When compared with ECG of 21-Jan-2025 11:40, Significant changes have occurred Confirmed by Jovi Alvarado ([id number]) on 01/26/2025 1:28:39 PM Referred By: REFERRED SELF Confirmed By: Jovi Alvarado
[2025-01-27 06:13] LABS: Mean Corpuscular Hemoglobin 28.9 pg (25.0-34.0); Mean Corpuscular Hgb Conc 32.3 g/dL (32.0-36.0); Mean Corpuscular Volume 89.6 fL (80.0-100.0); Mean Platelet Volume 10.7 fL (9.4-12.4); Nucleated RBC # (auto) 0.06 K/uL (0.00-0.12); Nucleated RBC % (auto) 0.7 %; Platelet Count 242 K/uL (130-400); RDW Coefficient of Variation 15.8 % (11.5-14.5); Red Blood Count 3.46 M/uL (4.20-5.40); White Blood Count 9.18 K/ul (4.8-10.8)
[2025-01-27 06:15] LABS: Calcium 8.6 mg/dl (8.6-10.3); Potassium 3.4 mmol/L (3.5-5.1)
[2025-01-27 06:21] LABS: BUN Creatinine Ratio 29.2 (10-20); C Reactive Protein 12.39 mg/dl (0-0.5); Creatinine Clr Calc Pharmacy 42.4 ml/min
--- NOTE | 2025-01-27 09:36 | Hospitalist Progress Note ---
Date of Service January 27, 2025 Assessment & Plan (1) Acute on chronic heart failure: (2) Atrial fibrillation with rapid ventricular response: (3) Renal insufficiency: (4) Hypomagnesemia: (5) Acute kidney injury superimposed on CKD: (6) Sepsis: (7) Physical deconditioning: Plan Brandee is a 79F w/ PMH of asthma, HTN, GERD, CKD, RLS, CHF, AFib (on Eliquis), and recurrent UTIs who presented for increasing dyspnea and work of breathing when laying down and was admitted for management of CHF. Patient received Metoprolol 5 mg IV x 2 for elevated rate w/ underlying A Fib. She received Lasix 40 mg IV x 2 for congestive changes d/t concern for CHF. Sepsis / Pulm Source Bilateral Pneumonia - Sepsis is improving -Biofire negative - CXR 01/21: Cardiomegaly with mild to moderate interstitial pulmonary edema which has progressed in the interval. Perihilar nodular airspace opacities more prominent on the left, likely representing a component of the congestive change. A superimposed pneumonia cannot be excluded. - CT Chest 01/21: bilateral pneumonia present -Completed IV cefepime, Transitioned to PO Augmentin -Patient is clinically much improved, shortness of breath is much improved. -Saturating well on room air -WBC is trending down, CRP also trending down Severe Back Pain - Patient with chronic lumbar back pain (L4-S1) a/w spinal surgeries - Pain now improved w/ intermittent icing and PRN Tylenol - Strength and sensation intact to UE/LE, no meningeal signs - CT Abdomen Pelvis 01/21: no acute changes Acute CHF Exacerbation w P EF - CXR on admission suggestive of congestive changes, BNP elevated to 600 -some crackles on exam -Last ECHO EF 60-65% - Mild troponin elevation w/o CP or EKG change, trend to peak - Will hold lasix - Monitor I/O, daily weights Afib with RVR - rate under better control - Continue home Eliquis - Can consider Metoprolol IV for rates persistently > 130 if BP allows - Echo stable w/ EF 60-65% - Magnesium repleted - Telemetry ongoing CKD/Renal insufficiency - HOLLY on CKD stage 3 -Creatinine rising in setting of sepsis/intravascular depletion - Avoid NSAIDS/nephrotoxic agents -Follows up nephrology outpatient Hyponatremia - hyponatremia, from CHF -Improving fluid restriction to 1500cc/day -Some improvement in serum hyponatremia, Acute encephalopathy Most likely due to medications, CT head wnl will discontinue morphine Much improved Physical Deconditioning Will need rehab per PT Chronic: #Asthma- no recent exacerbations; albuterol inhaler as needed, montelukast #GERD- Omeprazole #RLS- Ropinirole, increase to 0.5mg BID #HLD- Simvastatin #Tremor- Follows with neuro Dispo: PCU/telemetry VTE prophylaxis: Eliquis Code: FULL Disposition: Hopefully d/c to rehab when accepted Admission and Anticipated Discharge Date Admission Date: January 21, 2025 Subjective patient seen and examined, She is lethargic Review of Systems Review of Systems: All systems reviewed are negative, apart from the ones contained in the history. Physical Exam Physical Exam: The patient is awake, alert and oriented 3, well developed and well nourished, normocephalic and atraumatic, lying in bed and in no acute distress. HEENT--PERRL, EOMI, mucous membranes and oropharynx mildly dry Neck--supple. No JVD. No bruits. Thyroid normal, trachea midline, no adenopathy. Heart--normal S1 and S2. No murmurs, rubs or gallops. Lungs--clear bilaterally, no respiratory distress, no accessory muscle use. Abdomen--normal bowel sounds and soft. Extremities--no cyanosis or clubbing. No edema. Dermatologic--normal skin turgor, normal color, no abnormal lymph nodes, no rash. Neurologic--cranial nerves II through XII grossly intact. Rheumatologic--normal range of motion. Psychiatric--normal affect. Results & Data Results & Data Vital Signs (Past 12 Hours) Vital Signs Temp Pulse Pulse Resp BP Pulse Ox O2 Del Method 01/27/25 08:14 98.1 F 77 20 161/73 H 98 Room Air 01/27/25 03:35 97.7 F 69 18 117/72 95 Room Air 01/26/25 23:59 97.9 F 65 18 126/73 97 Room Air 01/26/25 22:01 66 PG Care Time/CCT Total # of Minutes Spent Total Time Spent with Patient: Total time spent is greater than 50% in coordination of care (as documented) at patient's floor/unit and/or counseling patient: Coding Level of Care Code 47071 SUB INP/OBS CARE 2/35MIN Diagnoses Acute on chronic heart failure I50.9 Atrial fibrillation with rapid ventricular response I48.91 Renal insufficiency N28.9 Hypomagnesemia E83.42 Acute kidney injury superimposed on CKD N17.9; N18.9 Sepsis A41.9 Physical deconditioning R53.81 Time Spent (min) 35
[2025-01-27] MEDS: AMOXICILLIN/CLAVULANATE 875 MG TAB PO SCH (09:47)
[2025-01-27] MEDS: ACETAMINOPHEN 500 MG TAB PO PRN (17:59)
[2025-01-27 18:10] LABS: iSTAT Arterial Blood Gas HCO3 18 meg/L (19-24); iSTAT Arterial Blood Gas pCO2 30 mmHg (35-46); iSTAT Arterial Blood Gas pH 7.39 (7.35-7.45); iSTAT Arterial Blood Gas pO2 73 mmHg (80-95); iSTAT Carbon Dioxide 19 mmol/L (24-31); iSTAT Hematocrit 30 % (37-47); iSTAT Hemoglobin 10.2 g/dl (12.0-16.0); iSTAT Potassium 3.6 mmol/L (3.3-5.0); iSTAT Sample Type Arterial; iSTAT Sodium 134 mmol/L (135-144)
[2025-01-28 07:35] LABS: Hematocrit (blood only) 29.2 % (37.0-47.0); Hemoglobin 9.7 g/dl (12.0-16.0); Mean Corpuscular Hemoglobin 29.5 pg (25.0-34.0); Mean Corpuscular Hgb Conc 33.2 g/dL (32.0-36.0); Mean Corpuscular Volume 88.8 fL (80.0-100.0); Mean Platelet Volume 10.4 fL (9.4-12.4); Nucleated RBC # (auto) 0.06 K/uL (0.00-0.12); Nucleated RBC % (auto) 0.6 %; Platelet Count 259 K/uL (130-400); RDW Coefficient of Variation 15.9 % (11.5-14.5); RDW Standard Deviation 51.2 fL (36.4-46.3); Red Blood Count 3.29 M/uL (4.20-5.40); White Blood Count 9.36 K/ul (4.8-10.8)
[2025-01-28 07:46] LABS: C Reactive Protein 10.56 mg/dl (0-0.5); Calcium 8.6 mg/dl (8.6-10.3); Creatinine Clr Calc Pharmacy 50.9 ml/min; Potassium 3.4 mmol/L (3.5-5.1)
[2025-01-28 10:02] LABS: T4 Free Thyroxine 1.14 ng/dl (0.61-1.60)
--- NOTE | 2025-01-28 11:00 | Hospitalist Progress Note ---
Date of Service January 28, 2025 Assessment & Plan (1) Acute on chronic heart failure: (2) Atrial fibrillation with rapid ventricular response: (3) Renal insufficiency: (4) Hypomagnesemia: (5) Acute kidney injury superimposed on CKD: (6) Sepsis: (7) Physical deconditioning: Plan Brandee is a 79F w/ PMH of asthma, HTN, GERD, CKD, RLS, CHF, AFib (on Eliquis), and recurrent UTIs who presented for increasing dyspnea and work of breathing when laying down and was admitted for management of CHF. Patient received Metoprolol 5 mg IV x 2 for elevated rate w/ underlying A Fib. She received Lasix 40 mg IV x 2 for congestive changes d/t concern for CHF. Sepsis / Pulm Source Bilateral Pneumonia - Sepsis is improving -Biofire negative - CXR 01/21: Cardiomegaly with mild to moderate interstitial pulmonary edema which has progressed in the interval. Perihilar nodular airspace opacities more prominent on the left, likely representing a component of the congestive change. A superimposed pneumonia cannot be excluded. - CT Chest 01/21: bilateral pneumonia present -Completed IV cefepime, Transitioned to PO Augmentin till 02/03 -Patient is clinically much improved, shortness of breath is much improved. -Saturating well on room air -WBC is trending down, CRP also trending down Severe Back Pain - Patient with chronic lumbar back pain (L4-S1) a/w spinal surgeries - Pain now improved w/ intermittent icing and PRN Tylenol - Strength and sensation intact to UE/LE, no meningeal signs - CT Abdomen Pelvis 01/21: no acute changes Acute CHF Exacerbation w P EF - CXR on admission suggestive of congestive changes, BNP elevated to 600 -some crackles on exam -Last ECHO EF 60-65% - Mild troponin elevation w/o CP or EKG change, trend to peak - Will hold lasix - Monitor I/O, daily weights Afib with RVR - rate under better control - Continue home Eliquis - Can consider Metoprolol IV for rates persistently > 130 if BP allows - Echo stable w/ EF 60-65% - Magnesium repleted - Telemetry ongoing CKD/Renal insufficiency - HOLLY on CKD stage 3 -Creatinine rising in setting of sepsis/intravascular depletion - Avoid NSAIDS/nephrotoxic agents -Follows up nephrology outpatient Hyponatremia - hyponatremia, from CHF -Improving fluid restriction to 1500cc/day -Some improvement in serum hyponatremia, 134 today Acute encephalopathy Now resolved CT head wnl will discontinue morphine, also continue to hold Gabapentin, Flexeril Physical Deconditioning Will need rehab per PT Chronic: #Asthma- no recent exacerbations; albuterol inhaler as needed, montelukast #GERD- Omeprazole #RLS- Ropinirole, increase to 0.5mg BID #HLD- Simvastatin #Tremor- Follows with neuro Dispo: PCU/telemetry VTE prophylaxis: Eliquis Code: FULL Disposition: Hopefully d/c to rehab when accepted Admission and Anticipated Discharge Date Admission Date: January 21, 2025 Subjective patient seen and examined, she is much stronger today, sitting up in the chair, tolerating diet Review of Systems Review of Systems: All systems reviewed are negative, apart from the ones contained in the history. Physical Exam Physical Exam: The patient is awake, alert and oriented 3, well developed and well nourished, normocephalic and atraumatic, lying in bed and in no acute distress. HEENT--PERRL, EOMI, mucous membranes and oropharynx mildly dry Neck--supple. No JVD. No bruits. Thyroid normal, trachea midline, no adenopathy. Heart--normal S1 and S2. No murmurs, rubs or gallops. Lungs--clear bilaterally, no respiratory distress, no accessory muscle use. Abdomen--normal bowel sounds and soft. Extremities--no cyanosis or clubbing. No edema. Dermatologic--normal skin turgor, normal color, no abnormal lymph nodes, no rash. Neurologic--cranial nerves II through XII grossly intact. Rheumatologic--normal range of motion. Psychiatric--normal affect. Results & Data Results & Data Vital Signs (Past 12 Hours) Vital Signs Temp Pulse Pulse Resp BP Pulse Ox O2 Del Method 01/28/25 10:39 63 01/28/25 09:20 Room Air 01/28/25 07:00 97.5 F L 77 18 169/79 H 96 Room Air 01/28/25 03:42 63 01/28/25 02:31 98.2 F 65 18 136/83 95 Room Air PG Care Time/CCT Total # of Minutes Spent Total Time Spent with Patient: Total time spent is greater than 50% in coordination of care (as documented) at patient's floor/unit and/or counseling patient: Coding Level of Care Code 47286 SUB INP/OBS CARE 2/35MIN Diagnoses Acute on chronic heart failure I50.9 Atrial fibrillation with rapid ventricular response I48.91 Renal insufficiency N28.9 Hypomagnesemia E83.42 Acute kidney injury superimposed on CKD N17.9; N18.9 Sepsis A41.9 Physical deconditioning R53.81 Time Spent (min) 35
[2025-01-28] MEDS: APIXABAN 5 MG TABLET PO SCH (19:20)
[2025-01-29 06:41] LABS: Hematocrit (blood only) 30.1 % (37.0-47.0); Hemoglobin 9.8 g/dl (12.0-16.0); Mean Corpuscular Hemoglobin 29.4 pg (25.0-34.0); Mean Corpuscular Hgb Conc 32.6 g/dL (32.0-36.0); Mean Corpuscular Volume 90.4 fL (80.0-100.0); Mean Platelet Volume 10.6 fL (9.4-12.4); Nucleated RBC # (auto) 0.02 K/uL (0.00-0.12); Nucleated RBC % (auto) 0.2 %; Platelet Count 288 K/uL (130-400); RDW Standard Deviation 53.1 fL (36.4-46.3); Red Blood Count 3.33 M/uL (4.20-5.40); White Blood Count 8.94 K/ul (4.8-10.8)
[2025-01-29 06:55] LABS: BUN Creatinine Ratio 25.8 (10-20); C Reactive Protein 8.03 mg/dl (0-0.5); Calcium 8.9 mg/dl (8.6-10.3); Creatinine Clr Calc Pharmacy 54.7 ml/min; Potassium 3.8 mmol/L (3.5-5.1)
--- NOTE | 2025-01-29 11:16 | Hospitalist Progress Note ---
Date of Service January 29, 2025 Assessment & Plan (1) Acute on chronic heart failure: (2) Atrial fibrillation with rapid ventricular response: (3) Renal insufficiency: (4) Hypomagnesemia: (5) Acute kidney injury superimposed on CKD: (6) Sepsis: (7) Physical deconditioning: Plan Brandee is a 79F w/ PMH of asthma, HTN, GERD, CKD, RLS, CHF, AFib (on Eliquis), and recurrent UTIs who presented for increasing dyspnea and work of breathing when laying down and was admitted for management of CHF. Patient received Metoprolol 5 mg IV x 2 for elevated rate w/ underlying A Fib. She received Lasix 40 mg IV x 2 for congestive changes d/t concern for CHF. Sepsis / Pulm Source Bilateral Pneumonia - Sepsis is improving -Biofire negative - CXR 01/21: Cardiomegaly with mild to moderate interstitial pulmonary edema which has progressed in the interval. Perihilar nodular airspace opacities more prominent on the left, likely representing a component of the congestive change. A superimposed pneumonia cannot be excluded. - CT Chest 01/21: bilateral pneumonia present -Completed IV cefepime, Transitioned to PO Augmentin till 02/03 -Patient is clinically much improved, shortness of breath is much improved. -Saturating well on room air -WBC is trending down, CRP also trending down Severe Back Pain - Patient with chronic lumbar back pain (L4-S1) a/w spinal surgeries - Pain now improved w/ intermittent icing and PRN Tylenol - Strength and sensation intact to UE/LE, no meningeal signs - CT Abdomen Pelvis 01/21: no acute changes Acute CHF Exacerbation w P EF - CXR on admission suggestive of congestive changes, BNP elevated to 600 -some crackles on exam -Last ECHO EF 60-65% - Mild troponin elevation w/o CP or EKG change, trend to peak - Will resume lasix - Monitor I/O, daily weights Afib with RVR - rate under better control - Continue home Eliquis - Can consider Metoprolol IV for rates persistently > 130 if BP allows - Echo stable w/ EF 60-65% - Magnesium repleted - Telemetry ongoing CKD/Renal insufficiency - HOLLY on CKD stage 3 -Creatinine rising in setting of sepsis/intravascular depletion - Avoid NSAIDS/nephrotoxic agents -Follows up nephrology outpatient Hyponatremia - hyponatremia, from CHF -Improving fluid restriction to 1500cc/day -Some improvement in serum hyponatremia, 135 today Acute encephalopathy Now resolved CT head wnl will discontinue morphine, also continue to hold Gabapentin, Flexeril Physical Deconditioning Will need rehab per PT Chronic: #Asthma- no recent exacerbations; albuterol inhaler as needed, montelukast #GERD- Omeprazole #RLS- Ropinirole, increase to 0.5mg BID #HLD- Simvastatin #Tremor- Follows with neuro Dispo: PCU/telemetry VTE prophylaxis: Eliquis Code: FULL Disposition: Hopefully d/c to rehab when accepted Admission and Anticipated Discharge Date Admission Date: January 21, 2025 Subjective patient seen and examined, she is much stronger today, participating in PT Review of Systems Review of Systems: All systems reviewed are negative, apart from the ones contained in the history. Physical Exam Physical Exam: The patient is awake, alert and oriented 3, well developed and well nourished, normocephalic and atraumatic, lying in bed and in no acute distress. HEENT--PERRL, EOMI, mucous membranes and oropharynx mildly dry Neck--supple. No JVD. No bruits. Thyroid normal, trachea midline, no adenopathy. Heart--normal S1 and S2. No murmurs, rubs or gallops. Lungs--clear bilaterally, no respiratory distress, no accessory muscle use. Abdomen--normal bowel sounds and soft. Extremities--no cyanosis or clubbing. No edema. Dermatologic--normal skin turgor, normal color, no abnormal lymph nodes, no rash. Neurologic--cranial nerves II through XII grossly intact. Rheumatologic--normal range of motion. Psychiatric--normal affect. Results & Data Results & Data Vital Signs (Past 12 Hours) Vital Signs Temp Pulse Pulse Resp BP Pulse Ox O2 Del Method 01/29/25 11:12 97.7 F 73 16 129/65 94 Room Air 01/29/25 07:40 97.9 F 85 16 163/77 H 98 Room Air 01/29/25 07:04 81 01/29/25 07:04 Room Air 01/29/25 03:22 97.5 F L 87 18 136/78 96 Room Air PG Care Time/CCT Total # of Minutes Spent Total Time Spent with Patient: Total time spent is greater than 50% in coordination of care (as documented) at patient's floor/unit and/or counseling patient: Coding Level of Care Code 33567 SUB INP/OBS CARE 2/35MIN Diagnoses Acute on chronic heart failure I50.9 Atrial fibrillation with rapid ventricular response I48.91 Renal insufficiency N28.9 Hypomagnesemia E83.42 Acute kidney injury superimposed on CKD N17.9; N18.9 Sepsis A41.9 Physical deconditioning R53.81 Time Spent (min) 35
[2025-01-30 07:19] LABS: Hematocrit (blood only) 28.3 % (37.0-47.0); Hemoglobin 9.1 g/dl (12.0-16.0); Mean Corpuscular Hemoglobin 29.2 pg (25.0-34.0); Mean Corpuscular Hgb Conc 32.2 g/dL (32.0-36.0); Mean Corpuscular Volume 90.7 fL (80.0-100.0); Mean Platelet Volume 10.3 fL (9.4-12.4); Nucleated RBC # (auto) 0.02 K/uL (0.00-0.12); Nucleated RBC % (auto) 0.2 %; Platelet Count 311 K/uL (130-400); RDW Coefficient of Variation 17.3 % (11.5-14.5); RDW Standard Deviation 54.4 fL (36.4-46.3); Red Blood Count 3.12 M/uL (4.20-5.40); White Blood Count 8.65 K/ul (4.8-10.8)
[2025-01-30 07:44] LABS: BUN Creatinine Ratio 23.3 (10-20); C Reactive Protein 6.67 mg/dl (0-0.5); Creatinine Clr Calc Pharmacy 59.2 ml/min; Potassium 3.8 mmol/L (3.5-5.1)
[2025-01-30] MEDS: FUROSEMIDE 40 MG TAB PO SCH (09:19)
--- NOTE | 2025-01-30 09:59 | Hospitalist Progress Note ---
Date of Service January 30, 2025 Assessment & Plan (1) Acute on chronic heart failure: (2) Atrial fibrillation with rapid ventricular response: (3) Renal insufficiency: (4) Hypomagnesemia: (5) Acute kidney injury superimposed on CKD: (6) Sepsis: (7) Physical deconditioning: Plan Brandee is a 79F w/ PMH of asthma, HTN, GERD, CKD, RLS, CHF, AFib (on Eliquis), and recurrent UTIs who presented for increasing dyspnea and work of breathing when laying down and was admitted for management of CHF. Patient received Metoprolol 5 mg IV x 2 for elevated rate w/ underlying A Fib. She received Lasix 40 mg IV x 2 for congestive changes d/t concern for CHF. Sepsis / Pulm Source Bilateral Pneumonia - Sepsis is improving -Biofire negative, cultures negaative -Completed IV cefepime, Transitioned to PO Augmentin till 02/03 -Patient is clinically much improved, shortness of breath is much improved. -Saturating well on room air -WBC is now wnl, CRP also trending down Severe Back Pain - Patient with chronic lumbar back pain (L4-S1) a/w spinal surgeries - Pain now improved w/ intermittent icing and PRN Tylenol - Strength and sensation intact to UE/LE, no meningeal signs - CT Abdomen Pelvis 01/21: no acute changes Acute CHF Exacerbation w P EF - CXR on admission suggestive of congestive changes, BNP elevated to 600 -Last ECHO EF 60-65% - Mild troponin elevation w/o CP or EKG change, trend to peak - Will resume lasix - Monitor I/O, daily weights Afib with RVR - rate under better control - Continue home Eliquis - Can consider Metoprolol IV for rates persistently > 130 if BP allows - Echo stable w/ EF 60-65% - Magnesium repleted - Telemetry ongoing CKD/Renal insufficiency - HOLLY on CKD stage 3 -Creatinine has normalized - Avoid NSAIDS/nephrotoxic agents -Follows up nephrology outpatient Hyponatremia - hyponatremia, from CHF -Now resolved fluid restriction to 1500cc/day Acute encephalopathy Now resolved CT head wnl will discontinue morphine, also continue to hold Gabapentin, Flexeril Physical Deconditioning Will need rehab per PT Chronic: #Asthma- no recent exacerbations; albuterol inhaler as needed, montelukast #GERD- Omeprazole #RLS- Ropinirole, increase to 0.5mg BID #HLD- Simvastatin #Tremor- Follows with neuro Dispo: PCU/telemetry VTE prophylaxis: Jessica Code: FULL Disposition: Hopefully d/c to rehab when accepted Admission and Anticipated Discharge Date Admission Date: January 21, 2025 Subjective patient seen and examined, she is much stronger today, participating in PT Review of Systems Review of Systems: All systems reviewed are negative, apart from the ones contained in the history. Physical Exam Physical Exam: The patient is awake, alert and oriented 3, well developed and well nourished, normocephalic and atraumatic, lying in bed and in no acute distress. HEENT--PERRL, EOMI, mucous membranes and oropharynx mildly dry Neck--supple. No JVD. No bruits. Thyroid normal, trachea midline, no adenopathy. Heart--normal S1 and S2. No murmurs, rubs or gallops. Lungs--clear bilaterally, no respiratory distress, no accessory muscle use. Abdomen--normal bowel sounds and soft. Extremities--no cyanosis or clubbing. No edema. Dermatologic--normal skin turgor, normal color, no abnormal lymph nodes, no rash. Neurologic--cranial nerves II through XII grossly intact. Rheumatologic--normal range of motion. Psychiatric--normal affect. Results & Data Results & Data Vital Signs (Past 12 Hours) Vital Signs Temp Pulse Resp BP Pulse Ox O2 Del Method 01/30/25 07:53 97.9 F 81 18 176/94 H 98 Room Air 01/30/25 07:10 Room Air 01/30/25 02:45 98.2 F 81 18 156/81 H 92 Room Air 01/29/25 22:33 98.1 F 67 18 154/72 H 94 Room Air PG Care Time/CCT Total # of Minutes Spent Total Time Spent with Patient: Total time spent is greater than 50% in coordination of care (as documented) at patient's floor/unit and/or counseling patient: Coding Level of Care Code 02178 SUB INP/OBS CARE 2/35MIN Diagnoses Acute on chronic heart failure I50.9 Atrial fibrillation with rapid ventricular response I48.91 Renal insufficiency N28.9 Hypomagnesemia E83.42 Acute kidney injury superimposed on CKD N17.9; N18.9 Sepsis A41.9 Physical deconditioning R53.81 Time Spent (min) 35
[2025-01-30] MEDS: ALBUTEROL HFA 8 GM INHALER INH PRN (10:45)
[2025-01-31 06:29] LABS: Hematocrit (blood only) 29.2 % (37.0-47.0); Hemoglobin 9.2 g/dl (12.0-16.0); Mean Corpuscular Hemoglobin 28.8 pg (25.0-34.0); Mean Corpuscular Hgb Conc 31.5 g/dL (32.0-36.0); Mean Corpuscular Volume 91.5 fL (80.0-100.0); Mean Platelet Volume 10.4 fL (9.4-12.4); Platelet Count 277 K/uL (130-400); RDW Coefficient of Variation 17.3 % (11.5-14.5); RDW Standard Deviation 54.5 fL (36.4-46.3); Red Blood Count 3.19 M/uL (4.20-5.40); White Blood Count 7.76 K/ul (4.8-10.8)
[2025-01-31 06:51] LABS: BUN Creatinine Ratio 20.7 (10-20); C Reactive Protein 6.1 mg/dl (0-0.5); Calcium 8.8 mg/dl (8.6-10.3); Creatinine Clr Calc Pharmacy 57.2 ml/min; Potassium 4.4 mmol/L (3.5-5.1)
[2025-01-31] MEDS: KETOROLAC TROMETHAMINE 15 MG/ML VIAL IV STA (09:34)
--- NOTE | 2025-01-31 10:46 | Hospitalist Progress Note ---
Date of Service January 31, 2025 Assessment & Plan (1) Acute on chronic heart failure: (2) Atrial fibrillation with rapid ventricular response: (3) Renal insufficiency: (4) Hypomagnesemia: (5) Acute kidney injury superimposed on CKD: (6) Sepsis: (7) Physical deconditioning: Plan Brandee is a 79F w/ PMH of asthma, HTN, GERD, CKD, RLS, CHF, AFib (on Eliquis), and recurrent UTIs who presented for increasing dyspnea and work of breathing when laying down and was admitted for management of CHF. Patient received Metoprolol 5 mg IV x 2 for elevated rate w/ underlying A Fib. She received Lasix 40 mg IV x 2 for congestive changes d/t concern for CHF. Sepsis / Pulm Source Bilateral Pneumonia - Sepsishas resolved -Biofire negative, cultures negaative -Completed IV cefepime, Transitioned to PO Augmentin till 02/03 -Patient is clinically much improved, shortness of breath is much improved. -Saturating well on room air -WBC is now wnl, CRP also trending down Severe Back Pain - Patient with chronic lumbar back pain (L4-S1) a/w spinal surgeries - Pain now improved w/ intermittent icing and PRN Tylenol - Strength and sensation intact to UE/LE, no meningeal signs - CT Abdomen Pelvis 01/21: no acute changes Acute CHF Exacerbation w P EF - CXR on admission suggestive of congestive changes, BNP elevated to 600 -Last ECHO EF 60-65% - Mild troponin elevation w/o CP or EKG change, trend to peak - Will resume home lasix 40mg daily - Monitor I/O, daily weights Afib with RVR - rate under better control - Continue home Eliquis - Can consider Metoprolol IV for rates persistently > 130 if BP allows - Echo stable w/ EF 60-65% - Magnesium repleted - Telemetry ongoing CKD/Renal insufficiency - HOLLY on CKD stage 3 -Creatinine has normalized - Avoid NSAIDS/nephrotoxic agents -Follows up nephrology outpatient Hyponatremia - hyponatremia, from CHF -Now resolved fluid restriction to 1500cc/day Acute encephalopathy Now resolved CT head wnl will discontinue morphine, also continue to hold Gabapentin, Flexeril Physical Deconditioning Will need rehab per PT Chronic: #Asthma- no recent exacerbations; albuterol inhaler as needed, montelukast #GERD- Omeprazole #RLS- Ropinirole, increase to 0.5mg BID #HLD- Simvastatin #Tremor- Follows with neuro Dispo: PCU/telemetry VTE prophylaxis: Lilyq[place]atalie Code: FULL Disposition: Hopefully d/c to rehab when accepted. Please discontinue gabapentin, Flexeril upon discharge, I believe that was the leading cause of her delirium and encephalopathy at some point Admission and Anticipated Discharge Date Admission Date: January 21, 2025 Subjective patient seen and examined, she is much stronger today, participating in PT Review of Systems Review of Systems: All systems reviewed are negative, apart from the ones contained in the history. Physical Exam Physical Exam: The patient is awake, alert and oriented 3, well developed and well nourished, normocephalic and atraumatic, lying in bed and in no acute distress. HEENT--PERRL, EOMI, mucous membranes and oropharynx mildly dry Neck--supple. No JVD. No bruits. Thyroid normal, trachea midline, no adenopathy. Heart--normal S1 and S2. No murmurs, rubs or gallops. Lungs--clear bilaterally, no respiratory distress, no accessory muscle use. Abdomen--normal bowel sounds and soft. Extremities--no cyanosis or clubbing. No edema. Dermatologic--normal skin turgor, normal color, no abnormal lymph nodes, no rash. Neurologic--cranial nerves II through XII grossly intact. Rheumatologic--normal range of motion. Psychiatric--normal affect. Results & Data Results & Data Vital Signs (Past 12 Hours) Vital Signs Temp Pulse Pulse Resp BP Pulse Ox O2 Del Method 01/31/25 10:24 80 01/31/25 07:06 97.9 F 88 20 154/79 H 96 Room Air 01/31/25 07:01 Room Air 01/31/25 02:34 98.4 F 78 18 154/81 H 96 Room Air 01/30/25 23:51 97.7 F 78 20 151/80 H 96 Room Air PG Care Time/CCT Total # of Minutes Spent Total Time Spent with Patient: Total time spent is greater than 50% in coordination of care (as documented) at patient's floor/unit and/or counseling patient: Coding Level of Care Code 86123 SUB INP/OBS CARE 2/35MIN Diagnoses Acute on chronic heart failure I50.9 Atrial fibrillation with rapid ventricular response I48.91 Renal insufficiency N28.9 Hypomagnesemia E83.42 Acute kidney injury superimposed on CKD N17.9; N18.9 Sepsis A41.9 Physical deconditioning R53.81 Time Spent (min) 35
[2025-01-31] MEDS: MAGNESIUM SULFATE / D5W 1 GM/100 ML BAG IV SCH (15:38)
[2025-02-01 07:45] VITALS: BP 155/72; RESP 18; TEMP 97.5; O2SAT 95
--- NOTE | 2025-02-01 11:19 | Discharge Summary ---
Discharge Summary Date of Service February 01, 2025 Principal Dx & Hospital Course #1 = Principal Diagnosis (1) Acute on chronic heart failure: CXR on admission suggestive of congestive changes, BNP elevated to 600 -Last ECHO EF 60-65% - Mild troponin elevation w/o CP or EKG change, trend 50.9>>then 17.1 - Will resume home lasix 40mg daily -Patient is saturating 95% on room air (2) Atrial fibrillation with rapid ventricular response: ate under better control - Continue home Eliquis - Pulse on the day of discharge is 82 - Echo stable w/ EF 60-65% - Magnesium repleted - (3) Renal insufficiency: HOLLY on CKD stage 3 -Creatinine has normalized creatinine is 0.87 - Avoid NSAIDS/nephrotoxic agents -Follows up nephrology outpatient (4) Hypomagnesemia: Magnesium will be repleted and discussed with patient to eat green leafy vegetables as source of magnesium (5) Acute kidney injury superimposed on CKD: Creatinine has improved (6) Sepsis: This was present on admission now resolved (7) Physical deconditioning: Patient is able to walk with a walker Enoc Irvin is a 79F w/ PMH of asthma, HTN, GERD, CKD, RLS, CHF, AFib (on Eliquis), and recurrent UTIs who presented for increasing dyspnea and work of breathing when laying down and was admitted for management of CHF. Patient received Metoprolol 5 mg IV x 2 for elevated rate w/ underlying A Fib. She received Lasix 40 mg IV x 2 for congestive changes d/t concern for CHF. Sepsis 2/2 Pulm Source Bilateral Pneumonia - Sepsis has resolved -Biofire negative, cultures negaative -Completed IV cefepime, Transitioned to PO Augmentin till 02/03 -Patient is clinically much improved, shortness of breath is much improved. -Saturating well on room air -WBC is now wnl, CRP also trending down Severe Back Pain - Patient with chronic lumbar back pain (L4-S1) a/w spinal surgeries - Pain now improved w/ intermittent icing and PRN Tylenol - Strength and sensation intact to UE/LE, no meningeal signs - CT Abdomen Pelvis 01/21: no acute changes Acute CHF Exacerbation w P EF - CXR on admission suggestive of congestive changes, BNP elevated to 600 -Last ECHO EF 60-65% - Mild troponin elevation w/o CP or EKG change, trend to peak - Will resume home lasix 40mg daily - Monitor I/O, daily weights Afib with RVR - CKD/Renal insufficiency - Hyponatremia - hyponatremia, from CHF -Now resolved fluid restriction to 1500cc/day Acute encephalopathy Now resolved CT head wnl will discontinue morphine, also continue to hold Gabapentin, Flexeril Physical Deconditioning Will need rehab per PT Chronic: #Asthma- no recent exacerbations; albuterol inhaler as needed, montelukast #GERD- Omeprazole #RLS- Ropinirole, increase to 0.5mg BID #HLD- Simvastatin #Tremor- Follows with neuro Dispo: PCU/telemetry VTE prophylaxis: Eliquis Code: FULL Disposition: Hopefully d/c to rehab when accepted. Please discontinue gabapentin, Flexeril upon discharge, I believe that was the leading cause of her delirium and encephalopathy at some point 02/01 noted from case management insurance has denied admission to rehab according to case management patient did pretty well with therapy yesterday and her had her out walking in the hallway yesterday afternoon so I think the patient should be okay to go home with home health Notes For Next Care Provider Medication Changes From Visit Patient was seen by physical therapy she is considered high risk for fall since patient was denied admission to [facility] facility and she is able to walk with a walker and support from she would like to go home with home health physical therapy occupational therapy nurse evaluation for medication management Admission HPI Per Admitting Provider 79-year-old female PMHx asthma, HTN, GERD, CKD, RLS, CHF, A-fib on Eliquis, and frequent UTIs presenting for increased SOB starting the night [employer]. Patient states that she had a onset of shortness of breath that occurred the night [employer] and her notes that SOB worsened when she was laying flat. States that this is similar to an episode that happened a few years ago when she was in acute heart failure exacerbation. States that overall her weights are stable but she does notice a little bit of swelling in her legs. She is not having any chest pain or chest pressure. She is having SOB but states that it is better when she is sitting upright. Patient does have a chronic cough which is slightly exacerbated at this time, but no production of sputum. Overall denying URI symptoms, fever/chills, chest pain, palpitations, abdominal pain, N/V/D/C, LUTS, or numbness/tingling. ED evaluation reveals leukocytosis 12.5, H&H 9.8/30, PT/INR 13.7/1.3, APTT 37; CMP sodium 134, anion gap 12, BUN 29, creatinine 1.56, glucose 110, magnesium 1.3, troponin 17.1, BNP 604; BioFire negative CXR cardiomegaly and mild to moderate interstitial pulmonary edema which has progressed in the interval, also with perihilar nodular airspace opacities more prominent on L likely episode of comparative congestion change. Provided with metoprolol tartrate 5 mg IV x 1, magnesium sulfate 1 g, and furosemide 40 mg IV in ED. Please see Dr. Fritz's attestation for adjustments/additions to treatment plan. Discharge Exam VITALS: Reviewed. WEIGHT/BMI reviewed. GEN: mildly sick appearing, well-developed, NAD. PSYCH: Good Judgment. AOx3. Normal memory, mood, and affect. HEENT -Head: NC/AT;, -Eyes: PERRL, EOMI. No discharge or redness; -Ears: External ears are normal. Normal TMs. -Nose: Normal nares. -Mouth and throat: MMM. Normal gums, mucosa, palate,. Good dentition. cough which is dry NECK: Supple, with no masses. CV: RRR, no m/r/g. LUNGS: CTAB, no w/r/c. ABD: Soft, NT/ND, NBS, no masses or organomegaly.obese , patient has multiple surgeries on her spine for chronic degenerative joint diseases and lumbar spine : N/A SKIN: Warm, well perfused. No skin rashes or abnormal lesions. MSK: No deformities, Normal gait., Bilateral status post total knee arthroplasty EXT: No clubbing, cyanosis, or edema. NEURO: Ambulating with no limitations. Normal muscle strength and tone. No focal deficits. Updated Medication List Medication Instructions Recorded Confirmed Type [id number] 1 tab PO QAM 12/01/18 01/21/25 History capsule (Glucosamine Complex-MSM capsule) albuterol sulfate 90 mcg/actuation 2 puff inhalation Q6H PRN sob #6.7 01/03/20 01/21/25 Rx aerosol inhaler grams multivitamin 1 tab PO QAM 02/21/21 01/21/25 History diclofenac sodium 1 % topical gel 2 g topical QID PRN pain #100 grams 04/12/22 01/21/25 Rx metoprolol tartrate 25 mg tablet 25 mg PO BID #180 tabs 02/12/24 01/21/25 Rx mometasone-formoterol HFA 200 2 puff inhalation Q12H #39 grams 03/30/24 01/21/25 Rx mcg-5 mcg/actuation aerosol inhaler (Dulera) cinacalcet 30 mg tablet (Sensipar) 30 mg PO QAM 04/15/24 01/21/25 History vitamin A-vitamin C-vit E-min 1 tab PO QAM 04/15/24 01/21/25 History tablet ropinirole 0.25 mg tablet 0.25 mg PO QPM #90 tabs 09/14/24 01/21/25 Rx montelukast 10 mg tablet 10 mg PO QAM #90 tabs 11/15/24 01/21/25 Rx omeprazole 40 mg capsule,delayed 40 mg PO QAM #90 caps 11/19/24 01/21/25 Rx release apixaban 5 mg tablet (Eliquis) 5 mg PO BID #200 tabs 12/02/24 01/21/25 Rx gabapentin 300 mg capsule 300 mg PO BID 90 days #180 caps 01/11/25 01/21/25 Rx simvastatin 20 mg tablet 20 mg PO QPM #90 tabs 01/11/25 01/21/25 Rx furosemide 40 mg tablet 40 mg PO BID 01/21/25 01/21/25 History acetaminophen 500 mg tablet 1,000 mg (2 x 500 mg) PO Q8H PRN 02/01/25 Rx (Tylenol Extra Strength) fever or pain 10 days #30 tabs amlodipine 5 mg tablet (Norvasc) 5 mg PO QAM 30 days #30 tabs 02/01/25 Rx amoxicillin 875 mg-potassium 1 tab PO BIDM 4 days #8 tabs 02/01/25 Rx clavulanate 125 mg tablet benzocaine 15 mg-menthol 3.6 mg 1 hilario buccal Q2H PRN sore throat 02/01/25 Rx lozenges (Cepacol Sore Throat 30 days #60 ea (benzocaine-menthol)) guaifenesin 600 mg tablet, 1,200 mg (2 x 600 mg) PO Q12 15 02/01/25 Rx extended release 12 hr (Mucinex) days #60 tabs Hospital Stay Data Consultations 01/21/25 06:01 ED Decision to Admit Stat Diagnostic Imagining Performed 01/21/25 14:47 CT Abdomen and Pelvis [CT abd pelvis wo con] Stat CT chest diagnostic wo con Stat 01/25/25 17:44 CT head/brain wo con Routine 01/25/25 19:04 CT lumbar spine wo con Stat Total Time Total Time Spent Total Time Spent (In Minutes): 55 minutes Home Health Attestation I certify that this patient is under my care and that I, or a physicians acute care certified nursing assistant working with me, had a face to-face encounter that meets the home health tynx-ic-qtsu encounter requirements with this patient. The encounter with the patient was in whole, or in part, for the following medical condition, which is the primary reason for home health care Patient recovering from sepsis due to pneumonia Acute kidney injury superimposed on chronic kidney injury Acute on chronic heart failure Hypomagnesemia Atrial fibrillation with rapid ventricular response Acute dyspnea Bilateral leg pain scoliosis of lumbosacral region due to degenerative diseases of the spine I certify that, based on my findings, the following services are medically necessary home health services: Physical therapy occupational therapy Fall risk mitigation Chronic pain Nurse evaluation and treatment, medication management we are discontinuing gabapentin and Flexeril as this could be a potential cause of her delirium My clinical findings support the need for the above services because: Patient has limited mobility because of significant weakness and disability due to prolonged hospital stay Further, I certify that my clinical findings support that this patient is homebound (i.e. absences from home require considerable and taxing effort and are for medical reasons or gnosticist services or infrequently or of short duration when for other reasons) because: Risk of fall, and extreme weakness due to recovering from illness so Certification for Home Health Services: Based on the above findings, I certify that this patient is confined to the home and needs intermittent fpc care, physical therapy and/or speech therapy or continues to need occupational therapy. The patient is under my care, and I have initiated the establishment of the plan of care. This patient will be followed by a physician who will periodically review the plan of care.
--- NOTE | 2025-02-01 11:20 | Billing Data ---
Date of Service February 01, 2025 Coding Level of Care Code 33210 INP/OBS DISCH >30 MIN
[2025-02-01 13:06] VITALS: PULSE 68
== END 2025-02-01 13:47 | disposition home health service (06) | DRG 871 ==
LOC: SUATTDRO → ED 02:55 → SUATTDRO 06:10 → 4W 06:10